=== PATIENT | male | born 1935 | race Caucasian/White ===

== ENCOUNTER → 2016-05-11 | Outpatient (CLI) | payer MEDICARE, BC | END | disposition home or self-care (01) | LOC: CPPFTMAIN 10:16 | PROVIDERS: ATTEND Internal Medicine | DX: J44.9 Chronic obstructive pulmonary disease, unspecified (principal) | CPT/HCPCS: 94060; 94726; 94729 ==

== ENCOUNTER 2017-03-31 07:30 | Day surgery (SDC) | payer MEDICARE, BC ==
[2017-03-30 10:50] VITALS: BMI 24.3
[~2017-03-31 07:30] MED LIST: LACTATED RINGERS 1,000 ML IV SCH
[2017-03-31 08:18] VITALS: TEMP 96.6
[2017-03-31] MEDS ORDERED: PROPOFOL 10 MG/ML 20 ML VIAL IV ONE (09:24)
--- NOTE | 2017-03-31 09:58 | P.PCN ---
Date of Procedure: 03/31/17 Procedure(s) Performed: Procedure: Total colonoscopy. Preoperative diagnosis: Screening for neoplasia, patient has history of polyps. Postoperative diagnosis: Exam within normal limits. Preparation: HalfLytely prep. Sedation: Was provided by anesthesia. Brief clinical history: The patient is an 81-year-old male who is scheduled for this evaluation for screening for neoplasia because of history of polyps. The patient has no abdominal complaints, bleeding or anemia. His last colonoscopy was around 5 years ago. Procedure: With the patient on his left lateral decubitus position and after informed consent and adequate sedation, the perianal area was inspected and it did not show any fissures or fistulas. There were no masses felt on digital rectal examination. The Olympus CFQ 160L video colonoscope was then inserted in the rectum in the usual fashion and advanced to the cecum. The mucosa appeared healthy. No polyps or tumors were seen or any obvious diverticular disease or other pathology. I retroflexed the endoscope in the rectum before the endoscope was withdrawn. The patient tolerated the procedure well. Plan: The patient was reassured. At his age, I did not recommend additional surveillance examinations and future colonoscopies can be based on his overall health and symptoms in the future. He will follow up with you as planned.
[2017-03-31 10:05] VITALS: RESP 18
[2017-03-31 10:50] VITALS: BP 145/80; PULSE 59
== END 2017-03-31 10:52 | disposition home or self-care (01) ==
LOC: ORWHC2ENDO 07:30
DX: Z12.11 Encounter for screening for malignant neoplasm of colon (principal); Z86.010 Personal history of colon polyps; I48.91 Unspecified atrial fibrillation; J45.909 Unspecified asthma, uncomplicated; I10 Essential (primary) hypertension; Z88.5 Allergy status to narcotic agent; Z88.0 Allergy status to penicillin; Z79.51 Long term (current) use of inhaled steroids; Z79.899 Other long term (current) drug therapy
CPT/HCPCS: J2704; G0105

== ENCOUNTER → 2017-09-19 | Outpatient (CLI) | payer MEDICARE, BC | END | disposition home or self-care (01) | LOC: LABWHC1 12:04 | PROVIDERS: ATTEND Orthopaedic Surgery | DX: E55.9 Vitamin D deficiency, unspecified (principal) | CPT/HCPCS: 36415; 82306 ==

== ENCOUNTER 2019-02-20 10:14 | Observation (INO) | payer MEDICARE, BC ==
--- NOTE | 2019-02-20 10:42 | ED ---
General Adult HPI - General Chief complaint: Chest Pain Stated complaint: Palpitations Source: patient, family Mode of arrival: ambulatory Limitations: no limitations - History of Present Illness Initial comments: 83-year-old male patient presents to the emergency department today for evaluation of left-sided chest pain and palpitations. He is having associated shortness of breath with this. Describes the pain as a pressure type feeling. Denied any pain radiating to his back. Patient states this started around 4:30 this morning and lasted about 4-5 hours. States that he is currently feeling better. Patient states he has been sick with upper respiratory infection incl uding cough and nasal congestion. States he is coughing up [place] sputum. Denies any wheezing. Does have a history of atrial fibrillation and is currently rate controlled and taking pradaxa. Patient denies any recent rash, fever, chills, abdominal pain, nausea, vomiting, diarrhea, constipation, back pain, numbness, tingling, dizziness, weakness, hematuria, dysuria, urinary urgency, urinary frequency, headache, visual changes, or any other complaints. - Related Data Home Medications Medication Instructions Recorded Confirmed Albuterol Inhaler [Ventolin Hfa 1 - 2 puff INHALATION Q6HR PRN 03/30/17 03/30/17 Inhaler] Atenolol [Tenormin] 25 mg PO DAILY 03/30/17 03/30/17 Budesonide/Formoterol Fumarate 2 puff INHALATION BID 03/30/17 03/30/17 [Symbicort 160-4.5 Mcg Inhaler] Cholecalciferol [Vitamin D3] 1,000 unit PO DAILY 03/30/17 03/30/17 Dabigatran [Pradaxa] 75 mg PO BID 03/30/17 03/30/17 Hydrochlorothiazide 25 mg PO DAILY 03/30/17 03/30/17 Latanoprost Ophth [Xalatan 0.005%] 1 drops BOTH EYES HS 03/30/17 03/30/17 Losartan [Cozaar] 25 mg PO DAILY 03/30/17 03/30/17 Allergies Allergy/AdvReac Type Severity Reaction Status Date / Time codeine Allergy Rash/Hives Verified 02/20/19 10:20 Penicillins Allergy facial Verified 02/20/19 10:20 swelling Review of Systems ROS Statement: Those systems with pertinent positive or pertinent negative responses have been documented in the HPI. ROS Other: All systems not noted in ROS Statement are negative. Past Medical History Past Medical History: Atrial Fibrillation, Asthma, Hypertension Additional Past Medical History / Comment(s): hx. colon polyps History of Any Multi-Drug Resistant Organisms: None Reported Past Surgical History: Heart Catheterization Additional Past Surgical History / Comment(s): colonoscopies Past Anesthesia/Blood Transfusion Reactions: No Reported Reaction Past Psychological History: No Psychological Hx Reported Smoking Status: Former smoker Past Alcohol Use History: None Reported Past Drug Use History: None Reported - Past Family History Sister(s) Family Medical History: Cancer Additional Family Medical History / Comment(s): colon Brother(s) Family Medical History: Cancer Additional Family Medical History / Comment(s): colon General Exam Limitations: no limitations General appearance: alert, in no apparent distress, other (This is a well- developed, well-nourished elderly male patient in no acute distress. Vital signs upon presentation are temperature 97.9F, pulse of 55, respirations 20, blood pressure 151/76, pulse ox 99% on room air.) Eye exam: Present: normal appearance, PERRL, EOMI. Absent: scleral icterus, conjunctival injection, periorbital swelling ENT exam: Present: normal exam, normal oropharynx, mucous membranes moist Respiratory exam: Present: normal lung sounds bilaterally. Absent: respiratory distress, wheezes, rales, rhonchi, stridor Cardiovascular Exam: Present: regular rate, irregular rhythm, normal heart sounds. Absent: systolic murmur, diastolic murmur, rubs, gallop, clicks GI/Abdominal exam: Present: soft, normal bowel sounds. Absent: distended, tenderness, guarding, rebound, rigid Neurological exam: Present: alert, oriented X3, CN II-XII intact Psychiatric exam: Present: normal affect, normal mood Skin exam: Present: warm, dry, intact, normal color. Absent: rash Course Vital Signs 02/20/19 02/20/19 02/20/19 10:17 10:30 11:00 Temperature 97.9 F Pulse Rate 55 L 71 49 L Respiratory 20 17 16 Rate Blood Pressure 151/76 160/80 O2 Sat by Pulse 99 98 98 Oximetry 02/20/19 02/20/19 11:30 12:20 Temperature 97.7 F Pulse Rate 50 L 47 L Respiratory 16 15 Rate Blood Pressure 149/95 158/97 O2 Sat by Pulse 98 100 Oximetry EKG Findings - EKG Comments: EKG Findings:: EKG obtained at 1027 shows atrial fibrillation with premature ventricular complexes. Ventricular rate is 61, QRS duration 100, QT 410, QTC 412. No evidence of ST elevation or depression. Medical Decision Making - Medical Decision Making 83-year-old male patient presents to the emergency department today after having 4 hour episode of left-sided chest pain and shortness of breath. Physical examination very clear equal lung sounds. He is in A. fib with a controlled ventricular response. Labs reviewed and were unremarkable. Initial troponin was negative. Giving history and symptoms we will admit to the hospital for further evaluation by cardiology and cardiac monitoring. He verbalizes understanding and agrees with this plan. - Lab Data Result diagrams: 02/20/19 10:39 02/20/19 10:39 Lab Results 02/20/19 02/20/19 02/20/19 Range/Units 10:39 10:39 10:39 WBC 5.2 (3.8-10.6) k/uL RBC 3.98 L (4.30-5.90) m/uL Hgb 12.2 L (13.0-17.5) gm/dL Hct 36.4 L (39.0-53.0) % MCV 91.4 (80.0-100.0) fL MCH 30.6 (25.0-35.0) pg MCHC 33.4 (31.0-37.0) g/dL RDW 12.0 (11.5-15.5) % Plt Count 144 L (150-450) k/uL Neutrophils % 68 % Lymphocytes % 18 % Monocytes % 6 % Eosinophils % 5 % Basophils % 0 % Neutrophils # 3.5 (1.3-7.7) k/uL Lymphocytes # 0.9 L (1.0-4.8) k/uL Monocytes # 0.3 (0-1.0) k/uL Eosinophils # 0.3 (0-0.7) k/uL Basophils # 0.0 (0-0.2) k/uL PT 12.4 H (9.0-12.0) sec INR 1.2 H (<1.2) APTT 37.5 H (22.0-30.0) sec Sodium 132 L (137-145) mmol/L Potassium 4.1 (3.5-5.1) mmol/L Chloride 97 L (98-107) mmol/L Carbon Dioxide 27 (22-30) mmol/L Anion Gap 8 mmol/L BUN 13 (9-20) mg/dL Creatinine 0.70 (0.66-1.25) mg/dL Est GFR (CKD-EPI)AfAm >90 (>60 ml/min/1.73 sqM) Est GFR (CKD-EPI)NonAf 88 (>60 ml/min/1.73 sqM) Glucose 101 H (74-99) mg/dL Calcium 9.8 (8.4-10.2) mg/dL Magnesium 1.6 (1.6-2.3) mg/dL Total Bilirubin 0.8 (0.2-1.3) mg/dL AST 33 (17-59) U/L ALT 28 (4-49) U/L Alkaline Phosphatase 56 (38-126) U/L Troponin I (0.000-0.034) ng/mL Total Protein 6.8 (6.3-8.2) g/dL Albumin 4.2 (3.5-5.0) g/dL 02/20/19 Range/Units 10:39 WBC (3.8-10.6) k/uL RBC (4.30-5.90) m/uL Hgb (13.0-17.5) gm/dL Hct (39.0-53.0) % MCV (80.0-100.0) fL MCH (25.0-35.0) pg MCHC (31.0-37.0) g/dL RDW (11.5-15.5) % Plt Count (150-450) k/uL Neutrophils % % Lymphocytes % % Monocytes % % Eosinophils % % Basophils % % Neutrophils # (1.3-7.7) k/uL Lymphocytes # (1.0-4.8) k/uL Monocytes # (0-1.0) k/uL Eosinophils # (0-0.7) k/uL Basophils # (0-0.2) k/uL PT (9.0-12.0) sec INR (<1.2) APTT (22.0-30.0) sec Sodium (137-145) mmol/L Potassium (3.5-5.1) mmol/L Chloride (98-107) mmol/L Carbon Dioxide (22-30) mmol/L Anion Gap mmol/L BUN (9-20) mg/dL Creatinine (0.66-1.25) mg/dL Est GFR (CKD-EPI)AfAm (>60 ml/min/1.73 sqM) Est GFR (CKD-EPI)NonAf (>60 ml/min/1.73 sqM) Glucose (74-99) mg/dL Calcium (8.4-10.2) mg/dL Magnesium (1.6-2.3) mg/dL Total Bilirubin (0.2-1.3) mg/dL AST (17-59) U/L ALT (4-49) U/L Alkaline Phosphatase (38-126) U/L Troponin I <0.012 (0.000-0.034) ng/mL Total Protein (6.3-8.2) g/dL Albumin (3.5-5.0) g/dL - Radiology Data Radiology results: report reviewed, image reviewed Two-view x-ray of the chest is obtained. Report reviewed in its entirety. Imp ression by Dr. Sanchez shows mild cardiomegaly and chronic parenchymal changes without definitive suspicious acute infiltrate. Disposition Clinical Impression: Chest pain, Palpitations Disposition: ADMITTED IP TO THIS [facility] Condition: Serious Referrals: Kolby Juarez MD [Primary Care Provider] - 1-2 days Decision to Admit Reason: Admit from EC Decision Date: 02/20/19 Decision Time: 12:43
[2019-02-20 11:11] LABS: Basophils % (A) 0 %; Eosinophils # (A) 0.3 k/uL (0-0.7); Eosinophils % (A) 5 %; HCT 36.4 % (39.0-53.0); HGB 12.2 gm/dL (13.0-17.5); Lymphocytes # (A) 0.9 k/uL (1.0-4.8); Lymphocytes % (A) 18 %; MCH 30.6 pg (25.0-35.0); MCHC 33.4 g/dL (31.0-37.0); MCV 91.4 fL (80.0-100.0); Mean Platelet Volume 8.8; Monocytes # (A) 0.3 k/uL (0-1.0); Monocytes % (A) 6 %; Neutrophils # (A) 3.5 k/uL (1.3-7.7); Neutrophils % (A) 68 %; Platelet Count 144 k/uL (150-450); RBC 3.98 m/uL (4.30-5.90); WBC 5.2 k/uL (3.8-10.6)
--- NOTE | 2019-02-20 11:11 | XR ---
EXAMINATION TYPE: XR chest 2V DATE OF EXAM: 02/20/2019 COMPARISON: NONE HISTORY: Productive cough for one month. TECHNIQUE: Frontal and lateral views of the chest are obtained. FINDINGS: There is chronic parenchymal change bilaterally most prominent in the bases where left bas ilar opacity favors scarring and/or atelectasis.. No suspicious focal infiltrate, pleural effusion, o r pneumothorax. The cardiac silhouette size is mildly enlarged with atherosclerotic aorta. Multileve l spurring in the spine. IMPRESSION: Mild cardiomegaly and chronic parenchymal changes without definitive suspicious acute in filtrate.
[2019-02-20 11:21] LABS: INR 1.2 (<1.2); Partial Thromboplastin Time 37.5 sec (22.0-30.0); Prothrombin Time 12.4 sec (9.0-12.0)
[2019-02-20 11:35] LABS: ALT 28 U/L (4-49); AST 33 U/L (17-59); African American GFR (CKD) >90 (>60 ml/min/1.73 sqM); Albumin 4.2 g/dL (3.5-5.0); Alkaline Phosphatase 56 U/L (38-126); Anion Gap 8 mmol/L; Blood Urea Nitrogen 13 mg/dL (9-20); Calcium 9.8 mg/dL (8.4-10.2); Carbon Dioxide 27 mmol/L (22-30); Chloride 97 mmol/L (98-107); Glucose 101 mg/dL (74-99); Magnesium 1.6 mg/dL (1.6-2.3); Non-African American GFR(CKD) 88 (>60 ml/min/1.73 sqM); Potassium 4.1 mmol/L (3.5-5.1); Sodium 132 mmol/L (137-145); Total Bilirubin 0.8 mg/dL (0.2-1.3); Total Protein 6.8 g/dL (6.3-8.2)
[2019-02-20] MEDS ORDERED: NALOXONE 0.4 MG/ML 1 ML VIAL IV PRN (12:40)
[2019-02-20] MEDS ORDERED: MORPHINE SULFATE 4 MG/ML SYRINGE IVP PRN (12:43)
[2019-02-20] MEDS ORDERED: ASPIRIN 325 MG TAB PO STA (15:27)
[2019-02-20] MEDS ORDERED: traMADol 50 MG TAB PO PRN (15:30)
[2019-02-20] MEDS ORDERED: MELATONIN 3 MG TABLET PO PRN (15:30)
[2019-02-20] MEDS ORDERED: ACETAMINOPHEN TAB 325 MG TAB PO PRN (15:30)
[2019-02-20] MEDS ORDERED: ALBUTEROL NEBULIZED 2.5 MG/3 ML INHALATION PRN (15:44)
--- NOTE | 2019-02-20 15:53 | P.HPIM ---
History of Present Illness H&P Date: 02/20/19 Chief Complaint: chest pain Issue is a 83-year-old male past medical history of hypertension, A. fib anticoagulated with heart attacks, arthritis, GERD, and asthma who presented to the ER with complaints of chest pain. In the ER he underwent an extensive evaluation. His blood pressure was mildly elevated on arrival with a blood pressure 151/76. EKG showed atrial fibrillation with a slow ventricular response but no significant ST-T wave changes. Initial laboratory analysis showed a mild anemia with hemoglobin 12.2, platelet 144, sodium 132, and troponin was negative. He is admitted for chest pain observation. Patient seen and examined at bedside with present. He reports that he has been struggling with a cough beginning of January. He reports that he has been having some coughing productive of grayish sputum, postnasal drip, runny nose, and stuffy nose. He has been having some shortness of breath and intermittent wheezing. He has seen Dr. Juarez for this and completed 2 courses of antibiotics without significant improvement. He reports that he has been using nebulizer and inhalers appropriately. This morning he awoke suddenly with left sided chest heaviness which she states was worse when trying to lift his left arm. Was associated with increased shortness of breath area he did not take any aspirin but did take some Tylenol which seemed to help. He denied any associated sweating, nausea, vomiting, palpitations, numbness, tingling, or pain down his left arm or up into his jaw. He has never had a heart attack in the past. Pain is currently relieved it is not reproducible. Review of Systems Pertinent positives and negatives as discussed in HPI, a complete review of systems was performed and all other systems are negative. Past Medical History Past Medical History: Atrial Fibrillation, Asthma, Hypertension, Osteoarthritis (OA) Additional Past Medical History / Comment(s): hx. colon polyps, GERD, glaucoma, borderline diabetes mellitus History of Any Multi-Drug Resistant Organisms: None Reported Past Surgical History: Heart Catheterization Additional Past Surgical History / Comment(s): colonoscopies Past Anesthesia/Blood Transfusion Reactions: No Reported Reaction Past Psychological History: No Psychological Hx Reported Smoking Status: Former smoker Past Alcohol Use History: Occasional Additional Past Alcohol Use History / Comment(s): Drinks twice weekly, quit smoking @age of 33, smoked from late teen's to 33 Past Drug Use History: None Reported Additional History: Lives with his , no assistive devices - Past Family History Sister(s) Family Medical History: Cancer Additional Family Medical History / Comment(s): colon Brother(s) Family Medical History: Cancer Additional Family Medical History / Comment(s): colon Medications and Allergies Home Medications Medication Instructions Recorded Confirmed Type Albuterol Inhaler [Ventolin Hfa 1 - 2 puff INHALATION RT-Q6H PRN 03/30/17 02/20/19 History Inhaler] Atenolol [Tenormin] 25 mg PO DAILY 03/30/17 02/20/19 History Budesonide/Formoterol Fumarate 2 puff INHALATION RT-BID 03/30/17 02/20/19 Hi story [Symbicort 160-4.5 Mcg Inhaler] Cholecalciferol [Vitamin D3] 1,000 unit PO DAILY 03/30/17 02/20/19 History Dabigatran [Pradaxa] 75 mg PO BID 03/30/17 02/20/19 History Hydrochlorothiazide 25 mg PO DAILY 03/30/17 02/20/19 History Latanoprost Ophth [Xalatan 0.005%] 1 drops RIGHT EYE HS 03/30/17 02/20/19 History Albuterol Nebulized [Ventolin 2.5 mg INHALATION RT-Q6H PRN 02/20/19 02/20/19 History Nebulized] Fluticasone Nasal [place] [Flonase 1 spr EA NOSTRIL HS 02/20/19 02/20/19 History Nasal [place]] Losartan Potassium [Cozaar] 100 mg PO DAILY 02/20/19 02/20/19 History Allergies Allergy/AdvReac Type Severity Reaction Status Date / Time codeine Allergy Rash/Hives Verified 02/20/19 12:56 Penicillins Allergy facial Verified 02/20/19 12:56 swelling Physical Exam Osteopathic Statement: *. No significant issues noted on an osteopathic structural exam other than those noted in the History and Physical/Consult. Vitals: Vital Signs Temp Pulse Pulse Resp BP BP Pulse Ox 02/20/19 13:38 97.3 F L 18 174/92 96 02/20/19 13:14 98.0 F 65 17 165/74 100 02/20/19 12:55 47 L 15 02/20/19 12:20 97.7 F 47 L 15 158/97 100 02/20/19 11:30 50 L 16 149/95 98 02/20/19 11:00 49 L 16 160/80 98 02/20/19 10:30 71 17 98 02/20/19 10:17 97.9 F 55 L 20 151/76 99 Intake and Output 02/20/19 02/20/19 02/20/19 06:59 14:59 22:59 Other: Weight 74.843 kg General: non toxic, no distress, appears at stated age, normal weight Derm: no unusual rashes/lesions no unusual ecchymoses, warm, dry Head: atraumatic, normocephalic, symmetric Eyes: EOMI, no lid lag, anicteric sclera, pupils equal round reactive to light ENT: Nose and ears atraumatic, no thrush, no pharyngeal erythema Neck: No thyromegaly, no cervical lymphadenopathy, trachea midline, supple Mouth: no lip lesion, mucus membranes moist Cardiovascular: S1S2 reg, no murmur, positive posterior tibial pulse bilateral, 2+ edema, capillary refill less than 2 seconds Lungs: Rhonchi right base , no accessory muscle use Abdominal: soft, nontender to palpation, no guarding, no appreciable orga nomegaly, normal bowel sounds Ext: no gross muscle atrophy, muscle strength 5 out of 5 in all 4 extremities grossly, no contractures, Neuro: CN II-XI grossly intact, light touch intact all 4 extremities, finger to nose within normal limits, Psych: Alert, oriented, appropriate affect Results CBC & Chem 7: 02/20/19 10:39 02/20/19 10:39 Labs: Abnormal Lab Results - Last 24 Hours (Table) 02/20/19 02/20/19 02/20/19 Range/Units 10:39 10:39 10:39 RBC 3.98 L (4.30-5.90) m/uL Hgb 12.2 L (13.0-17.5) gm/dL Hct 36.4 L (39.0-53.0) % Plt Count 144 L (150-450) k/uL Lymphocytes # 0.9 L (1.0-4.8) k/uL PT 12.4 H (9.0-12.0) sec INR 1.2 H (<1.2) APTT 37.5 H (22.0-30.0) sec Sodium 132 L (137-145) mmol/L Chloride 97 L (98-107) mmol/L Glucose 101 H (74-99) mg/dL Chest x-ray: report reviewed Thrombosis Risk Factor Assmnt - DVT/VTE Prophylaxis DVT/VTE Prophylaxis: Pharmacologic Prophylaxis ordered Assessment and Plan Assessment: Chest pain -Suspect pleuritic but does have risk factors for possible coronary artery disease -Aspirin 1 now -Follow troponin -Lipid profile in a.m. -Telemetry -Cardiology consult - BB Lower extremity edema -Check BNP -Check echo. Concern for development of congestive heart failure Acute exacerbation of asthma -Scheduled bronchodilators, steroids, pulmonary hygiene HTN elevated on arrival - folow BP - resume home meds The patient is placed in observation with an anticipated less than 2 midnight stay for evaluation of chest pain. Surrogate decision-maker: CODE STATUS:full DVT prophylaxis: scds Discussed with: patient, , nursing, ed physician Anticipated discharge date: 1-[address]: home A total of 65 minutes was spent on the care of this complex patient more than 50% of the time was spent in counseling and care coordination.
[2019-02-20] MEDS: predniSONE 20 MG TAB PO SCH (16:25)
[2019-02-20] MEDS: ALBUTEROL NEBULIZED 2.5 MG/3 ML INHALATION SCH ×2 (19:32→19:47)
[2019-02-20] MEDS ORDERED: MAG HYDROX/AL HYDROX/SIMETH 30 ML CUP PO PRN (19:45)
[2019-02-20] MEDS: SYMBICORT 160-4.5 MCG INHALER INHALATION SCH (19:47)
[2019-02-20] MEDS: DABIGATRAN 75 MG CAP PO SCH (20:17)
[2019-02-20] MEDS ORDERED: FLUTICASONE 50MCG/SPRAY NASAL 16GM EA NOSTRIL SCH (21:00)
[2019-02-20] MEDS ORDERED: LATANOPROST 0.005% OPHTH DROPS 2.5 ML BTL RIGHT EYE SCH (21:00)
[2019-02-21 05:33] LABS: African American GFR (CKD) >90 (>60 ml/min/1.73 sqM); Anion Gap 6 mmol/L; Blood Urea Nitrogen 16 mg/dL (9-20); Calcium 9.5 mg/dL (8.4-10.2); Carbon Dioxide 27 mmol/L (22-30); Chloride 99 mmol/L (98-107); Cholesterol 146 mg/dL (<200); Glucose 141 mg/dL (74-99); HDL Cholesterol 53 mg/dL (40-60); LDL Cholesterol,Calculated 78 mg/dL (0-99); Non-African American GFR(CKD) 88 (>60 ml/min/1.73 sqM); Potassium 4.3 mmol/L (3.5-5.1); Sodium 132 mmol/L (137-145); Triglycerides 75 mg/dL (<150)
[2019-02-21 07:33] VITALS: BP 162/72; RESP 18; TEMP 97.6
[2019-02-21] MEDS: ALBUTEROL NEBULIZED 2.5 MG/3 ML INHALATION SCH ×2 (07:55→11:31)
[2019-02-21] MEDS: SYMBICORT 160-4.5 MCG INHALER INHALATION SCH (07:55)
[2019-02-21] MEDS: predniSONE 20 MG TAB PO SCH (08:23)
[2019-02-21] MEDS: ATENOLOL 25 MG TAB PO SCH ×2 (08:23→10:05)
[2019-02-21] MEDS: DABIGATRAN 75 MG CAP PO SCH (08:23)
[2019-02-21] MEDS ORDERED: CHOLECALCIFEROL 1,000 UNIT TAB PO SCH (09:00)
[2019-02-21] MEDS ORDERED: LOSARTAN 50 MG TAB PO SCH (09:00)
[2019-02-21] MEDS ORDERED: ASPIRIN 81 MG PO SCH (09:00)
[2019-02-21] MEDS ORDERED: HYDROCHLOROTHIAZIDE 25 MG TAB PO SCH (09:00)
[2019-02-21] MEDS ORDERED: FUROSEMIDE 10 MG/ML 2 ML VIAL IV ONE (11:20)
[2019-02-21] MEDS ORDERED: POTASSIUM CHLORIDE ER 20 MEQ TAB.ER PO STA (11:23)
[2019-02-21] MEDS ORDERED: guaiFENesin SYRUP 100MG/5ML 200 MG/10 ML CUP PO PRN (11:28)
--- NOTE | 2019-02-21 11:29 | P.CRDCN ---
History of Present Illness Consult date: 02/21/19 Reason for Consult (text): Chest pain/palpitations Consult reason: chest pain Chief complaint: Chest pain/palpitations History of present illness: HISTORY OF PRESENT ILLNESS AND PLAN: This is a 83 -year-old male with history of GERD, OA, hypertension, hyperlipidemia, chronic atrial fibrillation anticoagulated with pradaxa, mild pulmonary hypertension and recent complaints of chest pain/palpitations. Patient here after recent treatment for productive intractable cough since January 21 with 2 rounds of antibiotics. Patient states he has been battling upper respiratory infection with intractable cough which has been productive since January 21. Patient did receive his pneumonia shot and flu shot this season. Patient describes chest pain as left arm/left chest wall pain and midsternal pressure at times. Chest x-ray shows no acute cardiology process with mild cardiomegaly. Patient has had no steroids with prior treatment of URI. States cough is productive and sputum is [place]on with yellow streaks. Patient EKG shows atrial fibrillation with PVCs at controlled rate. No acute cardiology process. Troponins negative 3. Vital signs stable. Good saturation on room air. Afebrile. Pt has no current complaints of chest pain, chest pressure, shortness of breath or palpitations, even with ambulation. Patient follows with Dr. Davila regularly in the office. Most recent echo June 2017 shows preserved EF at 60%. No smoking. No DM. SIGNIFICANT PAST MEDICAL HISTORY: GERD, OA, hypertension, hyperlipidemia, chronic atrial fibrillation anticoagulated with pradaxa, mild pulmonary hypertension. PAST SURGICAL HISTORY: See list. EKG = Afib with PVC, no acute process. HR 61 Troponins negative x 3 SIGNIFICANT LABORATORY VALUES: CBC WNL. Troponins negative x3. D-Dimer WNL. Chest x-ray = No acute process. Mild cardiomegaly. Most recent echo 06/2017 = EF 60%, mild concentric LVH. Severe left atrial dilatation. Mild AR. Mild MR. Mild to moderate TR. PASP 45mmhg. Most recent stress testing 06/2017 = Poor exercise tolerance. Nondiagnostic EKG. Probably abnormal MPI. Partially reversible apical lateral wall defect could represent stress-induced ischemia and circumflex territory. REVIEW OF SYSTEMS: CONSTITUTIONAL: Denies fever. Denies chills. EYES: Denies blurred vision. Denies blurred vision or vision changes. Denies eye pain. EARS, NOSE, MOUTH & THROAT: Denies headache. Denies sore throat. Denies ear pain Denies hemoptysis. CARDIOVASCULAR: C/O prior chest pain, none currently. Denies shortness of breath. Denies orthopnea. Denies PND. C/O prior palpitations, none currently. RESPIRATORY: C/O intractable cough. Denies shortness of breath. GASTROINTESTINAL: Denies abdominal pain or distention. Denies diarrhea. Denies constipation. Denies nausea. Denies vomiting. MUSCULOSKELETAL: C/O myalgias. C/O left chest wall pain with movement on LEFT arm. INTEGUMENTARY: Denies pruitis. Denies rash. ENDOCRINE: C/O fatigue. Denies weight change. Denies polydipsia. Denies polyurina Denies heat/cold intolerance. GENITOURINARY: Denies burning, hematuria or urgency with micturation. HEMATOLOGIC: Denies history of anemia. Denies bleeding. NEUROLOGIC: Denies numbness. Denies tingling. Denies weakness. PSYCHIATRIC: Denies anxiety. Denies depression. PHYSICAL EXAM: VITAL SIGNS: 162/72, heart rate 61. 99% on room air. Afebrile. GENERAL: Well developed, in no acute distress. HEENT: Head is atraumatic, normocephalic. Pupils are equal, round. Extra ocular movements intact. Mucous membranes moist. Neck supple. No JVD. No carotid bruit. No thyromegaly. LUNGS: Mild crackles to bases bilaterally wtih auscultation. No wheezes, rales or rhonchi. Chest wall tenderness on palpation and with deep breathing. HEART: Irregular rhythm, controlled rate. No rubs or gallops. S1 and S2 heard. No murmur. ABDOMEN: Abdominal exam, WNL. Bowel sounds x4 quads. Soft, non-tender, without masses, organomegaly, or abdominal aorta enlargement. EXTREMITIES/VASCULAR: Extremities have easily palpable radial, femoral, dorsalis pedis and posterior tibial pulses. No cyanosis, calf tenderness. No BLE edema. NEUROLOGIC: Patient is awake, alert and oriented x3. No focal neurologic abnormalities. FINAL IMPRESSION: 1. Intractable cough 2. Upper respiratory tract infection times one month 3. Chronic atrial fibrillation, controlled rate and anticoagulated 4. Hypertension 5. Hyperlipidemia PLAN: Intractable cough due to ongoing URI. Continue with antibiotics, PRN inhalers and oral steroids. Consider Robitussin AC as well. IV lasix 20 mg once. Atypical chest pain. Continue all other medical/medication regime. Clear for discharge from cardiology perspective. Patient to follow-up with Dr. Davila in one to 2 weeks after discharge. Will consider outpatient echocard iogram and stress testing after URI is resolved. Heart healthy diet. Nurse Practitioner note has been reviewed by the Physician. Signing provider agrees with the documented findings, assessment and plan of care. Past Medical History Past Medical History: Atrial Fibrillation, Asthma, Hypertension, Osteoarthritis (OA) Additional Past Medical History / Comment(s): hx. colon polyps, GERD, glaucoma, borderline diabetes mellitus History of Any Multi-Drug Resistant Organisms: None Reported Past Surgical History: Heart Catheterization Additional Past Surgical History / Comment(s): colonoscopies Past Anesthesia/Blood Transfusion Reactions: No Reported Reaction Past Psychological History: No Psychological Hx Reported Smoking Status: Former smoker Past Alcohol Use History: Occasional Additional Past Alcohol Use History / Comment(s): Drinks twice weekly, quit smoking @age of 33, smoked from late teen's to 33 Past Drug Use History: None Reported - Past Family History Sister(s) Family Medical History: Cancer Additional Family Medical History / Comment(s): colon Brother(s) Family Medical History: Cancer Additional Family Medical History / Comment(s): colon Medications and Allergies Home Medications Medication Instructions Recorded Confirmed Type Albuterol Inhaler [Ventolin Hfa 1 - 2 puff INHALATION RT-Q6H PRN 03/30/17 02/20/19 History Inhaler] Atenolol [Tenormin] 25 mg PO DAILY 03/30/17 02/20/19 History Budesonide/Formoterol Fumarate 2 puff INHALATION RT-BID 03/30/17 02/20/19 History [Symbicort 160-4.5 Mcg Inhaler] Cholecalciferol [Vitamin D3] 1,000 unit PO DAILY 03/30/17 02/20/19 History Dabigatran [Pradaxa] 75 mg PO BID 03/30/17 02/20/19 History Hydrochlorothiazide 25 mg PO DAILY 03/30/17 02/20/19 History Latanoprost Ophth [Xalatan 0.005%] 1 drops RIGHT EYE HS 03/30/17 02/20/19 History Albuterol Nebulized [Ventolin 2.5 mg INHALATION RT-Q6H PRN 02/20/19 02/20/19 History Nebulized] Fluticasone Nasal [place] [Flonase 1 spr EA NOSTRIL HS 02/20/19 02/20/19 History Nasal [place]] Losartan Potassium [Cozaar] 100 mg PO DAILY 02/20/19 02/20/19 History Allergies Allergy/AdvReac Type Severity Reaction Status Date / Time codeine Allergy Rash/Hives Verified 02/20/19 12:56 Penicillins Allergy facial Verified 02/20/19 12:56 swelling Physical Exam Vitals: Vital Signs Temp Pulse Pulse Resp BP BP BP 02/21/19 08:06 64 02/21/19 08:00 61 18 02/21/19 07:57 60 02/21/19 07:32 97.6 F 61 18 162/72 02/21/19 04:00 97.9 F 71 16 132/80 02/21/19 03:34 18 02/21/19 00:00 17 02/20/19 22:58 97.7 F 85 17 171/64 02/20/19 20:00 18 02/20/19 19:59 66 02/20/19 19:50 65 02/20/19 19:16 97.8 F 88 18 180/78 02/20/19 15:45 67 18 152/73 02/20/19 13:38 97.3 F L 18 174/92 02/20/19 13:14 98.0 F 65 17 165/74 02/20/19 12:55 47 L 15 02/20/19 12:20 97.7 F 47 L 15 158/97 02/20/19 11:30 50 L 16 149/95 Pulse Ox 02/21/19 08:06 02/21/19 08:00 02/21/19 07:57 02/21/19 07:32 99 02/21/19 04:00 97 02/21/19 03:34 02/21/19 00:00 02/20/19 22:58 97 02/20/19 20:00 02/20/19 19:59 02/20/19 19:50 02/20/19 19:16 98 02/20/19 15:45 97 02/20/19 13:38 96 02/20/19 13:14 100 02/20/19 12:55 02/20/19 12:20 100 02/20/19 11:30 98 Intake and Output 02/20/19 02/21/19 02/21/19 22:59 06:59 14:59 Intake Total 420 Balance 420 Intake: Oral 420 Other: # Voids 1 1 Results 02/20/19 10:39 02/21/19 04:50 Cardiac Enzymes 02/20/19 02/20/19 02/20/19 Range/Units 10:39 10:39 16:22 AST 33 (17-59) U/L Troponin I <0.012 <0.012 (0.000-0.034) ng/mL 02/20/19 Range/Units 22:28 AST (17-59) U/L Troponin I <0.012 (0.000-0.034) ng/mL Coagulation 02/20/19 Range/Units 10:39 PT 12.4 H (9.0-12.0) sec APTT 37.5 H (22.0-30.0) sec Lipids 02/21/19 Range/Units 04:50 Triglycerides 75 (<150) mg/dL Cholesterol 146 (<200) mg/dL HDL Cholesterol 53 (40-60) mg/dL CBC 02/20/19 Range/Units 10:39 WBC 5.2 (3.8-10.6) k/uL RBC 3.98 L (4.30-5.90) m/uL Hgb 12.2 L (13.0-17.5) gm/dL Hct 36.4 L (39.0-53.0) % Plt Count 144 L (150-450) k/uL Comprehensive Metabolic Panel 02/20/19 02/21/19 Range/Units 10:39 04:50 Sodium 132 L 132 L (137-145) mmol/L Potassium 4.1 4.3 (3.5-5.1) mmol/L Chloride 97 L 99 (98-107) mmol/L Carbon Dioxide 27 27 (22-30) mmol/L BUN 13 16 (9-20) mg/dL Creatinine 0.70 0.69 (0.66-1.25) mg/dL Glucose 101 H 141 H (74-99) mg/dL Calcium 9.8 9.5 (8.4-10.2) mg/dL AST 33 (17-59) U/L ALT 28 (4-49) U/L Alkaline Phosphatase 56 (38-126) U/L Total Protein 6.8 (6.3-8.2) g/dL Albumin 4.2 (3.5-5.0) g/dL Current Medications Generic Name Dose Route Start Last Admin Trade Name Freq PRN Reason Stop Dose Admin Acetaminophen 650 mg 02/20/19 15:30 02/21/19 00:27 Tylenol Tab PO 650 mg Q6HR PRN Administration Mild Pain or Fever > 100.5 Al Hydroxide/Mg Hydroxide 30 ml 02/20/19 19:45 02/20/19 20:18 Maalox PO 30 ml Q4HR PRN Administration GI Upset Albuterol Sulfate 2.5 mg 02/20/19 15:44 Ventolin Nebulized INHALATION RT-Q6H PRN Shortness Of Breath Albuterol Sulfate 2.5 mg 02/20/19 16:00 02/21/19 07:55 Ventolin Nebulized INHALATION 2.5 mg RT-QID NAYLA Administration Aspirin 81 mg 02/21/19 09:00 02/21/19 08:24 Aspirin PO 81 mg DAILY NAYLA Administration Atenolol 25 mg 02/21/19 09:00 02/21/19 10:05 Tenormin PO 25 mg DAILY NAYLA Administration Budesonide/Formoterol Fumarate 2 puff 02/20/19 20:00 02/21/19 07:55 Symbicort 160-4.5 Mcg Inhaler INHALATION 2 puff RT-BID NAYLA Administration Cholecalciferol 1,000 unit 02/21/19 09:00 02/21/19 08:24 Vitamin D3 (25 Mcg = 1000 Iu) PO 1,000 unit DAILY NAYLA Administration Dabigatran 75 mg 02/20/19 21:00 02/21/19 08:23 Pradaxa PO 75 mg BID NAYLA Administration Fluticasone Propionate 1 spray 02/20/19 21:00 02/20/19 20:17 Flonase Nasal [place] EA NOSTRIL 1 spray HS NAYLA Administration Hydrochlorothiazide 25 mg 02/21/19 09:00 02/21/19 08:24 Hydrodiuril PO 25 mg DAILY NAYLA Administration Latanoprost 1 drops 02/20/19 21:00 02/20/19 20:17 Xalatan 0.005% RIGHT EYE 1 drops HS NAYLA Administration Losartan Potassium 100 mg 02/21/19 09:00 02/21/19 08:24 Cozaar PO 100 mg DAILY NAYLA Administration Melatonin 3 mg 02/20/19 15:30 02/21/19 00:27 Melatonin PO 3 mg HS PRN Administration Insomnia Naloxone HCl 0.2 mg 02/20/19 12:40 Narcan IV Q2M PRN Opioid Reversal Prednisone 40 mg 02/20/19 15:45 02/21/19 08:23 PO 40 mg DAILY NAYLA Administration Tramadol HCl 50 mg 02/20/19 15:30 Ultram PO Q6H PRN Moderate Pain Intake and Output 02/20/19 02/21/19 02/21/19 22:59 06:59 14:59 Intake Total 420 Balance 420 Intake: Oral 420 Other: # Voids 1 1 02/20/19 10:39 02/21/19 04:50 - EKG Interpretation EKG shows: atrial fibrillation (controlled rate)
[2019-02-21 11:33] VITALS: PULSE 60
--- NOTE | 2019-02-21 13:32 | P.DS ---
Providers Date of admission: 02/20/19 12:38 Attending physician: Edith Hussein DO Consults: 02/20/19 12:41 Consult Physician Routine Consulting Provider: [facility] Consult Reason/Comments: Chest pain; palpitations Do you want consulting provider notified?: Yes Primary care physician: Kolby Juarez [facility] Course: Date of admission: 02/20/2019 Date of discharge: 02/21/2019 Consultants: Cardiology Reason for admission: Chest pain Discharge diagnosis: 1. Atypical chest pain, clinically most probably pleuritic versus musculoskeletal in nature in view of recent URI 2. COPD 3. subacute cough after recent URI 4. Hypertension 5. Atrial fibrillation on chronic anticoagulation 6. Mild hyponatremia 7. Mild thrombocytopenia History of present illness: This is a very pleasant 82-year-old male with history of A. fib, asthma, hypertension who came in with complaint of left-sided chest pain which characteristics were atypical. Pain was provoked with deep breaths and cough. No changes in the pain with changes in the body position. His blood pressure was also elevated. He was admitted under observation and for cardiology evaluation. Couple weeks prior to this admission he had developed URI and subsequent cough has been treated with 2 courses of antibiotics. He did not complain here of any shortness of breath or any bothers of cough or expectoration admission. Hospital course: Initial workup included serial troponins were negative, EKG without acute changes and chest x-ray that was stable. He was evaluated by cardiology that felt patient was stable for discharge without further adjustment of his medications in no further testing. Recommend follow-up in the office 1 week. Next the patient was given 2 doses of systemic steroids orally here in the hospital. However the day of discharge he was in the room air ambulating in the room without any shortness of breath. His lungs were clear to auscultation without any wheezing or crackles. His cough was very mild nonproductive. Has what he said discharge patient is usual home medications and no further prednisone. Advised to follow-up with primary care physician and cardiology as outlined in the discharge instructions. Further evaluation of his cough to involve postnasal drip and possible further imaging if needed, although I explained to the patient that some cough after URI is possible even for up to 6 weeks. We will also recommend him rechecking his electrolytes due to mild hyponatremia, we did not opt to discontinue his hydrochlorothiazide at this time. Also recommend follow-up CBC due to very mild thrombocytopenia.This can be achieved an outpatient basis On the day of discharge patient was doing very well did not have any complaints of any discomfort. Physical examination day of discharge: Vital Signs: I have reviewed the vital signs. GENERAL: Well-nourished, Well-developed , no apparent distress, cooperative Eyes: PERRL, extraoculry movements intact, clear conjunctiva Head: : Atraumatic external nose and ears, oropharyngeal mucosa is moist without lesions or exudates Neck: Symmetric, trachea midline, No thyromegaly, no masses or neck vain pulsation, no neck rigidity CVS: +S1/S2, No murmurs or gallops. Peripheral pulses 2+ and equal in all extremities. RESP: Unlabored respiratory effort. Clear to auscultation bilaterally. Abdomen: Bowel sounds present in all 4 quadrants, Soft to palpation, Nontender/Nondistended, No hepatosplenomegaly, no hernias or masses, no CVA tnderness Musculoskeletal: Extremities w/o deformity, No cyanosis or clubbing, no joint swelling Psych: Awake, Alert, & Oriented (AAO) x3 Appropriate mood and affect Patient Condition at Discharge: Serious Plan - Discharge Summary New Discharge Prescriptions: Continue Latanoprost Ophth [Xalatan 0.005%] 1 drops RIGHT EYE HS Dabigatran [Pradaxa] 75 mg PO BID Cholecalciferol [Vitamin D3 (25 Mcg = 1000 Iu)] 1,000 unit PO DAILY Budesonide/Formoterol Fumarate [Symbicort 160-4.5 Mcg Inhaler] 2 puff INHALATION RT-BID Atenolol [Tenormin] 25 mg PO DAILY Albuterol Inhaler [Ventolin Hfa Inhaler] 1 - 2 puff INHALATION RT-Q6H PRN PRN Reason: Dyspnea Hydrochlorothiazide 25 mg PO DAILY Fluticasone Nasal [place] [Flonase Nasal [place]] 1 spr EA NOSTRIL HS Losartan Potassium [Cozaar] 100 mg PO DAILY Albuterol Nebulized [Ventolin Nebulized] 2.5 mg INHALATION RT-Q6H PRN PRN Reason: Shortness Of Breath Discharge Medication List Albuterol Inhaler [Ventolin Hfa Inhaler] 1 - 2 puff INHALATION RT-Q6H PRN 03/30/17 [History] Atenolol [Tenormin] 25 mg PO DAILY 03/30/17 [History] Budesonide/Formoterol Fumarate [Symbicort 160-4.5 Mcg Inhaler] 2 puff INHALATION RT-BID 03/30/17 [History] Cholecalciferol [Vitamin D3 (25 Mcg = 1000 Iu)] 1,000 unit PO DAILY 03/30/17 [History] Dabigatran [Pradaxa] 75 mg PO BID 03/30/17 [History] Hydrochlorothiazide 25 mg PO DAILY 03/30/17 [History] Latanoprost Ophth [Xalatan 0.005%] 1 drops RIGHT EYE HS 03/30/17 [History] Albuterol Nebulized [Ventolin Nebulized] 2.5 mg INHALATION RT-Q6H PRN 02/20/19 [History] Fluticasone Nasal [place] [Flonase Nasal [place]] 1 spr EA NOSTRIL HS 02/20/19 [History] Losartan Potassium [Cozaar] 100 mg PO DAILY 02/20/19 [History] Follow up Appointment(s)/Referral(s): Acacia Davila MD [STAFF PHYSICIAN] - 1 Week Kolby Juarez MD [Primary Care Provider] - 1-2 days Patient Instructions/Handouts: Chest Pain (DC) Discharge Disposition: HOME SELF-CARE
== END 2019-02-21 12:52 | disposition home or self-care (01) ==
LOC: EC 10:14 → 1SOBS 12:38
PROVIDERS: ADMIT Internal Medicine; ATTEND Internal Medicine
DX: R07.89 Other chest pain (principal); D69.6 Thrombocytopenia, unspecified; E78.5 Hyperlipidemia, unspecified; E87.1 Hypo-osmolality and hyponatremia; I10 Essential (primary) hypertension; I27.20 Pulmonary hypertension, unspecified; I48.20 Chronic atrial fibrillation, unspecified; I49.3 Ventricular premature depolarization; J44.9 Chronic obstructive pulmonary disease, unspecified; J45.901 Unspecified asthma with (acute) exacerbation; Z79.01 Long term (current) use of anticoagulants; Z79.51 Long term (current) use of inhaled steroids; Z79.899 Other long term (current) drug therapy; Z87.19 Personal history of other diseases of the digestive system; Z87.891 Personal history of nicotine dependence; Z88.5 Allergy status to narcotic agent; Z88.0 Allergy status to penicillin; R60.0 Localized edema
CPT/HCPCS: 96374; 99285; 36415; 94640 ×4; 93005; 85379; 83880; 80061; 80053; 80048; 83735; 84484; 85025; 85610; 85730; 71046; G0378 ×2; J1940; J7512 ×2

== ENCOUNTER → 2019-12-20 | Outpatient (CLI) | payer MEDICARE, BC ==
--- NOTE | 2019-12-23 14:20 | MR ---
EXAMINATION TYPE: MR foot RT wo/w con DATE OF EXAM: 12/20/2019 COMPARISON: NONE HISTORY: 84-year-old male M79.671, pain along the bottom of the heel. Technique: Multiplanar, multisequence images of the the hindfoot and ankle were obtained before and a fter administration of 7 mL intravenous Gadavist gadolinium contrast. FINDINGS: There is a small to moderate-sized plantar calcaneal spur and only minimal thickening of the 5 mm at the origin of the plantar fascia. No abnormal fascial or perifascial edema or adjacent bone marrow ed drew. There is overlying marker indicating the area of concern directly overlying this region. The calcanea l fat pad here appears thin with low signal. Generalized soft tissue edema throughout the distal leg, ankle, and midfoot/hindfoot region. There is some replacement of the normal fatty signal within the sinus Tarsi. There is some cystic change at the lateral talar process and angle of [place]. Achilles tendon is intact. 2.1 x 0.6 cm elongated ganglion cyst arising from the sinus Tarsi extending dorsally to the level of the talonavicular joint. An additional 1.1 x 9 mm ganglion cyst is present posteriorly at the level of the tibiotalar joint th at may arise from the adjacent flexor digitorum longus tendon sheath. Scattered mild tenosynovial flu id along the medial flexor tendons and scattered moderate tenosynovial fluid along the lateral perone al tendon sheaths. The ATFL is very thin and difficult to visualize, probably chronically injured. CFL is thickened and slightly heterogeneous. The PTFL appears grossly intact. The deep posterior deltoid ligament fibers are intact. No acute fracture or suspicious bone marrow replacement. IMPRESSION: 1. Generalized soft tissue swelling throughout. Correlate as to etiology. 2. Marker indicating the area of concern along the plantar aspect of the heel. There is thinning of t he underlying calcaneal fat pad with diminished fat signal. Consider calcaneal fat pad atrophy/heel p ad syndrome. While there is a small to moderate-sized heel spur, no specific findings of plantar fasc iitis by MRI. 3. Moderate tenosynovitis along the peroneal tendons. 4. Some reactive bony changes at the lateral talar process and calcaneal angle of [place]. Correlate for any potential symptoms of extra-articular lateral hindfoot impingement. 5. A 2.1 x 0.6 cm ganglion cyst arising from the sinus tarsi extending dorsally. Additional small 1.1 cm ganglion cyst posteriorly at the ankle may be arising from the adjacent FDL tendon sheath. 6. Signal replacement within the sinus tarsi can be seen with a subtalar joint sprain or sinus tarsi syndrome. 7. Possible chronic tear of the ATFL and either low-grade or chronic sprain of the CFL.
== END | disposition home or self-care (01) ==
LOC: RADMRIMAIN 12:38
PROVIDERS: ATTEND Family Medicine
DX: M79.89 Other specified soft tissue disorders (principal); E65 Localized adiposity; M77.31 Calcaneal spur, right foot; M65.9 Synovitis and tenosynovitis, unspecified; M67.471 Ganglion, right ankle and foot; R93.6 Abnormal findings on diagnostic imaging of limbs
CPT/HCPCS: 73720; A9585

== ENCOUNTER 2020-02-08 10:26 | Inpatient (IN) | payer MEDICARE, BC ==
--- NOTE | 2020-02-08 10:54 | ED ---
General Adult HPI - General Source: patient, family, RN notes reviewed Mode of arrival: wheelchair Limitations: no limitations <Robin Quintana - Last Filed: 02/08/20 11:36> <Angel Jarrett - Last Filed: 02/08/20 12:34> - General Chief complaint: Wound/Laceration Stated complaint: wound r foot heel Time Seen by Provider: 02/08/20 10:35 - History of Present Illness Initial comments: 84-year-old male presents emergency Department from wound center with chief complaint of nonhealing wound of his right heel. Patient states has been going on for several months. Patient was evaluated today and sent over for further evaluation, treatment. Patient's had prior debridements and treatments with no success. Patient states he is not diabetic. He states is having increasing pain from this. No reported fevers or chills. (Robin Quintana) - Related Data Home Medications Medication Instructions Recorded Confirmed Budesonide/Formoterol Fumarate 2 puff INHALATION RT-BID 03/30/17 02/08/20 [Symbicort 160-4.5 Mcg Inhaler] Cholecalciferol [Vitamin D3 (25 1,000 unit PO DAILY 03/30/17 02/08/20 Mcg = 1000 Iu)] Dabigatran [Pradaxa] 75 mg PO BID 03/30/17 02/08/20 Latanoprost Ophth [Xalatan 0.005%] 1 drops RIGHT EYE HS 03/30/17 02/08/20 atenoloL [Tenormin] 25 mg PO DAILY 03/30/17 02/08/20 hydroCHLOROthiazide 25 mg PO DAILY 03/30/17 02/08/20 Albuterol Inhaler [Ventolin Hfa 1 puff INHALATION RT-QID PRN 02/08/20 02/08/20 Inhaler] HYDROcodone/APAP 7.5-325MG [[place] 1 tab PO QID PRN 02/08/20 02/08/20 7.5-325] Valsartan 160 mg PO DAILY 02/08/20 02/08/20 Vitamin E 400 unit PO DAILY 02/08/20 02/08/20 Allergies Allergy/AdvReac Type Severity Reaction Status Date / Time codeine Allergy Rash/Hives Verified 02/08/20 11:50 Penicillins Allergy facial Verified 02/08/20 11:50 swelling Review of Systems ROS Other: All systems not noted in ROS Statement are negative. <Robin Quintana - Last Filed: 02/08/20 11:36> ROS Other: All systems not noted in ROS Statement are negative. <Angel Jarrett - Last Filed: 02/08/20 12:34> ROS Statement: Those systems with pertinent positive or pertinent negative responses have been documented in the HPI. Past Medical History Past Medical History: Atrial Fibrillation, Asthma, Hypertension, Osteoarthritis (OA) Additional Past Medical History / Comment(s): hx. colon polyps, GERD, glaucoma, borderline diabetes mellitus History of Any Multi-Drug Resistant Organisms: None Reported Past Surgical History: Heart Catheterization Additional Past Surgical History / Comment(s): colonoscopies Past Anesthesia/Blood Transfusion Reactions: No Reported Reaction Past Psychological History: No Psychological Hx Reported Smoking Status: Never smoker Past Alcohol Use History: Occasional Past Drug Use History: None Reported - Past Family History Sister(s) Family Medical History: Cancer Additional Family Medical History / Comment(s): colon Brother(s) Family Medical History: Cancer Additional Family Medical History / Comment(s): colon <Robin Quintana - Last Filed: 02/08/20 11:36> General Exam Limitations: no limitations General appearance: alert, in no apparent distress Head exam: Present: atraumatic, normocephalic, normal inspection Eye exam: Present: normal appearance, PERRL, EOMI. Absent: scleral icterus, conjunctival injection, periorbital swelling Neck exam: Present: normal inspection, full ROM. Absent: tenderness, meningismus, lymphadenopathy Respiratory exam: Present: normal lung sounds bilaterally. Absent: respiratory distress, wheezes, rales, rhonchi, stridor Cardiovascular Exam: Present: regular rate, normal rhythm, normal heart sounds. Absent: systolic murmur, diastolic murmur, rubs, gallop, clicks Extremities exam: Present: other (Right heel there is an open wound proximal 1 cm in diameter with purulent drainage, there is mild surrounding erythema and tenderness with palpation pedal pulses equal bilaterally) Neurological exam: Present: alert Skin exam: Present: warm, dry, intact, normal color. Absent: rash <Robin Quintana - Last Filed: 02/08/20 11:36> Course <Angel Jarrett - Last Filed: 02/08/20 12:34> Vital Signs 02/08/20 10:27 Temperature 97.8 F Pulse Rate 61 Respiratory 16 Rate Blood Pressure 157/70 O2 Sat by Pulse 99 Oximetry - Reevaluation(s) Reevaluation #1: 02/08/20 12:33 PA supervision: I proceeded a [id number] evaluation the patient he was sent for wound care by Dr. Neville. He does have a right heel wound is not healed up and is getting worse.. Is some demonstrable tunneling of the wound. He will be admitted I did discuss the case with Dr. Freitas. Patient will be seen also by vascular surgery and wound care. (Angel Jarrett) Medical Decision Making - Lab Data Result diagrams: 02/08/20 11:17 <Robin Quintana - Last Filed: 02/08/20 11:36> - Lab Data Result diagrams: 02/08/20 11:17 02/08/20 11:17 <Angel Jarrett - Last Filed: 02/08/20 12:34> - Medical Decision Making 84-year-old male sent over from wound center for foot ulceration. Patient has a deep tunneling wound. Patient will be admitted for IV antibiotics, consult to wound care and vascular. (Robin Quintana) - Lab Data Lab Results 02/08/20 02/08/20 02/08/20 Range/Units 11:17 11:17 11:17 WBC 10.5 (3.8-10.6) k/uL RBC 4.11 L (4.30-5.90) m/uL Hgb 12.9 L (13.0-17.5) gm/dL Hct 37.0 L (39.0-53.0) % MCV 90.2 (80.0-100.0) fL MCH 31.3 (25.0-35.0) pg MCHC 34.7 (31.0-37.0) g/dL RDW 11.5 (11.5-15.5) % Plt Count 295 (150-450) k/uL MPV 7.3 Neutrophils % 85 % Lymphocytes % 7 % Monocytes % 5 % Eosinophils % 2 % Basophils % 1 % Neutrophils # 9.0 H (1.3-7.7) k/uL Lymphocytes # 0.8 L (1.0-4.8) k/uL Monocytes # 0.5 (0-1.0) k/uL Eosinophils # 0.2 (0-0.7) k/uL Basophils # 0.1 (0-0.2) k/uL Sodium 124 L (137-145) mmol/L Potassium 3.9 (3.5-5.1) mmol/L Chloride 88 L (98-107) mmol/L Carbon Dioxide 29 (22-30) mmol/L Anion Gap 7 mmol/L BUN 8 L (9-20) mg/dL Creatinine 0.52 L (0.66-1.25) mg/dL Est GFR (CKD-EPI)AfAm >90 (>60 ml/min/1.73 sqM) Est GFR (CKD-EPI)NonAf >90 (>60 ml/min/1.73 sqM) Glucose 109 H (74-99) mg/dL Plasma Lactic Acid Riky 1.2 (0.7-2.0) mmol/L Calcium 9.8 (8.4-10.2) mg/dL Total Bilirubin 0.6 (0.2-1.3) mg/dL AST 26 (17-59) U/L ALT 29 (4-49) U/L Alkaline Phosphatase 70 (38-126) U/L C-Reactive Protein 59.3 H (<10.0) mg/L Total Protein 7.1 (6.3-8.2) g/dL Albumin 4.1 (3.5-5.0) g/dL Disposition <Robin Quintana - Last Filed: 02/08/20 11:36> <Angel Jarrett - Last Filed: 02/08/20 12:34> Clinical Impression: Right foot ulcer, Cellulitis of right foot Disposition: ADMITTED IP TO THIS HOSP Condition: Fair
[2020-02-08 11:24] LABS: Basophils % (A) 1 %; Eosinophils % (A) 2 %; HGB 12.9 gm/dL (13.0-17.5); Lymphocytes # (A) 0.8 k/uL (1.0-4.8); Lymphocytes % (A) 7 %; MCH 31.3 pg (25.0-35.0); MCHC 34.7 g/dL (31.0-37.0); MCV 90.2 fL (80.0-100.0); Mean Platelet Volume 7.3; Monocytes % (A) 5 %; Neutrophils % (A) 85 %; Platelet Count 295 k/uL (150-450); RBC 4.11 m/uL (4.30-5.90); RDW 11.5 % (11.5-15.5); WBC 10.5 k/uL (3.8-10.6)
[2020-02-08 11:25] LABS: Basophils # (A) 0.1 k/uL (0-0.2); Eosinophils # (A) 0.2 k/uL (0-0.7); Monocytes # (A) 0.5 k/uL (0-1.0)
[2020-02-08] MEDS ORDERED: VANCOMYCIN IV PER PHARMACY 1 EACH MISC MISCELLANE PRN (11:35)
[2020-02-08] MEDS ORDERED: HYDROcodone/APAP 7.5-325MG 1 EACH TAB PO ONE (11:37)
--- NOTE | 2020-02-08 11:37 | XR ---
EXAMINATION TYPE: XR calcaneus 2V RT DATE OF EXAM: 02/08/2020 COMPARISON: MRI 12/20/2019 HISTORY: Pain, infection TECHNIQUE: Calcaneus is examined in 2 views. FINDINGS: Vascular calcification is noted. Small plantar calcaneal heel spurs and Achilles tendon shola caneal heel spurs are present. No cortical erosion is identified. Some cortical thinning may be along the anterior inferior calcaneus on the lateral projection. IMPRESSION: 1. No suspicious abnormality to suggest acute osteomyelitis by radiographs.
[2020-02-08] MEDS ORDERED: NALOXONE 0.4 MG/ML 1 ML VIAL IV PRN (11:38)
[2020-02-08] MEDS ORDERED: ONDANSETRON 4 MG/2 ML VIAL IVP PRN (11:38)
[2020-02-08] MEDS ORDERED: HYDROmorphone 0.5 MG/0.5 ML SYRINGE IVP PRN (11:38)
[2020-02-08] MEDS ORDERED: HYDROcodone/APAP 5-325MG 1 EACH TAB PO PRN (11:38)
[2020-02-08] MEDS ORDERED: VANCOMYCIN 1,500 MG in SODIUM CHLORIDE 0.9% 250 ML IVPB STA (11:40)
[2020-02-08 11:46] LABS: ALT 29 U/L (4-49); AST 26 U/L (17-59); African American GFR (CKD) >90 (>60 ml/min/1.73 sqM); Albumin 4.1 g/dL (3.5-5.0); Alkaline Phosphatase 70 U/L (38-126); Anion Gap 7 mmol/L; Blood Urea Nitrogen 8 mg/dL (9-20); C Reactive Protein 59.3 mg/L (<10.0); Calcium 9.8 mg/dL (8.4-10.2); Carbon Dioxide 29 mmol/L (22-30); Chloride 88 mmol/L (98-107); Glucose 109 mg/dL (74-99); Non-African American GFR(CKD) >90 (>60 ml/min/1.73 sqM); Potassium 3.9 mmol/L (3.5-5.1); Sodium 124 mmol/L (137-145); Total Bilirubin 0.6 mg/dL (0.2-1.3); Total Protein 7.1 g/dL (6.3-8.2)
[2020-02-08 12:16] LABS: INR 1.2 (<1.2); Partial Thromboplastin Time 45.5 sec (22.0-30.0); Prothrombin Time 12.1 sec (9.0-12.0)
--- NOTE | 2020-02-08 12:49 | P.CONS ---
History of Present Illness - Reason for Consult Consult date: 02/08/20 - History of Present Illness this is an 84-year-old patient who follows Dr. Neville in the wound care clinic. Who was seen today in the wound care clinic with a noticeable decline to his ulceration. Patient was complaining of increased pain to the site. Tissue appeared to be necrotizing in appearance. A deep tissue wound culture was obtained. We then utilizing absorptive silver to the site. Patient was sent to the emergency room for evaluation. He will also have a consult for vascular surgery for possible I&D or surgical debridement of the right calcaneus. Patient did have an x-ray performed that did not show any ostium mellitus at this time. Patient denies diabetes Review of Systems Review Of Systems: Constitutional: No fever, no chills, no night sweats. No weight change. No weakness, fatigue or lethargy. No daytime sleepiness. Integumentary:reports wounds, no lesions. No rash or pruritus. No unusual bruising. No change in hair or nails. Past Medical History Past Medical History: Atrial Fibrillation, Asthma, Hypertension, Osteoarthritis (OA) Additional Past Medical History / Comment(s): hx. colon polyps, GERD, glaucoma, borderline diabetes mellitus History of Any Multi-Drug Resistant Organisms: None Reported Past Surgical History: Heart Catheterization Additional Past Surgical History / Comment(s): colonoscopies Past Anesthesia/Blood Transfusion Reactions: No Reported Reaction Past Psychological History: No Psychological Hx Reported Smoking Status: Never smoker Past Alcohol Use History: Occasional Past Drug Use History: None Reported - Past Family History Sister(s) Family Medical History: Cancer Additional Family Medical History / Comment(s): colon Brother(s) Family Medical History: Cancer Additional Family Medical History / Comment(s): colon Medications and Allergies Home Medications Medication Instructions Recorded Confirmed Type Budesonide/Formoterol Fumarate 2 puff INHALATION RT-BID 03/30/17 02/08/20 History [Symbicort 160-4.5 Mcg Inhaler] Cholecalciferol [Vitamin D3 (25 1,000 unit PO DAILY 03/30/17 02/08/20 History Mcg = 1000 Iu)] Dabigatran [Pradaxa] 75 mg PO BID 03/30/17 02/08/20 History Latanoprost Ophth [Xalatan 0.005%] 1 drops RIGHT EYE HS 03/30/17 02/08/20 History atenoloL [Tenormin] 25 mg PO DAILY 03/30/17 02/08/20 History hydroCHLOROthiazide 25 mg PO DAILY 03/30/17 02/08/20 History Albuterol Inhaler [Ventolin Hfa 1 puff INHALATION RT-QID PRN 02/08/20 02/08/20 History Inhaler] HYDROcodone/APAP 7.5-325MG [[place] 1 tab PO QID PRN 02/08/20 02/08/20 History 7.5-325] Valsartan 160 mg PO DAILY 02/08/20 02/08/20 History Vitamin E 400 unit PO DAILY 02/08/20 02/08/20 History Allergies Allergy/AdvReac Type Severity Reaction Status Date / Time codeine Allergy Rash/Hives Verified 02/08/20 11:50 Penicillins Allergy facial Verified 02/08/20 11:50 swelling Physical Exam Vitals: Vital Signs Temp Pulse Resp BP Pulse Ox 02/08/20 10:27 97.8 F 61 16 157/70 99 Intake and Output 02/07/20 02/08/20 02/08/20 22:59 06:59 14:59 Other: Weight 74.843 kg Original cause of wound was Gradually Appeared. The wound is currently classified as a Category/Stage III wound with etiology of Pressure Ulcer and is located on the Right,Plantar Calcaneus. The wound measures 1.9cm length x 1.7cm width x 1.5cm depth; 2.537cm^2 area and 3.805cm^3 volume. There is Fat Layer (Subcutaneous Tissue) Exposed exposed. There is no tunneling or undermining noted. There is a medium amount of serous drainage noted. The wound margin is well defined and not attached to the wound base. There is no granulation within the wound bed. There is a large (67-100%) amount of necrotic tissue within the wound bed including Adherent Slough. The periwound skin appearance exhibited: Callus, Maceration, Erythema. The periwound skin appearance did not exhibit: Crepitus, Excoriation, Induration, Rash, Scarring, Dry/Scaly, Atrophie Vee, Cyanosis, Ecchymosis, Hemosiderin Staining, Mottled, Pallor, Rubor. The surr ounding wound skin color is noted with erythema which is circumferential. Periwound temperature was noted as No Abnormality. 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 Consult for vascular surgery for possible surgical debridement. Consult for infectious disease. Patient did have a T tissue wound culture performed in the wound center today 02/08/2020. Nonweightbearing to the right calcaneus. patient will return to his wound care appointments with Dr. Neville upon discharge from the hospital. Thank you for the consultation any questions please contact the wound care c enter DNP note has been reviewed and discussed with Dr. Urrutia and the impression and plan of care has been directed as dictated.
[2020-02-08 13:13] LABS: Erythrocyte Sedimentation Rate 41 mm/hr (0-15)
--- NOTE | 2020-02-08 14:54 | P.HPIM ---
History of Present Illness H&P Date: 02/08/20 Chief Complaint: right heal wound Patient is an 84-year-old male for history of hypertension, atrial fibrillation anticoagulated with Eliquis, arthritis, GERD, and asthma who presented to the ER at the direction of Dr. Neville for worsening right lower extremity wound. He has been undergoing treatments for this wound at the wound care center for the last several months today. He has had multiple prior debridements and treatments without success. On arrival to the emergency department his vital signs were within normal limits. Laboratory analysis showed hemoglobin of 12.9, sodium 124, carbon dioxide 88, BUN 8, creatinine 0.52 and CRP 59. X-ray of the foot did not show any signs of Osteomyelitis. He was given a dose of vancomycin Rocephin. Arrangements were made for admission. Dr. Neville had asked for infectious disease and vascular surgery, and wound care consults. Patient seen and examined at bedside. Pain in his foot has been getting worse over the last few weeks. Pain is at the ulcer site and in his ankle. He developed worsening edema in his right ankle over the last 1-2 weeks. He has home care coming out who was worried about the developing edema. He has undergone debridement at the wound care center without improvement. He started seeing Dr. Neville on 01/14. He was on an 1st generation oral cephalosporin antibiotic when this first started. + drainage that is red in color, no odor increasing Decreased appetite. Unable to sleep from the pain. He is on norco for pain + constipation Review of Systems Pertinent positives and negatives as discussed in HPI, a complete review of systems was performed and all other systems are negative. Past Medical History Past Medical History: Atrial Fibrillation, Asthma, Hypertension, Osteoarthritis (OA) Additional Past Medical History / Comment(s): hx. colon polyps, GERD, glaucoma, borderline diabetes mellitus History of Any Multi-Drug Resistant Organisms: None Reported Past Surgical History: Heart Catheterization Additional Past Surgical History / Comment(s): colonoscopies, Cataracts Past Anesthesia/Blood Transfusion Reactions: No Reported Reaction Past Psychological History: No Psychological Hx Reported Smoking Status: Former smoker (Quit in 1970) Past Alcohol Use History: Occasional Past Drug Use History: None Reported Additional Drug Use History / Comment(s): Cane and knee scooter - Past Family History Sister(s) Family Medical History: Cancer Additional Family Medical History / Comment(s): colon Brother(s) Family Medical History: Cancer Additional Family Medical History / Comment(s): colon Medications and Allergies Home Medications Medication Instructions Recorded Confirmed Type Budesonide/Formoterol Fumarate 2 puff INHALATION RT-BID 03/30/17 02/08/20 History [Symbicort 160-4.5 Mcg Inhaler] Cholecalciferol [Vitamin D3 (25 1,000 unit PO DAILY 03/30/17 02/08/20 History Mcg = 1000 Iu)] Dabigatran [Pradaxa] 75 mg PO BID 03/30/17 02/08/20 History Latanoprost Ophth [Xalatan 0.005%] 1 drops RIGHT EYE HS 03/30/17 02/08/20 History atenoloL [Tenormin] 25 mg PO DAILY 03/30/17 02/08/20 History hydroCHLOROthiazide 25 mg PO DAILY 03/30/17 02/08/20 History Albuterol Inhaler [Ventolin Hfa 1 puff INHALATION RT-QID PRN 02/08/20 02/08/20 History Inhaler] HYDROcodone/APAP 7.5-325MG [[place] 1 tab PO QID PRN 02/08/20 02/08/20 History 7.5-325] Valsartan 160 mg PO DAILY 02/08/20 02/08/20 History Vitamin E 400 unit PO DAILY 02/08/20 02/08/20 History Allergies Allergy/AdvReac Type Severity Reaction Status Date / Time Penicillins Allergy facial Verified 02/08/20 11:50 swelling Physical Exam Osteopathic Statement: *. No significant issues noted on an osteopathic structural exam other than those noted in the History and Physical/Consult. Vitals: Vital Signs Temp Pulse Resp BP Pulse Ox 02/08/20 13:15 98 F 78 18 160/78 98 02/08/20 10:27 97.8 F 61 16 157/70 99 Intake and Output 02/07/20 02/08/20 02/08/20 22:59 06:59 14:59 Other: Weight 74.843 kg General: Ill appearing , no distress, appears at stated age Derm: right heal with half dollar sized ulcer with serous drainage, no odor + erythema surrounding with warmth that extends into ankle, warm, dry Head: atraumatic, normocephalic, symmetric Eyes: EOMI, no lid lag, anicteric sclera, pupils equal round reactive to light ENT: Nose and ears atraumatic, no thrush, no pharyngeal erythema Neck: No thyromegaly, no cervical lymphadenopathy, trachea midline, supple Mouth: no lip lesion, mucus membranes moist Cardiovascular: S1S2 reg, no murmur, positive posterior tibial pulse bilateral, + edema Right ankle, capillary refill less than 2 seconds Lungs: clear to ascultation bilateral, no ronchi, no rales, no wheeze, no accessory muscle use Abdominal: soft, nontender to palpation, no guarding, no appreciable organomegaly, normal bowel sounds Ext: no gross muscle atrophy, muscle strength muscle strength 5 out of 5 in all 4 extremities, no contractures Neuro: CN II-XI grossly intact, light touch intact all 4 extremities, finger to nose within normal limits, Psych: Alert, oriented, appropriate affect Results CBC & Chem 7: 02/08/20 11:17 02/08/20 11:17 Labs: Abnormal Lab Results - Last 24 Hours (Table) 02/08/20 02/08/20 02/08/20 Range/Units 11:17 11:17 11:45 RBC 4.11 L (4.30-5.90) m/uL Hgb 12.9 L (13.0-17.5) gm/dL Hct 37.0 L (39.0-53.0) % Neutrophils # 9.0 H (1.3-7.7) k/uL Lymphocytes # 0.8 L (1.0-4.8) k/uL ESR 41 H (0-15) mm/hr PT 12.1 H (9.0-12.0) sec INR 1.2 H (<1.2) APTT 45.5 H (22.0-30.0) sec Sodium 124 L (137-145) mmol/L Chloride 88 L (98-107) mmol/L BUN 8 L (9-20) mg/dL Creatinine 0.52 L (0.66-1.25) mg/dL Glucose 109 H (74-99) mg/dL C-Reactive Protein 59.3 H (<10.0) mg/L Chest x-ray: report reviewed Thrombosis Risk Factor Assmnt - DVT/VTE Prophylaxis DVT/VTE Prophylaxis: Pharmacologic Prophylaxis ordered Assessment and Plan Assessment: Right lower extremity infected ulcer with surround cellultitis - suspect PAD - ID consult: vanco - Vascular surgery consult - pain control - Wound care recs appreciated - check A1C Hyponatremia suspect due to dehydration -IV fluids - hold HCTZ - repeat sodium in 6 hours and in AM A fib, rate controlled - hold pradaza today incase surgery in AM - atenolol - follow HR Asthma - symbicort - prn albuterol The patient is admitted with an anticipated greater than 2 midnight stay for evaluation of infected ulcer right lower extremity . Surrogate decision-maker: CODE STATUS:Full DVT prophylaxis: Pradaxa Discussed with: Patient, nursing, ED physician, Dr. Lamberto Pimentel Anticipated discharge date: 4-[address]: home A total of 65 minutes was spent on the care of this complex patient more than 50% of the time was spent in counseling and care coordination.
--- NOTE | 2020-02-08 15:58 | P.GSCN ---
History of Present Illness Consult date: 02/08/20 Reason for Consult: Nonhealing ulcer on right foot Requesting physician: Robin Quintana History of present illness: This is a very pleasant 84-year-old white male who came into the emergency department sent from the outpatient wound care clinic. The patient states he developed right heel pain approximately 6 months ago where he had seen Dr. Fan and was given hydrocortisone injections. He stated he did not have much relief. He states that at some time he developed a wound on the heel of his right foot. He had his first visit with the wound care clinic on January 10, and has been following with Dr. Neville. He had a recent debridement in the outpatient setting. He denies a history of diabetes mellitus, he has atrial fibrillation and is on Pradaxa, hypertension, and asthma. He denies any fevers or chills. He states he does have pain with ambulation and that may even wake him at night on his right heel. He otherwise states prior to the heel wound, he states he was able to walk around a block or more without any pain to bilateral lower extremities. He underwent an MRI of the right foot on 12/23/2019 which showed generalized soft tissue swelling throughout. Marker indicating the area of concern along the plantar aspect of the heel. There is thinning of the underlying calcaneal fat pad with diminished fat signal. Consider calcaneal fat pad atrophy, heel pad syndrome. There is a small to moderate sized heel spur, no specific findings of plantar fasciitis by MRI. Moderate tenosynovitis along the peroneal tendons. Some reactive bony changes at the lateral talar process and calcaneal angle of Gissane. A 2.1 x 0.6 cm ganglion cyst arising from the sinus tarsi extending dorsally with an additional small 1.1 cm ganglion cyst posteriorly at the ankle may be arising from adjacent FDL tendon sheath. Signal replacement within the sinus tarsi can be seen with subtalar joint sprain or si nus tarsi syndrome. Possible chronic tear of the ATFL and either low-grade or chronic sprain of the CFL. X-ray of the right calcaneus shows no suspicious abnormality to suggest acute osteomyelitis by radiographs. Review of Systems 14 point review of systems was completed, all pertinent positives and negatives as stated in the HPI. Past Medical History Past Medical History: Atrial Fibrillation, Asthma, Hypertension, Osteoarthritis (OA) Additional Past Medical History / Comment(s): hx. colon polyps, GERD, glaucoma, borderline diabetes mellitus History of Any Multi-Drug Resistant Organisms: None Reported Past Surgical History: Heart Catheterization Additional Past Surgical History / Comment(s): colonoscopies, Cataracts Past Anesthesia/Blood Transfusion Reactions: No Reported Reaction Past Psychological History: No Psychological Hx Reported Smoking Status: Former smoker (Quit in 1970) Past Alcohol Use History: Occasional Past Drug Use History: None Reported Additional Drug Use History / Comment(s): Cane and knee scooter - Past Family History Sister(s) Family Medical History: Cancer Additional Family Medical History / Comment(s): colon Brother(s) Family Medical History: Cancer Additional Family Medical History / Comment(s): colon Medications and Allergies Home Medications Medication Instructions Recorded Confirmed Type Budesonide/Formoterol Fumarate 2 puff INHALATION RT-BID 03/30/17 02/08/20 History [Symbicort 160-4.5 Mcg Inhaler] Cholecalciferol [Vitamin D3 (25 1,000 unit PO DAILY 03/30/17 02/08/20 History Mcg = 1000 Iu)] Dabigatran [Pradaxa] 75 mg PO BID 03/30/17 02/08/20 History Latanoprost Ophth [Xalatan 0.005%] 1 drops RIGHT EYE HS 03/30/17 02/08/20 History atenoloL [Tenormin] 25 mg PO DAILY 03/30/17 02/08/20 History hydroCHLOROthiazide 25 mg PO DAILY 03/30/17 02/08/20 History Albuterol Inhaler [Ventolin Hfa 1 puff INHALATION RT-QID PRN 02/08/20 02/08/20 History Inhaler] HYDROcodone/APAP 7.5-325MG [[place] 1 tab PO QID PRN 02/08/20 02/08/20 History 7.5-325] Valsartan 160 mg PO DAILY 02/08/20 02/08/20 History Vitamin E 400 unit PO DAILY 02/08/20 02/08/20 History Allergies Allergy/AdvReac Type Severity Reaction Status Date / Time Penicillins Allergy facial Verified 02/08/20 11:50 swelling Surgical - Exam Vital Signs Temp Pulse Resp BP Pulse Ox 97.8 F 61 16 157/70 99 02/08/20 10:27 02/08/20 10:27 02/08/20 10:27 02/08/20 10:27 02/08/20 10:27 General appearance: The patient is alert, oriented, in no acute distress. HET: Head is normocephalic and atraumatic. Neck: Supple without lymphadenopathy. Trachea midline. Heart: Regular rate and rhythm Lungs: Clear to auscultation. Extremities: Normal skin color and turgor. No cyanosis, rash, ulceration, clubbing, or edema. Lateral palpable radial pulses. Positive bilateral posterior tibialis and dorsalis pedis Doppler signals. Good capillary refill. Right plantar calcaneus ulcer which measures 1.9 cm length x 1.7 m width x 1.5 cm depth. The there is adherent slough, a yellow, brown drainage. With surrounding erythema. Neurological: No focal deficits. Strength and sensation are grossly intact. Results MRI of the right foot on 12/23/2019 which showed generalized soft tissue swelling throughout. Marker indicating the area of concern along the plantar aspect of the heel. There is thinning of the underlying calcaneal fat pad with diminished fat signal. Consider calcaneal fat pad atrophy, heel pad syndrome. There is a small to moderate sized heel spur, no specific findings of plantar fasciitis by MRI. Moderate tenosynovitis along the peroneal tendons. Some reactive bony changes at the lateral talar process and calcaneal angle of Gissane. A 2.1 x 0.6 cm ganglion cyst arising from the sinus tarsi extending dorsally with an additional small 1.1 cm ganglion cyst posteriorly at the ankle may be arising from adjacent FDL tendon sheath. Signal replacement within the sinus tarsi can be seen with subtalar joint sprain or sinus tarsi syndrome. Possible chronic tear of the ATFL and either low-grade or chronic sprain of the CFL. X-ray of the right calcaneus shows no suspicious abnormality to suggest acute osteomyelitis by radiographs. - Labs 02/08/20 11:17 02/08/20 11:17 Abnormal Lab Results - Last 24 Hours (Table) 02/08/20 02/08/20 02/08/20 Range/Units 11:17 11:17 11:45 RBC 4.11 L (4.30-5.90) m/uL Hgb 12.9 L (13.0-17.5) gm/dL Hct 37.0 L (39.0-53.0) % Neutrophils # 9.0 H (1.3-7.7) k/uL Lymphocytes # 0.8 L (1.0-4.8) k/uL ESR 41 H (0-15) mm/hr PT 12.1 H (9.0-12.0) sec INR 1.2 H (<1.2) APTT 45.5 H (22.0-30.0) sec Sodium 124 L (137-145) mmol/L Chloride 88 L (98-107) mmol/L BUN 8 L (9-20) mg/dL Creatinine 0.52 L (0.66-1.25) mg/dL Glucose 109 H (74-99) mg/dL C-Reactive Protein 59.3 H (<10.0) mg/L Diabetes panel 02/08/20 Range/Units 11:17 Sodium 124 L (137-145) mmol/L Potassium 3.9 (3.5-5.1) mmol/L Chloride 88 L (98-107) mmol/L Carbon Dioxide 29 (22-30) mmol/L BUN 8 L (9-20) mg/dL Creatinine 0.52 L (0.66-1.25) mg/dL Glucose 109 H (74-99) mg/dL Calcium 9.8 (8.4-10.2) mg/dL AST 26 (17-59) U/L ALT 29 (4-49) U/L Alkaline Phosphatase 70 (38-126) U/L Total Protein 7.1 (6.3-8.2) g/dL Albumin 4.1 (3.5-5.0) g/dL Calcium panel 02/08/20 Range/Units 11:17 Calcium 9.8 (8.4-10.2) mg/dL Albumin 4.1 (3.5-5.0) g/dL Pituitary panel 02/08/20 Range/Units 11:17 Sodium 124 L (137-145) mmol/L Potassium 3.9 (3.5-5.1) mmol/L Chloride 88 L (98-107) mmol/L Carbon Dioxide 29 (22-30) mmol/L BUN 8 L (9-20) mg/dL Creatinine 0.52 L (0.66-1.25) mg/dL Glucose 109 H (74-99) mg/dL Calcium 9.8 (8.4-10.2) mg/dL Adrenal panel 02/08/20 Range/Units 11:17 Sodium 124 L (137-145) mmol/L Potassium 3.9 (3.5-5.1) mmol/L Chloride 88 L (98-107) mmol/L Carbon Dioxide 29 (22-30) mmol/L BUN 8 L (9-20) mg/dL Creatinine 0.52 L (0.66-1.25) mg/dL Glucose 109 H (74-99) mg/dL Calcium 9.8 (8.4-10.2) mg/dL Total Bilirubin 0.6 (0.2-1.3) mg/dL AST 26 (17-59) U/L ALT 29 (4-49) U/L Alkaline Phosphatase 70 (38-126) U/L Total Protein 7.1 (6.3-8.2) g/dL Albumin 4.1 (3.5-5.0) g/dL Assessment and Plan Assessment: 1. Nonhealing right calcaneus ulcer 2. Right foot pain 3. History of chronic atrial fibrillation on Pradaxa Plan: 1. Continue with vancomycin 2. Infectious diseases on consult, appreciate recommendations for IV antibiotics 3. Continue to hold Pradaxa 4. Will order arterial ultrasound of bilateral lower extremities 5. Nothing by mouth after midnight, for possible surgical debridement 6. Follow recommendations from wound care for dressing changes 7. Further recommendations to follow regarding debridement of the right calcaneus ulcer 8. Repeat CBC, BMP tomorrow Thank you for this consultation and allowing us to take part in the plan of care of your patient during his hospital stay. The impression and plan of care has been dictated as directed. Dr. Stapleton I performed a history and examination of this patient, discussed the same with the dictator. I agree with the dictator's note ,documented as a scribe. Any additional findings or plans will be noted.
[2020-02-08] MEDS ORDERED: bisacodyL 5 MG TABLET.DR PO PRN (16:09)
[2020-02-08] MEDS ORDERED: MELATONIN 3 MG TABLET PO PRN (16:09)
[2020-02-08] MEDS ORDERED: HYDROcodone/APAP 7.5-325MG 1 EACH TAB PO PRN (16:11)
[2020-02-08] MEDS ORDERED: ALBUTEROL NEBULIZED 2.5 MG/3 ML INHALATION PRN (16:11)
[2020-02-08] MEDS ORDERED: CALCIUM CARBONATE 500 MG CHEWABLE PO PRN (16:13)
[2020-02-08] MEDS: SYMBICORT 160-4.5 MCG INHALER INHALATION SCH (18:57)
[2020-02-08] MEDS ORDERED: MELATONIN 5 MG TABLET PO PRN (21:00)
[2020-02-08] MEDS: SODIUM CHLORIDE 0.9% 1,000 ML IV SCH (22:05)
[2020-02-08] MEDS: LATANOPROST 0.005% OPHTH DROPS 2.5 ML BTL RIGHT EYE SCH (22:22)
[2020-02-08 23:56] LABS: Glucose,Whole Blood 118 mg/dL (75-99)
[2020-02-09] MEDS ORDERED: VANCOMYCIN 1,250 MG in SODIUM CHLORIDE 0.9% 250 ML IVPB SCH ×2
[2020-02-09] MEDS: SODIUM CHLORIDE 0.9% 1,000 ML IV SCH ×2 (04:37→13:56)
[2020-02-09] MEDS: VANCOMYCIN 1,250 MG in SODIUM CHLORIDE 0.9% 250 ML IVPB SCH ×2 (05:59→18:14)
--- NOTE | 2020-02-09 06:22 | CONS ---
CONSULTATION DATE OF SERVICE: 02/08/2020 REASON FOR CONSULTATION: Right heel infected wound and cellulitis. HISTORY OF PRESENT ILLNESS: The patient is an 84-year-old male who apparently has been dealing with a nonhealing wound on the plantar aspect of the right heel for the last few weeks. The patient has been followed by Dr. Mcdonnell and [facility]. Apparently the patient has been treated with local wound care and debridement and packing of the wound and has received a course of oral Keflex on 01/15/2020. The patient was evaluated in the wound care center today and noticed to have worsening of his right heel wound. The patient was sent to the ER for admission, IV antibiotic and possible further debridement of the wound. The patient denies having any fever or any chills. Denies any chest pain or shortness of breath or cough. No abdominal pain. Has been complaining of pain to the right heel wound especially when getting debrided or packed. At that point, his pain is more of a pressure-like and could be 5-6/10 with no radiation. The patient did have minimal drainage from it, but denies any foul smelling. On presentation to the hospital, the patient has been afebrile. The patient did have a normal white count. Sed rate was 41. The patient did have x-rays of the right calcaneus that did not show any bony abnormality suggestive of osteomyelitis. Vancomycin was added and Infectious Disease was consulted for further management of antibiotic therapy. REVIEW OF SYMPTOMS: Positive points have been mentioned in HPI. Rest of systems are negative. PAST MEDICAL HISTORY: Atrial fibrillation, hypertension, osteoarthritis, and asthma, borderline diabetes mellitus, , colonoscopy. SOCIAL HISTORY: No history of smoking. Rarely drinks. No drug use. FAMILY HISTORY: Brother and sister with a history of colon cancer. ALLERGIES: PENICILLIN . MEDICATIONS: The patient is currently on Tylenol, [place], Dulcolax, Symbicort, Tums, Dilaudid, Xalatan eyedrops, melatonin, Narcan, Diovan, vancomycin with Pharmacy to dose. PHYSICAL EXAMINATION: Blood pressure 164/65 with a pulse of 70, temperature 97.7. He is 98% on room air. General description is an elderly male in the chair in no distress. No tachypnea or accessory muscle of respiration use. HEENT: Shows pallor, no scleral icterus. Oral mucous membrane is dry, no pharyngeal erythema or thrush. Neck trachea central no thyromegaly. Lungs unlabored breathing, clear to auscultation. No wheeze or crackle. Heart S1, S2. Regular rate and rhythm. Abdomen is soft, no tenderness. No guarding or rigidity. Extremities with no edema of the feet. Examination of the right heel did have a wound on the plantar aspect with minimal drainage. Some surrounding swelling and redness. No foul smelling. NEUROLOGIC: The patient is awake, alert, oriented time three. Mood and affect normal. LABS: Hemoglobin is 12.1, white count 10.5, BUN of 8, creatinine 0.52. CRP is 59.3. Local wound culture pending. X-rays have been negative for any bony changes. DIAGNOSTIC IMPRESSION: 1. Patient with right heel infected pressure ulcer with surrounding cellulitis, failing outpatient oral Keflex therapy and will need to cover for the gram-positive underlying pathogen. 2. Patient with penicillin allergy that will limit the number of antibiotics safe to use. PLAN: 1. Vancomycin with pharmacy to dose target of 15 while watching his kidney function and vancomycin trough closely. 2. Await surgical debridement and possible deep culture. 3. Local wound care with Aquacel silver packing of the wound. 4. We will follow on clinical condition and culture to further adjust medication if needed. Thank you for this consultation. Will follow this patient along with you. MMODL / IJN: [id number] /
[2020-02-09 06:40] LABS: Basophils % (A) 0 %; Eosinophils # (A) 0.1 k/uL (0-0.7); Eosinophils % (A) 2 %; HCT 34.3 % (39.0-53.0); HGB 11.8 gm/dL (13.0-17.5); Lymphocytes # (A) 0.7 k/uL (1.0-4.8); Lymphocytes % (A) 8 %; MCH 31.1 pg (25.0-35.0); MCHC 34.3 g/dL (31.0-37.0); MCV 90.8 fL (80.0-100.0); Mean Platelet Volume 7.5; Monocytes # (A) 0.4 k/uL (0-1.0); Monocytes % (A) 5 %; Neutrophils # (A) 7.2 k/uL (1.3-7.7); Neutrophils % (A) 84 %; Platelet Count 259 k/uL (150-450); RBC 3.78 m/uL (4.30-5.90); RDW 11.5 % (11.5-15.5); WBC 8.6 k/uL (3.8-10.6)
[2020-02-09] MEDS: SYMBICORT 160-4.5 MCG INHALER INHALATION SCH ×2 (07:27→20:31)
[2020-02-09] MEDS: atenoloL 25 MG TAB PO SCH (09:09)
[2020-02-09] MEDS: VALSARTAN 160 MG TAB PO SCH (09:10)
[2020-02-09] MEDS: VITAMIN E (DL,TOCOPHERYL ACET) 400 UNIT CAP PO SCH (09:55)
[2020-02-09] MEDS: CHOLECALCIFEROL 1,000 UNIT TAB PO SCH (09:55)
[2020-02-09 10:03] LABS: Anion Gap 6.7 mmol/L (4.00-12.00); C Reactive Protein 5.6 mg/dL (0.0-0.8); Calcium 9.4 mg/dL (8.7-10.3); Carbon Dioxide 29.3 mmol/L (21.6-31.8); Non-African American GFR(CKD) 92.3 (60.0-200.0)
[2020-02-09] MEDS ORDERED: IV FLUID CONTINUATION 1,000 ML IV ONE ×2 (10:59)
[2020-02-09] MEDS ORDERED: KETAMINE 10 MG/ML 20 ML VIAL ONE (11:01)
[2020-02-09] MEDS ORDERED: PROPOFOL 10 MG/ML 20 ML VIAL IV ONE (11:01)
[2020-02-09] MEDS ORDERED: fentaNYL (PF) 50 MCG/ML 2 ML AMP ONE (11:01)
[2020-02-09] MEDS ORDERED: MIDAZOLAM 2 MG/2 ML VIAL ONE (11:01)
[2020-02-09] MEDS ORDERED: ONDANSETRON 4 MG/2 ML VIAL IVP ONE (11:41)
[2020-02-09] MEDS ORDERED: DEXAMETHASONE SOD PHOSPHATE 4 MG/ML 1 ML VIAL IVP ONE (11:43)
--- NOTE | 2020-02-09 11:54 | P.OP ---
Date of Procedure: 02/09/20 Preoperative Diagnosis: Nonhealing ulceration right heel/plantar surface. 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 Wound measurements were that of 3 cm of undermining at the 12 o'clock position. Wound depth was 2 cm and length of the wound was 8 cm. Procedure(s) Performed: Sharp debridement of skin, subcutaneous tissue, fat and tendon. Bone biopsy of the calcaneus. Implants: None. Anesthesia: GETA (Via LMA.) [employer]ating Range Tender #1: Mynor Brown Pathology: other (Bone biopsy.) Condition: stable Disposition: no change Indications for Procedure: Patient is an 84-year-old male who had presented multiple months ago to the wound care center with a nonhealing ulceration of the right heel. This a been treated in the wound care center however failed to progress. Patient was subsequently admitted. Physical examination revealed an unstageable wound of the right heel which measured approximately 2 cm in greatest diameter. Gauze of the persistence of the wound and unstageable nature of the wound patient is now offered to do Lisbet. Description of Procedure: Issues brought the upper and placed in supine position Mr. general inhalational anesthesia delivered by the department anesthesiology. Patient's current IV antibiotic therapy regimen was continued. The patient's right foot was sterilely prepped and draped in usual manner. The wound measured 2 cm across. Utilizing sharp dissection necrotic tissue was divided down to the level of the calcaneus bone. Undermining measured 3 cm at the 12 o'clock position was identified. This undermined tract was then opened completely with a skin incision. Cultures of the area were obtained. As much necrotic tissue as possible was removed. A bone biopsy was then performed with the rongeur of the calcaneus bone. The wound was then packed with iodoform gauze and dressed. Patient tolerated the procedure well and was taken to the recovery area satisfactory and stable condition. It is suspected that the patient has osteomyelitis of the calcaneus bone. I taken the liberty of ordering a 3 phase bone scan to rule out the possibility of osteomyelitis. We will continue with IV antibiotic therapy.
[2020-02-09] MEDS ORDERED: HYDROmorphone 0.5 MG/0.5 ML SYRINGE IVP ONE ×2 (11:57→12:30)
[2020-02-09] MEDS ORDERED: SODIUM CHLORIDE 0.9% 1,000 ML IV ONE (12:15)
[2020-02-09] MEDS ORDERED: LABETALOL SYRINGE 5 MG/ML IVP ONE ×2 (12:20→12:25)
--- NOTE | 2020-02-09 13:04 | P.PN ---
Subjective Progress Note Date: 02/09/20 Patient is doing well today. He was scheduled for OR later today when I saw her this morning. He does not have any complaints. Objective - Vital Signs Vital signs: Vital Signs Temp 98 F 02/09/20 11:40 Pulse 66 02/09/20 12:40 Resp 17 02/09/20 12:40 BP 160/77 02/09/20 12:40 Pulse Ox 98 02/09/20 12:40 Intake & Output 02/08/20 02/09/20 02/09/20 18:59 06:59 18:59 Intake Total 1670 650 Output Total 800 5 Balance 870 645 Weight 74.843 kg Intake: IV 650 Intake, IV Titration 1550 Amount Sodium Chloride 0.9% 1, 1300 000 ml @ 130 mls/hr IV . Q7H42M NAYLA Rx#:[id number] Vancomycin 1,250 mg In 250 Sodium Chloride 0.9% 250 ml @ 125 mls/hr IVPB Q12H NAYLA Rx#:[id number] Oral 120 Output: Urine 800 Estimated Blood Loss 5 Other: Voiding Method Toilet Urinal # Bowel Movements 1 - Exam General: The patient is awake and alert, in no distress Eye: there is normal conjunctiva bilaterally. Neck: The neck is supple, there is no JVD. Cardiovascular: Normal S1-S2, no S3-S4, no murmurs. Respiratory: Lungs clear to auscultation bilaterally Gastrointestinal: Abdomen is soft, nontender Musculoskeletal: There is no pedal edema. Right foot wrapped with Henry/dry dressing Neurological:. Speech is normal. Skin: Skin is warm and dry - Labs CBC & Chem 7: 02/09/20 06:14 02/09/20 06:14 Labs: Abnormal Lab Results - Last 24 Hours (Table) 02/08/20 02/08/20 02/09/20 Range/Units 11:17 23:55 06:14 RBC (4.30-5.90) m/uL Hgb (13.0-17.5) gm/dL Hct (39.0-53.0) % Lymphocytes # (1.0-4.8) k/uL ESR 41 H (0-15) mm/hr Sodium 131 L (135-145) mmol/L Chloride 95 L (96-109) mmol/L Glucose 119 H (70-110) mg/dL POC Glucose (mg/dL) 118 H (75-99) mg/dL C-Reactive Protein 5.6 H (0.0-0.8) mg/dL 02/09/20 Range/Units 06:14 RBC 3.78 L (4.30-5.90) m/uL Hgb 11.8 L (13.0-17.5) gm/dL Hct 34.3 L (39.0-53.0) % Lymphocytes # 0.7 L (1.0-4.8) k/uL ESR (0-15) mm/hr Sodium (135-145) mmol/L Chloride (96-109) mmol/L Glucose (70-110) mg/dL POC Glucose (mg/dL) (75-99) mg/dL C-Reactive Protein (0.0-0.8) mg/dL Assessment and Plan Assessment: Patient is an 84-year-old male for history of hypertension, atrial fibrillation anticoagulated with Eliquis, arthritis, GERD, and asthma who presented to the ER at the direction of Dr. Neville for worsening right lower extremity wound. He has been undergoing treatments for this wound at the wound care center for the last several months today. He has had multiple prior debridements and treatments without success. Assessment: Right lower extremity infected ulcer with surround cellultitis - suspect PAD, awaiting arterial duplex - ID consult: vanco - Vascular surgery consult, status post debridement with bone biopsy on 02/08 - pain control - Wound care recs appreciated - check A1C Hyponatremia suspect due to dehydration -Improved with IV fluid - Discontinue HCTZ Essential hypertension -Blood pressure not well controlled today probably secondary to pain we will continue to monitor closely A fib, rate controlled - pradaxa on hold right now - atenolol Asthma - symbicort - prn albuterol Surrogate decision-maker: CODE STATUS:Full DVT prophylaxis: With subcu heparin right now may resume anticoagulation tomorrow Discussed with: Patient, nursing, Anticipated discharge date: 4-[address]: home
[2020-02-09 13:20] VITALS: BMI 25.0
[2020-02-09 21:02] LABS: Glucose,Whole Blood 201 mg/dL (75-99)
[2020-02-09 21:08] LABS: Hemoglobin A1C 6.1 % (4.0-6.0)
[2020-02-09] MEDS: HEPARIN SODIUM,PORCINE 5,000 UNIT/ML 1 ML VIAL SQ SCH (22:05)
[2020-02-09] MEDS: LATANOPROST 0.005% OPHTH DROPS 2.5 ML BTL RIGHT EYE SCH (22:10)
[2020-02-09] MEDS: ACETAMINOPHEN TAB 325 MG TAB PO PRN (22:13)
--- NOTE | 2020-02-09 23:05 | PN ---
PROGRESS NOTE DATE OF SERVICE: 02/09/2020 REASON FOR FOLLOW UP: Right hand pressure ulcer with concern for underlying osteomyelitis. INTERVAL HISTORY: The patient is currently afebrile. The patient did have debridement of his right hand wound with concern for possible . He did have deep cultures and done. Patient tolerated the procedure. Pain is currently controlled. Denies any chest pain, shortness of breath or cough. No abdominal pain. No diarrhea. PHYSICAL EXAMINATION: Blood pressure 152/72 with a pulse of 53, temperature 97.8. He is 99% on room air. General description is an elderly male lying in bed in no distress. Respiratory system: Unlabored breathing, clear to auscultation anteriorly. HEART: S1, S2. Regular rate and rhythm. Abdomen soft, no tenderness. Right heel is currently dressed up. No obvious drainage on the dressing. LABS: Hemoglobin 11.8, white count 8.6, BUN of 9, creatinine 0.7. DIAGNOSTIC IMPRESSION AND PLAN: Patient with right heel pressure ulcer, nonhealing wound, concern for underlying osteomyelitis status post debridement. Cultures are currently pending. Patient is on vancomycin adjusting antibiotic further based on the culture report. Continue supportive care. MMODL / IJN: [id number] /
[2020-02-10] MEDS ORDERED: VANCOMYCIN TROUGH DUE 1 EACH MISC MISCELLANE ONE (05:00)
[2020-02-10] MEDS: VANCOMYCIN 1,250 MG in SODIUM CHLORIDE 0.9% 250 ML IVPB SCH (06:28)
[2020-02-10 06:31] LABS: Basophils % (A) 0 %; Eosinophils % (A) 0 %; HCT 34.1 % (39.0-53.0); HGB 11.7 gm/dL (13.0-17.5); Lymphocytes # (A) 1.1 k/uL (1.0-4.8); Lymphocytes % (A) 12 %; MCH 31.6 pg (25.0-35.0); MCHC 34.5 g/dL (31.0-37.0); MCV 91.7 fL (80.0-100.0); Mean Platelet Volume 7.7; Monocytes # (A) 0.4 k/uL (0-1.0); Monocytes % (A) 4 %; Neutrophils # (A) 7.5 k/uL (1.3-7.7); Neutrophils % (A) 83 %; Platelet Count 269 k/uL (150-450); RBC 3.72 m/uL (4.30-5.90); RDW 11.6 % (11.5-15.5); WBC 9.1 k/uL (3.8-10.6)
[2020-02-10] MEDS: SYMBICORT 160-4.5 MCG INHALER INHALATION SCH ×2 (08:32→20:16)
[2020-02-10] MEDS: HEPARIN SODIUM,PORCINE 5,000 UNIT/ML 1 ML VIAL SQ SCH (09:45)
[2020-02-10] MEDS: atenoloL 25 MG TAB PO SCH (09:45)
[2020-02-10] MEDS: CHOLECALCIFEROL 1,000 UNIT TAB PO SCH (09:45)
[2020-02-10] MEDS: VALSARTAN 160 MG TAB PO SCH (09:46)
[2020-02-10] MEDS: VITAMIN E (DL,TOCOPHERYL ACET) 400 UNIT CAP PO SCH (09:46)
[2020-02-10 10:15] LABS: Anion Gap 6.7 mmol/L (4.00-12.00); BUN/Creat Ratio 21.67 Ratio (12.00-20.00); Calcium 9.3 mg/dL (8.7-10.3); Carbon Dioxide 27.3 mmol/L (21.6-31.8); Non-African American GFR(CKD) 92.3 (60.0-200.0); Potassium 4.1 mmol/L (3.5-5.5)
--- NOTE | 2020-02-10 12:03 | P.PN ---
Subjective Progress Note Date: 02/10/20 Patient is doing well today. He does not have any complaints. He has been using Tylenol for pain control with good relief. No acute events overnight reported by nursing staff. Objective - Vital Signs Vital signs: Vital Signs Temp 97.8 F 02/10/20 08:55 Pulse 64 02/10/20 08:55 Resp 18 02/10/20 08:55 BP 169/65 02/10/20 08:55 Pulse Ox 93 L 02/10/20 08:55 Intake & Output 02/09/20 02/10/20 02/10/20 18:59 06:59 18:59 Intake Total 650 490 Output Total 5 Balance 645 490 Weight 74.843 kg Intake: IV 650 Intake, IV Titration 490 Amount Sodium Chloride 0.9% 1, 240 000 ml @ 130 mls/hr IV . Q7H42M NAYLA Rx#:[id number] Vancomycin 1,250 mg In 250 Sodium Chloride 0.9% 250 ml @ 125 mls/hr IVPB Q12H NAYLA Rx#:[id number] Output: Estimated Blood Loss 5 Other: Voiding Method Toilet Urinal # Voids 1 # Bowel Movements 1 1 - Exam General: The patient is awake and alert, in no distress Eye: there is normal conjunctiva bilaterally. Neck: The neck is supple, there is no JVD. Cardiovascular: Normal S1-S2, no S3-S4, no murmurs. Respiratory: Lungs clear to auscultation bilaterally Gastrointestinal: Abdomen is soft, nontender Musculoskeletal: There is no pedal edema. Right foot wrapped with Henry/dry dressing Neurological:. Speech is normal. Skin: Skin is warm and dry - Labs CBC & Chem 7: 02/10/20 05:53 02/10/20 05:53 Labs: Abnormal Lab Results - Last 24 Hours (Table) 02/09/20 02/09/20 02/10/20 Range/Units 06:14 21:01 05:53 RBC 3.72 L (4.30-5.90) m/uL Hgb 11.7 L (13.0-17.5) gm/dL Hct 34.1 L (39.0-53.0) % Sodium (135-145) mmol/L BUN/Creatinine Ratio (12.00-20.00) Ratio Glucose (70-110) mg/dL POC Glucose (mg/dL) 201 H (75-99) mg/dL Hemoglobin A1c 6.1 H (4.0-6.0) % 02/10/20 Range/Units 05:53 RBC (4.30-5.90) m/uL Hgb (13.0-17.5) gm/dL Hct (39.0-53.0) % Sodium 131 L (135-145) mmol/L BUN/Creatinine Ratio 21.67 H (12.00-20.00) Ratio Glucose 125 H (70-110) mg/dL POC Glucose (mg/dL) (75-99) mg/dL Hemoglobin A1c (4.0-6.0) % Microbiology - Last 24 Hours (Table) 02/09/20 11:19 Gram Stain - Preliminary Foot - Right Wound Culture - Preliminary Presumptive Staph aureus 02/09/20 11:19 Anaerobic Culture - Preliminary Heel - Right 02/08/20 11:17 Blood Culture - Preliminary Blood No Growth after 24 hours Assessment and Plan Assessment: Patient is an 84-year-old male for history of hypertension, atrial fibrillation anticoagulated with Eliquis, arthritis, GERD, and asthma who presented to the ER at the direction of Dr. Neville for worsening right lower extremity wound. He has been undergoing treatments for this wound at the wound care center for the last several months today. He has had multiple prior debridements and treatments without success. Assessment: Right lower extremity infected ulcer with surround cellultitis - ID consult: rios, wound culture growing presumptive MRSA - Vascular surgery consult, status post debridement with bone biopsy on 02/08 - Awaiting bone scan result - suspect PAD, awaiting arterial duplex report - pain control - Wound care recs appreciated Hyponatremia suspect due to dehydration -Improved with IV fluid - Discontinue HCTZ Essential hypertension -Blood pressure not well controlled today probably secondary to pain we will continue to monitor closely A fib, rate controlled - pradaxa on hold right now - atenolol Prediabetes -A1c 6.1. Counseled regarding lifestyle modification Asthma - symbicort - prn albuterol Surrogate decision-maker: CODE STATUS:Full DVT prophylaxis: pradaxa Discussed with: Patient, nursing, Anticipated discharge date: Pending clinical course Anticipated discharge place: home
--- NOTE | 2020-02-10 14:16 | P.PN ---
Subjective Progress Note Date: 02/10/20 Álvaro is evaluated today in first postoperative day. He voices no complaints. I reviewed with the patient the findings at the surgery. I await the final interpretation of the 3-phase bone scan. Further recommendations are to be forthcoming based on results of bone scan etc. Objective - Vital Signs Vital signs: Vital Signs Temp 97.8 F 02/10/20 08:55 Pulse 64 02/10/20 08:55 Resp 18 02/10/20 08:55 BP 169/65 02/10/20 08:55 Pulse Ox 93 L 02/10/20 08:55 Intake & Output 02/09/20 02/10/20 02/10/20 18:59 06:59 18:59 Intake Total 650 490 Output Total 5 Balance 645 490 Weight 74.843 kg Intake: IV 650 Intake, IV Titration 490 Amount Sodium Chloride 0.9% 1, 240 000 ml @ 130 mls/hr IV . Q7H42M NAYLA Rx#:[id number] Vancomycin 1,250 mg In 250 Sodium Chloride 0.9% 250 ml @ 125 mls/hr IVPB Q12H NAYLA Rx#:[id number] Output: Estimated Blood Loss 5 Other: Voiding Method Toilet Urinal # Voids 1 # Bowel Movements 1 1 - Labs CBC & Chem 7: 02/10/20 05:53 02/10/20 05:53 Labs: Abnormal Lab Results - Last 24 Hours (Table) 02/09/20 02/09/20 02/10/20 Range/Units 06:14 21:01 05:53 RBC 3.72 L (4.30-5.90) m/uL Hgb 11.7 L (13.0-17.5) gm/dL Hct 34.1 L (39.0-53.0) % Sodium (135-145) mmol/L BUN/Creatinine Ratio (12.00-20.00) Ratio Glucose (70-110) mg/dL POC Glucose (mg/dL) 201 H (75-99) mg/dL Hemoglobin A1c 6.1 H (4.0-6.0) % 02/10/20 Range/Units 05:53 RBC (4.30-5.90) m/uL Hgb (13.0-17.5) gm/dL Hct (39.0-53.0) % Sodium 131 L (135-145) mmol/L BUN/Creatinine Ratio 21.67 H (12.00-20.00) Ratio Glucose 125 H (70-110) mg/dL POC Glucose (mg/dL) (75-99) mg/dL Hemoglobin A1c (4.0-6.0) % Microbiology - Last 24 Hours (Table) 02/08/20 11:17 Blood Culture - Preliminary Blood No Growth after 48 hours 02/09/20 11:19 Gram Stain - Preliminary Foot - Right Wound Culture - Preliminary Presumptive Staph aureus 02/09/20 11:19 Anaerobic Culture - Preliminary Heel - Right
--- NOTE | 2020-02-10 15:25 | NM ---
EXAMINATION TYPE: NM bone 3 phase DATE OF EXAM: 02/10/2020 COMPARISON: NONE HISTORY: Possible osteomyelitis of the right calcaneus Triple phase bone scintigraphy was performed following the injection of 26.5 mCi Tc 99m MDP. Immedia te images and 5 hours post injection images acquired. FINDINGS: The blood flow exam shows hyperemia of the right foot compared to the left. Immediate images also shiraz w persistent hyperemia of the right foot compared to the left. Delayed images show increased uptake in the posterior plantar aspect of the right calcaneus. There is also increased uptake in the talus and posterior distal tibia of the right ankle on the delayed imag es. IMPRESSION: Increased uptake on the delayed images in multiple areas of the right hindfoot. I do not have overall a significant suspicion for osteomyelitis. Increased uptake in the hindfoot consistent with the hype remia. This could relate to cellulitis. IMPRESSION: No scintigraphic evidence of osseous metastatic disease.
[2020-02-10] MEDS: VANCOMYCIN 1,500 MG in SODIUM CHLORIDE 0.9% 250 ML IVPB SCH (17:12)
[2020-02-10] MEDS: LATANOPROST 0.005% OPHTH DROPS 2.5 ML BTL RIGHT EYE SCH (21:19)
[2020-02-10] MEDS: ACETAMINOPHEN TAB 325 MG TAB PO PRN (21:19)
[2020-02-10] MEDS: DABIGATRAN 75 MG CAP PO SCH (21:20)
--- NOTE | 2020-02-11 02:38 | PN ---
PROGRESS NOTE DATE OF SERVICE: 02/10/2020 REASON FOR FOLLOWUP: Right heel wound with secondary cellulitis. INTERVAL HISTORY: The patient is currently afebrile. The patient is breathing comfortably. Denies having any chest pain or cough. No abdominal pain or pain to the right heel area. PHYSICAL EXAMINATION: Blood pressure 152/74 with a pulse of 55, temperature 98. He is 99% on room air. General description is an elderly male up in the chair in no distress. RESPIRATORY SYSTEM: Unlabored breathing, clear to auscultation anteriorly. HEART: S1, S2. Regular rate and rhythm. ABDOMEN: Soft, no tenderness. Right heel is currently dressed up. No obvious drainage on the dressing. LABS: Hemoglobin 11.7, white count 9.1. BUN of 13, creatinine 0.6. Vancomycin trough 10.3. Wound culture presumptive Staphylococcus aureus. DIAGNOSTIC IMPRESSION AND PLAN: Patient with right heel nonhealing wound with secondary cellulitis with concern for osteo on time of surgical drainage. Bone scan came back negative. Currently covered with vancomycin. Will await for the final ID and sensitivity to determine discharge antibiotics. Continue with supportive care. MMODL / IJN: [id number] /
[2020-02-11] MEDS: VANCOMYCIN 1,500 MG in SODIUM CHLORIDE 0.9% 250 ML IVPB SCH ×2 (04:22→16:53)
[2020-02-11] MEDS: ACETAMINOPHEN TAB 325 MG TAB PO PRN ×3 (05:54→21:27)
[2020-02-11 07:20] LABS: Basophils # (A) 0.1 k/uL (0-0.2); Basophils % (A) 1 %; Eosinophils # (A) 0.2 k/uL (0-0.7); Eosinophils % (A) 2 %; HCT 32.9 % (39.0-53.0); HGB 11.1 gm/dL (13.0-17.5); Lymphocytes # (A) 0.8 k/uL (1.0-4.8); Lymphocytes % (A) 10 %; MCH 31.3 pg (25.0-35.0); MCHC 33.8 g/dL (31.0-37.0); MCV 92.7 fL (80.0-100.0); Mean Platelet Volume 7.5; Monocytes # (A) 0.4 k/uL (0-1.0); Monocytes % (A) 5 %; Neutrophils # (A) 6.3 k/uL (1.3-7.7); Neutrophils % (A) 82 %; Platelet Count 228 k/uL (150-450); RBC 3.55 m/uL (4.30-5.90); RDW 11.7 % (11.5-15.5); WBC 7.8 k/uL (3.8-10.6)
[2020-02-11] MEDS: VITAMIN E (DL,TOCOPHERYL ACET) 400 UNIT CAP PO SCH (07:45)
[2020-02-11] MEDS: VALSARTAN 160 MG TAB PO SCH (07:46)
[2020-02-11] MEDS: DABIGATRAN 75 MG CAP PO SCH ×2 (07:46→21:28)
[2020-02-11] MEDS: atenoloL 25 MG TAB PO SCH (07:46)
[2020-02-11] MEDS: CHOLECALCIFEROL 1,000 UNIT TAB PO SCH (07:46)
[2020-02-11] MEDS: SYMBICORT 160-4.5 MCG INHALER INHALATION SCH ×2 (09:26→19:07)
--- NOTE | 2020-02-11 09:26 | P.PN ---
Subjective Progress Note Date: 02/11/20 Principal diagnosis: Wound, status post incision, drainage and debridement. Patient is evaluated today postop day #2. He voices no complaints. The wound packing was removed. The wound is clean without evidence of debridable tissue. The bone biopsy results are not yet finalized. Cultures of the wound demonstrates staph although sensitivities have not yet been finalized. The patient has a palpable dorsalis pedis pulse and arterial Doppler study demonstrates no evidence of significant arterial occlusive disease. From a surgical standpoint no further surgical intervention is necessary. Continue with antibiotics and local wound care. Objective - Vital Signs Vital signs: Vital Signs Temp 97.7 F 02/11/20 07:53 Pulse 64 02/11/20 07:53 Resp 16 02/11/20 07:53 BP 153/77 02/11/20 07:53 Pulse Ox 99 02/11/20 07:53 Intake & Output 02/10/20 02/11/20 02/11/20 18:59 06:59 18:59 Output Total 625 Balance -625 Output: Urine 625 Other: Voiding Method Toilet Urinal # Voids 1 1 # Bowel Movements 1 - Labs CBC & Chem 7: 02/11/20 06:44 02/10/20 05:53 Labs: Abnormal Lab Results - Last 24 Hours (Table) 02/10/20 02/11/20 Range/Units 05:53 06:44 RBC 3.55 L (4.30-5.90) m/uL Hgb 11.1 L (13.0-17.5) gm/dL Hct 32.9 L (39.0-53.0) % Lymphocytes # 0.8 L (1.0-4.8) k/uL Sodium 131 L (135-145) mmol/L BUN/Creatinine Ratio 21.67 H (12.00-20.00) Ratio Glucose 125 H (70-110) mg/dL Microbiology - Last 24 Hours (Table) 02/08/20 11:17 Blood Culture - Preliminary Blood No Growth after 48 hours 02/09/20 11:19 Gram Stain - Preliminary Foot - Right Wound Culture - Preliminary Presumptive Staph aureus
[2020-02-11 11:43] LABS: Anion Gap 6.1 mmol/L (4.00-12.00); BUN/Creat Ratio 23.33 Ratio (12.00-20.00); Calcium 9.2 mg/dL (8.7-10.3); Carbon Dioxide 27.9 mmol/L (21.6-31.8); Non-African American GFR(CKD) 92.3 (60.0-200.0); Potassium 4.3 mmol/L (3.5-5.5)
--- NOTE | 2020-02-11 14:34 | P.PN ---
Subjective Progress Note Date: 02/11/20 Patient is doing well today. He was in the bathroom brushing his teeth. No acute events overnight reported by nursing staff. Objective - Vital Signs Vital signs: Vital Signs Temp 97.7 F 02/11/20 07:53 Pulse 64 02/11/20 07:53 Resp 16 02/11/20 07:53 BP 153/77 02/11/20 07:53 Pulse Ox 99 02/11/20 07:53 Intake & Output 02/10/20 02/11/20 02/11/20 18:59 06:59 18:59 Intake Total 240 Output Total 625 Balance -625 240 Intake: Oral 240 Output: Urine 625 Other: Voiding Method Toilet Urinal # Voids 1 1 # Bowel Movements 1 - Exam General: The patient is awake and alert, in no distress Eye: there is normal conjunctiva bilaterally. Neck: The neck is supple, there is no JVD. Cardiovascular: Normal S1-S2, no S3-S4, no murmurs. Respiratory: Lungs clear to auscultation bilaterally Gastrointestinal: Abdomen is soft, nontender Musculoskeletal: There is no pedal edema. Right foot wrapped with Henry/dry dressing Neurological:. Speech is normal. Skin: Skin is warm and dry - Labs CBC & Chem 7: 02/11/20 06:44 02/11/20 06:44 Labs: Abnormal Lab Results - Last 24 Hours (Table) 02/11/20 02/11/20 Range/Units 06:44 06:44 RBC 3.55 L (4.30-5.90) m/uL Hgb 11.1 L (13.0-17.5) gm/dL Hct 32.9 L (39.0-53.0) % Lymphocytes # 0.8 L (1.0-4.8) k/uL Sodium 132 L (135-145) mmol/L BUN/Creatinine Ratio 23.33 H (12.00-20.00) Ratio Glucose 113 H (70-110) mg/dL Microbiology - Last 24 Hours (Table) 02/09/20 11:19 Anaerobic Culture - Preliminary Heel - Right 02/08/20 11:17 Blood Culture - Preliminary Blood No Growth after 72 hours 02/09/20 11:19 Gram Stain - Final Foot - Right Wound Culture - Final Staphylococcus aureus Assessment and Plan Assessment: Patient is an 84-year-old male for history of hypertension, atrial fibrillation anticoagulated with Eliquis, arthritis, GERD, and asthma who presented to the ER at the direction of Dr. Neville for worsening right lower extremity wound. He has been undergoing treatments for this wound at the wound care center for the last several months today. He has had multiple prior debridements and treatments without success. Assessment: Right lower extremity infected ulcer with surround cellultitis - ID consult: rios, wound culture growing presumptive MRSA awaiting final culture - Vascular surgery consult, status post debridement with bone biopsy on 02/08 - Bone scan showed no evidence of osteomyelitis - No evidence of peripheral vascular occlusive disease - pain control - Wound care Hyponatremia suspect due to dehydration -Improved with IV fluid - Discontinue HCTZ Essential hypertension -Blood pressure not well controlled today probably secondary to pain we will continue to monitor closely A fib, rate controlled - pradaxa on hold right now - atenolol Prediabetes -A1c 6.1. Counseled regarding lifestyle modification Asthma - symbicort - prn albuterol Awaiting cultures to finalize and the recommendation from infectious disease for antibiotic treatment. Anticipate discharge home tomorrow. Surrogate decision-maker: CODE STATUS:Full DVT prophylaxis: pradaxa Discussed with: Patient, nursing, Anticipated discharge date: Pending clinical course Anticipated discharge place: home
[2020-02-11] MEDS: LATANOPROST 0.005% OPHTH DROPS 2.5 ML BTL RIGHT EYE SCH (21:28)
--- NOTE | 2020-02-11 23:08 | PN ---
PROGRESS NOTE DATE OF SERVICE: 02/11/2020 REASON FOR FOLLOWUP: Right heel infected ulcer. INTERVAL HISTORY: The patient is currently afebrile, has been breathing comfortably. Patient denies having any chest pain or shortness of breath or cough or any abdominal pain or any worsening pain to the right heel area. PHYSICAL EXAMINATION: Blood pressure 168/81 with a pulse of 72. Temperature 97.7. He is 98% on room air. General description: The patient is an elderly male up in the chair in no distress. Respiratory system: Unlabored breathing, clear to auscultation anteriorly. Heart S1, S2. Regular rate and rhythm. Abdomen: Soft, no tenderness. Right heel is currently dressed up. LABS: Hemoglobin 11.1, white count 7.8. BUN of 14, creatinine 0.7. DIAGNOSTIC IMPRESSION AND PLAN: Patient with right heel infected pressure ulcer status post debridement. Culture with MSSA. The patient did have PENICILLIN ALLERGY however has taken Keflex without any problem. Antibiotic will be switched over to cefazolin 2 grams q.8 with no evidence of any osteomyelitis on the bone scan. We either wait for the bone biopsy to see the need for IV antibiotic versus switching to oral Keflex 500 mg q.6 hours for 2 weeks and close outpatient followup. MMODL / IJN: [id number] /
[2020-02-12] MEDS: ACETAMINOPHEN TAB 325 MG TAB PO PRN ×2 (03:12→12:00)
[2020-02-12] MEDS ORDERED: VANCOMYCIN TROUGH DUE 1 EACH MISC MISCELLANE ONE (04:00)
[2020-02-12 04:13] LABS: Basophils # (A) 0.1 k/uL (0-0.2); Basophils % (A) 1 %; Eosinophils # (A) 0.3 k/uL (0-0.7); Eosinophils % (A) 3 %; Lymphocytes # (A) 0.8 k/uL (1.0-4.8); Lymphocytes % (A) 9 %; MCH 31.7 pg (25.0-35.0); MCHC 34.5 g/dL (31.0-37.0); MCV 91.9 fL (80.0-100.0); Mean Platelet Volume 7.7; Monocytes # (A) 0.4 k/uL (0-1.0); Monocytes % (A) 5 %; Neutrophils # (A) 7.3 k/uL (1.3-7.7); Neutrophils % (A) 82 %; Platelet Count 231 k/uL (150-450); RBC 3.48 m/uL (4.30-5.90); RDW 11.7 % (11.5-15.5); WBC 8.9 k/uL (3.8-10.6)
[2020-02-12] MEDS: SYMBICORT 160-4.5 MCG INHALER INHALATION SCH (07:22)
[2020-02-12 07:58] VITALS: BP 174/62; PULSE 81; RESP 18; TEMP 97.4
[2020-02-12] MEDS: CHOLECALCIFEROL 1,000 UNIT TAB PO SCH (08:34)
[2020-02-12] MEDS: atenoloL 25 MG TAB PO SCH (08:34)
[2020-02-12] MEDS: VALSARTAN 160 MG TAB PO SCH (08:34)
[2020-02-12] MEDS: DABIGATRAN 75 MG CAP PO SCH (08:34)
[2020-02-12] MEDS: VITAMIN E (DL,TOCOPHERYL ACET) 400 UNIT CAP PO SCH (08:35)
[2020-02-12] MEDS ORDERED: amLODIPine 5 MG TAB PO STA (09:44)
--- NOTE | 2020-02-12 09:44 | P.DS ---
Providers Date of admission: 02/08/20 11:37 Expected date of discharge: 02/12/20 Attending physician: Edith Hussein DO Consults: 02/08/20 11:38 Consult Physician Urgent Consulting Provider: Mynor Brown Consult Reason/Comments: Right foot ulceration Do you want consulting provider notified?: Yes 02/08/20 12:40 Consult Physician Routine Consulting Provider: Rigo Orantes Consult Reason/Comments: infected nonpressure right calcaneus wound Do you want consulting provider notified?: Yes Primary care physician: [facility] Course: Patient is an 84-year-old male for history of hypertension, atrial fibrillation anticoagulated with Eliquis, arthritis, GERD, and asthma who presented to the ER at the direction of Dr. Neville for worsening right lower extremity wound. He has been undergoing treatments for this wound at the wound care center for the last several months today. He has had multiple prior debridements and treatments without success. Assessment: Right lower extremity infected ulcer with surround cellultitis - ID consult: rios, wound culture growing MSSA. Bone biopsy culture still pending. Patient will be treated with oral Keflex for 14 days. He will follow up with ID in the office next week regarding bone biopsy culture and if antibiotic adjustment is needed. - Vascular surgery consult, status post debridement with bone biopsy on 02/08 - Bone scan showed no evidence of osteomyelitis - No evidence of peripheral vascular occlusive disease - Wound care Hyponatremia suspect due to dehydration -Improved with IV fluid - Discontinue HCTZ Essential hypertension -Blood pressure not well controlled. Hydrochlorothiazide discontinued secondary to hyponatremia. Norvasc 5 mg daily added to his regimen. A fib, rate controlled - pradaxa - atenolol Prediabetes -A1c 6.1. Counseled regarding lifestyle modification Asthma - symbicort - prn albuterol Patient Condition at Discharge: Fair Plan - Discharge Summary Discharge Rx Participant: No New Discharge Prescriptions: New Cephalexin [Keflex] 500 mg PO Q6HR 14 Days #52 cap amLODIPine [Norvasc] 5 mg PO DAILY #30 tab Continue Latanoprost Ophth [Xalatan 0.005%] 1 drops RIGHT EYE HS Dabigatran [Pradaxa] 75 mg PO BID Cholecalciferol [Vitamin D3 (25 Mcg = 1000 Iu)] 1,000 unit PO DAILY Budesonide/Formoterol Fumarate [Symbicort 160-4.5 Mcg Inhaler] 2 puff INHALATION RT-BID atenoloL [Tenormin] 25 mg PO DAILY Valsartan 160 mg PO DAILY Albuterol Inhaler [Ventolin Hfa Inhaler] 1 puff INHALATION RT-QID PRN PRN Reason: Shortness Of Breath HYDROcodone/APAP 7.5-325MG [[place] 7.5-325] 1 tab PO QID PRN PRN Reason: Pain Vitamin E 400 unit PO DAILY Discontinued hydroCHLOROthiazide 25 mg PO DAILY Discharge Medication List Budesonide/Formoterol Fumarate [Symbicort 160-4.5 Mcg Inhaler] 2 puff INHALATION RT-BID 03/30/17 [History] Cholecalciferol [Vitamin D3 (25 Mcg = 1000 Iu)] 1,000 unit PO DAILY 03/30/17 [History] Dabigatran [Pradaxa] 75 mg PO BID 03/30/17 [History] Latanoprost Ophth [Xalatan 0.005%] 1 drops RIGHT EYE HS 03/30/17 [History] atenoloL [Tenormin] 25 mg PO DAILY 03/30/17 [History] Albuterol Inhaler [Ventolin Hfa Inhaler] 1 puff INHALATION RT-QID PRN 02/08/20 [History] HYDROcodone/APAP 7.5-325MG [[place] 7.5-325] 1 tab PO QID PRN 02/08/20 [History] Valsartan 160 mg PO DAILY 02/08/20 [History] Vitamin E 400 unit PO DAILY 02/08/20 [History] Cephalexin [Keflex] 500 mg PO Q6HR 14 Days #52 cap 02/12/20 [Rx] amLODIPine [Norvasc] 5 mg PO DAILY #30 tab 02/12/20 [Rx] Follow up Appointment(s)/Referral(s): [facility], [NON-STAFF] - Kolby Juarez MD [Primary Care Provider] - 1-2 days Rigo Orantes MD [STAFF PHYSICIAN] - 1 Week Discharge Disposition: HOME SELF-CARE
[2020-02-12 10:08] LABS: Anion Gap 9.1 mmol/L (4.00-12.00); BUN/Creat Ratio 26.67 Ratio (12.00-20.00); Calcium 9.1 mg/dL (8.7-10.3); Carbon Dioxide 26.9 mmol/L (21.6-31.8); Non-African American GFR(CKD) 92.3 (60.0-200.0); Potassium 4.1 mmol/L (3.5-5.5)
--- NOTE | 2020-02-12 13:16 | PN ---
PROGRESS NOTE DATE OF SERVICE: 02/12/2020 REASON FOR FOLLOWUP: Right heel pressure ulcer with underlying cellulitis. INTERVAL HISTORY: The patient is currently afebrile, has been breathing comfortably. Overall pain and discomfort are controlled. Denies having any chest pain, shortness of breath or cough. No abdominal pain or diarrhea. PHYSICAL EXAMINATION: Blood pressure is 174/62 with a pulse of 81, temperature of 97.4. He is 100% on room air. General description is an elderly male up in the chair in no distress. RESPIRATORY SYSTEM: Unlabored breathing, clear to auscultation anteriorly. HEART: S1, S2. Regular rate and rhythm. ABDOMEN: Soft, no tenderness. Right heel wound is deep with some soft slough tissue, minimal surrounding cellulitis. No foul smelling drainage. LABS: Hemoglobin 11, white count 8.9 with a BUN of 16, creatinine 0.6. Blood culture was DIAGNOSTIC IMPRESSION AND PLAN: Patient with a right heel infected wound, culture positive for MSSA. The patient has been given the option of IV antibiotic cefazolin for therapeutic of oral Keflex. However, the patient is refusing his continued local wound care with wound care team. Antibiotic in the form of oral Keflex and close outpatient followup discussed with the admitting physician. CASSIA / KIRAN: [id number] /
--- NOTE | 2020-02-15 23:02 | CDI ---
Documentation Clarification Form Date: 02/16/20 From: Justin Gerardo Phone: If you have a question about this query, please contact [facility] at [phone] between 8am and 5pm. Admit Date: 02/08/2020 11:37:00 AM Patient Name: Jose Larkin Visit Number: [id number] Discharge Date: 02/12/2020 02:15:00 PM ATTENTION: The Clinical Documentation Specialists (CDI) and [facility] Coding Staff appreciate your assistance in clarifying documentation. Please respond to the clarification below the line at the bottom and electronically sign. The CDI & [facility] Coding staff will review the response and follow-up if needed. Please note: Queries are made part of the Legal Health Record. If you have any questions, please contact the author of this message via ITS. Dr. Jv Loving MD., The patient presented with the Right lower extremity infected ulcer with surround cellultitis. History/Risk Factors: Atrial Fibrillation, Asthma, Hypertension, Osteoarthritis Radiology findings: Increased uptake on the delayed images in multiple areas of the right hindfoot. I do not have overall a significant suspicion for osteomyelitis.Increased uptake in the hindfoot consistent with the hyperemia.This could relate to cellulitis. Vital Signs: 02/08/20 13:15 98 F 78 18 160/78 98 Other Clinical Indicators:Right lower extremity infected ulcer with surround cellultitis - ID consult: rios, wound culture growing MSSA.Bone biopsy culture stillpending Treatment: Debridement. apply absorptive silver, saline moist gauze, dry gauze rolled gauze and secure with paper tape.Consult for vascular surgery for possible surgical debridement.Consult for infectious disease. 02/[address]Vernon Urrutia DO mentioned "Necrotizing fasciitis" In your professional opinion, can you please clarify Necrotizing fasciitis Presence along with Right lower extremity infected ulcer? YES NO Other, please specify Unable to determine NO [facility]
--- NOTE | 2020-02-21 10:04 | P.ARTDOP ---
Arterial Doppler LOWER EXTREMITY ARTERIAL DOPPLER: DATE OF SERVICE: 02/08/2020 Reason for study: Right heel ulcer. Doppler waveforms: Somewhat blunted but multiphasic throughout. Toe waveforms are significantly blunted Pulse volume recording: []. Pressure gradients: Only at the foot level. Ankle-brachial indices: Greater than 1 bilaterally. Toe brachial indices: 0.28 on the right, 0.43 on the left Impression: Ankle pressures are normal, however, this may be related to calcific wall disease and mostly distal disease. The blunting throughout and multiple basis that he may be a sign of poor cardiac function. Perfusion distally is compromised to at least a moderate degree. Recommend vascular specialty consult..
== END 2020-02-12 14:15 | disposition home or self-care (01) | DRG 580 ==
LOC: EC 10:26 → 5NMEDONC 11:37
PROVIDERS: ADMIT Internal Medicine; ATTEND Internal Medicine
PROC: 0QBL0ZX Excision of Right Tarsal, Open Approach, Diagnostic (ICD-10-PCS; principal; 2020-02-09 10:30)
PROC: 0QBL0ZZ Excision of Right Tarsal, Open Approach (ICD-10-PCS; principal; 2020-02-09 10:30)
DX: L97.519 Non-pressure chronic ulcer of other part of right foot with unspecified severity (principal); L03.115 Cellulitis of right lower limb; E87.1 Hypo-osmolality and hyponatremia; I48.20 Chronic atrial fibrillation, unspecified; I10 Essential (primary) hypertension; I48.91 Unspecified atrial fibrillation; R73.03 Prediabetes; J45.909 Unspecified asthma, uncomplicated; K21.9 Gastro-esophageal reflux disease without esophagitis; B95.61 Methicillin susceptible Staphylococcus aureus infection as the cause of diseases classified elsewhere; E86.0 Dehydration; K59.00 Constipation, unspecified; H40.9 Unspecified glaucoma; M19.90 Unspecified osteoarthritis, unspecified site; Z88.5 Allergy status to narcotic agent; Z88.0 Allergy status to penicillin; Z79.51 Long term (current) use of inhaled steroids; Z79.01 Long term (current) use of anticoagulants; Z79.899 Other long term (current) drug therapy; Z87.19 Personal history of other diseases of the digestive system; Z80.0 Family history of malignant neoplasm of digestive organs; Z98.890 Other specified postprocedural states; Z98.49 Cataract extraction status, unspecified eye; Z87.891 Personal history of nicotine dependence
CPT/HCPCS: 36415; 78315; 80048; 80053; 80202; 83036; 83605; 85025; 85610; 85652; 85730; 86140; 87040; 87070; 87075; 87077; 87186; 87205; 88304; 88311; 93922; 94640; 96365; 96367; 99285

== ENCOUNTER 2020-02-15 06:32 | Emergency (ER) | payer MEDICARE, BC ==
--- NOTE | 2020-02-15 06:45 | ED ---
SOB HPI - General Stated Complaint: SOB - History of Present Illness Initial Comments: 84-year-old male history of atrial fibrillation, hypertension, dyslipidemia, right foot wound presents emergency department today for chief complaint of shortness of breath. Patient states throughout the evening he felt as though he was not breathing correctly. Patient states he felt slightly short of breath. He denies palpitations chest pain pain with deep inspiration. He denies calf elizabeth n. Patient states he has a slight cough, no fevers. He states he is on antibiotics for his foot and has had some diarrhea on and off for the past day. patient denies chest pressure, jaw, arm or back pain. Patient denies hemoptysis. Denies history of DVT/PE. Pt states he is on a blood thinner. Patient denies nausea, vomiting, abdominal pain. Patietn states that the dyspnea is intermittent and wake him up from his sleep. No known history of sleep apnea Denies history of heart failure. patient states since EMS arrived he has felt better.Patient currently denies dyspnea. - Related Data Home Medications Medication Instructions Recorded Confirmed Budesonide/Formoterol Fumarate 2 puff INHALATION RT-BID 03/30/17 02/08/20 [Symbicort 160-4.5 Mcg Inhaler] Cholecalciferol [Vitamin D3 (25 1,000 unit PO DAILY 03/30/17 02/08/20 Mcg = 1000 Iu)] Dabigatran [Pradaxa] 75 mg PO BID 03/30/17 02/08/20 Latanoprost Ophth [Xalatan 0.005%] 1 drops RIGHT EYE HS 03/30/17 02/08/20 atenoloL [Tenormin] 25 mg PO DAILY 03/30/17 02/08/20 Albuterol Inhaler [Ventolin Hfa 1 puff INHALATION RT-QID PRN 02/08/20 02/08/20 Inhaler] HYDROcodone/APAP 7.5-325MG [[place] 1 tab PO QID PRN 02/08/20 02/08/20 7.5-325] Valsartan 160 mg PO DAILY 02/08/20 02/08/20 Vitamin E 400 unit PO DAILY 02/08/20 02/08/20 Previous Rx's Medication Instructions Recorded Cephalexin [Keflex] 500 mg PO Q6HR 14 Days #52 cap 02/12/20 amLODIPine [Norvasc] 5 mg PO DAILY #30 tab 02/12/20 Allergies Allergy/AdvReac Type Severity Reaction Status Date / Time Penicillins Allergy facial Verified 02/08/20 11:50 swelling Review of Systems ROS Statement: Those systems with pertinent positive or pertinent negative responses have been documented in the HPI. ROS Other: All systems not noted in ROS Statement are negative. Past Medical History Past Medical History: Atrial Fibrillation, Asthma, Hypertension, Osteoarthritis (OA) Additional Past Medical History / Comment(s): hx. colon polyps, GERD, glaucoma, borderline diabetes mellitus History of Any Multi-Drug Resistant Organisms: None Reported Past Surgical History: Heart Catheterization Additional Past Surgical History / Comment(s): colonoscopies, Cataracts Past Anesthesia/Blood Transfusion Reactions: No Reported Reaction Past Psychological History: No Psychological Hx Reported Smoking Status: Former smoker (Quit in 1970) Past Alcohol Use History: Occasional Past Drug Use History: None Reported Additional Drug Use History / Comment(s): Cane and knee scooter - Past Family History Sister(s) Family Medical History: Cancer Additional Family Medical History / Comment(s): colon Brother(s) Family Medical History: Cancer Additional Family Medical History / Comment(s): colon General Exam - General Exam Comments Initial Comments: General: The patient is awake and alert, in no distress Eye: +3 mm pupils are equal, round and reactive to light, extra-ocular mo vements are intact. No nystagmus. There is normal conjunctiva bilaterally. No signs of icterus. Ears, nose, mouth and throat: There are moist mucous membranes and no oral lesions. Neck: The neck is supple, there is no tenderness or JVD. Cardiovascular: There is a regular rate and rhythm. No murmur, rub or gallop is appreciated. Respiratory: Lungs are clear to auscultation, respirations are non-labored, breath sounds are equal. No wheezes, stridor, rales, or rhonchi. Musculoskeletal: Normal ROM, no tenderness. Strength 5/5. Sensation intact. Radial and DP pulses equal bilaterally 2+. Neurological: A&O x 3. CN II-XII intact grossly, There are no obvious motor or sensory deficits. Coordination appears grossly intact. Speech is normal. Skin: Skin is warm and dry and no rashes or lesions are noted. No LE edema, no calf pain. Psychiatric: Cooperative, appropriate mood & affect, normal judgment. Course Vital Signs 02/15/20 02/15/20 06:35 07:23 Temperature 97.9 F Pulse Rate 83 75 Respiratory 20 16 Rate Blood Pressure 173/83 O2 Sat by Pulse 99 98 Oximetry Medical Decision Making - Medical Decision Making Dimer (-). Troponin (-). CXR no critical findings. Vital stable. saturating 98- 100% on room air. no complaints of dyspnea. from the hx provided it sounds most consistent wtih possible sleep apnea, ot states he has episodes of waking up with dyspneic episodes/atching his breath. he states now that he is awake he doesnt feel that way.. patient denies cp. patient at this time appears well nontoxic. case discussed wtih Dr Ervin who is agreeable to discharge. - Lab Data Result diagrams: 02/15/20 07:01 02/15/20 07:01 Lab Results 02/15/20 02/15/20 02/15/20 Range/Units 07:01 07:01 07:01 WBC 6.3 (3.8-10.6) k/uL RBC 3.66 L (4.30-5.90) m/uL Hgb 11.4 L (13.0-17.5) gm/dL Hct 33.1 L (39.0-53.0) % MCV 90.5 (80.0-100.0) fL MCH 31.3 (25.0-35.0) pg MCHC 34.6 (31.0-37.0) g/dL RDW 11.9 (11.5-15.5) % Plt Count 237 (150-450) k/uL MPV 7.9 Neutrophils % 74 % Lymphocytes % 14 % Monocytes % 5 % Eosinophils % 4 % Basophils % 1 % Neutrophils # 4.7 (1.3-7.7) k/uL Lymphocytes # 0.9 L (1.0-4.8) k/uL Monocytes # 0.3 (0-1.0) k/uL Eosinophils # 0.3 (0-0.7) k/uL Basophils # 0.1 (0-0.2) k/uL PT 11.8 (9.0-12.0) sec INR 1.2 H (<1.2) APTT 30.3 H (22.0-30.0) sec D-Dimer (<0.60) mg/L FEU Sodium 131 L (137-145) mmol/L Potassium 4.0 (3.5-5.1) mmol/L Chloride 99 (98-107) mmol/L Carbon Dioxide 25 (22-30) mmol/L Anion Gap 7 mmol/L BUN 8 L (9-20) mg/dL Creatinine 0.55 L (0.66-1.25) mg/dL Est GFR (CKD-EPI)AfAm >90 (>60 ml/min/1.73 sqM) Est GFR (CKD-EPI)NonAf >90 (>60 ml/min/1.73 sqM) Glucose 121 H (74-99) mg/dL Plasma Lactic Acid Riky (0.7-2.0) mmol/L Calcium 9.4 (8.4-10.2) mg/dL Magnesium 1.7 (1.6-2.3) mg/dL Total Bilirubin 0.7 (0.2-1.3) mg/dL AST 28 (17-59) U/L ALT 38 (4-49) U/L Alkaline Phosphatase 62 (38-126) U/L Troponin I (0.000-0.034) ng/mL NT-Pro-B Natriuret Pep pg/mL Total Protein 6.3 (6.3-8.2) g/dL Albumin 3.6 (3.5-5.0) g/dL Coronavirus (PCR) (Not Detectd) 02/15/20 02/15/20 02/15/20 Range/Units 07:01 07:01 07:01 WBC (3.8-10.6) k/uL RBC (4.30-5.90) m/uL Hgb (13.0-17.5) gm/dL Hct (39.0-53.0) % MCV (80.0-100.0) fL MCH (25.0-35.0) pg MCHC (31.0-37.0) g/dL RDW (11.5-15.5) % Plt Count (150-450) k/uL MPV Neutrophils % % Lymphocytes % % Monocytes % % Eosinophils % % Basophils % % Neutrophils # (1.3-7.7) k/uL Lymphocytes # (1.0-4.8) k/uL Monocytes # (0-1.0) k/uL Eosinophils # (0-0.7) k/uL Basophils # (0-0.2) k/uL PT (9.0-12.0) sec INR (<1.2) APTT (22.0-30.0) sec D-Dimer (<0.60) mg/L FEU Sodium (137-145) mmol/L Potassium (3.5-5.1) mmol/L Chloride (98-107) mmol/L Carbon Dioxide (22-30) mmol/L Anion Gap mmol/L BUN (9-20) mg/dL Creatinine (0.66-1.25) mg/dL Est GFR (CKD-EPI)AfAm (>60 ml/min/1.73 sqM) Est GFR (CKD-EPI)NonAf (>60 ml/min/1.73 sqM) Glucose (74-99) mg/dL Plasma Lactic Acid Riky 1.1 (0.7-2.0) mmol/L Calcium (8.4-10.2) mg/dL Magnesium (1.6-2.3) mg/dL Total Bilirubin (0.2-1.3) mg/dL AST (17-59) U/L ALT (4-49) U/L Alkaline Phosphatase (38-126) U/L Troponin I <0.012 (0.000-0.034) ng/mL NT-Pro-B Natriuret Pep 955 pg/mL Total Protein (6.3-8.2) g/dL Albumin (3.5-5.0) g/dL Coronavirus (PCR) (Not Detectd) 02/15/20 02/15/20 Range/Units 07:01 07:01 WBC (3.8-10.6) k/uL RBC (4.30-5.90) m/uL Hgb (13.0-17.5) gm/dL Hct (39.0-53.0) % MCV (80.0-100.0) fL MCH (25.0-35.0) pg MCHC (31.0-37.0) g/dL RDW (11.5-15.5) % Plt Count (150-450) k/uL MPV Neutrophils % % Lymphocytes % % Monocytes % % Eosinophils % % Basophils % % Neutrophils # (1.3-7.7) k/uL Lymphocytes # (1.0-4.8) k/uL Monocytes # (0-1.0) k/uL Eosinophils # (0-0.7) k/uL Basophils # (0-0.2) k/uL PT (9.0-12.0) sec INR (<1.2) APTT (22.0-30.0) sec D-Dimer 0.41 (<0.60) mg/L FEU Sodium (137-145) mmol/L Potassium (3.5-5.1) mmol/L Chloride (98-107) mmol/L Carbon Dioxide (22-30) mmol/L Anion Gap mmol/L BUN (9-20) mg/dL Creatinine (0.66-1.25) mg/dL Est GFR (CKD-EPI)AfAm (>60 ml/min/1.73 sqM) Est GFR (CKD-EPI)NonAf (>60 ml/min/1.73 sqM) Glucose (74-99) mg/dL Plasma Lactic Acid Riky (0.7-2.0) mmol/L Calcium (8.4-10.2) mg/dL Magnesium (1.6-2.3) mg/dL Total Bilirubin (0.2-1.3) mg/dL AST (17-59) U/L ALT (4-49) U/L Alkaline Phosphatase (38-126) U/L Troponin I (0.000-0.034) ng/mL NT-Pro-B Natriuret Pep pg/mL Total Protein (6.3-8.2) g/dL Albumin (3.5-5.0) g/dL Coronavirus (PCR) Not Detected (Not Detectd) Disposition Clinical Impression: Dyspnea, Sleep disturbance Disposition: HOME SELF-CARE Condition: Good Instructions (If sedation given, give patient instructions): Sleep Apnea (DC), Dyspnea (ED) Additional Instructions: Please use medication as discussed. Please follow-up with family doctor in the next 2 days, recommend outpatient sleep study. Please return to emergency room if the symptoms increase or worsen or for any other concerns. Is patient prescribed a controlled substance at d/c from ED?: No Referrals: Kolby Juarez MD [Primary Care Provider] - 1-2 days Time of Disposition: 08:34
[2020-02-15 07:18] LABS: Basophils # (A) 0.1 k/uL (0-0.2); Basophils % (A) 1 %; Eosinophils # (A) 0.3 k/uL (0-0.7); Eosinophils % (A) 4 %; HCT 33.1 % (39.0-53.0); HGB 11.4 gm/dL (13.0-17.5); Lymphocytes # (A) 0.9 k/uL (1.0-4.8); Lymphocytes % (A) 14 %; MCH 31.3 pg (25.0-35.0); MCHC 34.6 g/dL (31.0-37.0); MCV 90.5 fL (80.0-100.0); Mean Platelet Volume 7.9; Monocytes # (A) 0.3 k/uL (0-1.0); Monocytes % (A) 5 %; Neutrophils # (A) 4.7 k/uL (1.3-7.7); Neutrophils % (A) 74 %; Platelet Count 237 k/uL (150-450); RBC 3.66 m/uL (4.30-5.90); RDW 11.9 % (11.5-15.5); WBC 6.3 k/uL (3.8-10.6)
[2020-02-15 07:26] LABS: INR 1.2 (<1.2); Partial Thromboplastin Time 30.3 sec (22.0-30.0); Prothrombin Time 11.8 sec (9.0-12.0)
[2020-02-15 07:27] LABS: ALT 38 U/L (4-49); AST 28 U/L (17-59); African American GFR (CKD) >90 (>60 ml/min/1.73 sqM); Albumin 3.6 g/dL (3.5-5.0); Alkaline Phosphatase 62 U/L (38-126); Anion Gap 7 mmol/L; Blood Urea Nitrogen 8 mg/dL (9-20); Calcium 9.4 mg/dL (8.4-10.2); Carbon Dioxide 25 mmol/L (22-30); Chloride 99 mmol/L (98-107); Glucose 121 mg/dL (74-99); Magnesium 1.7 mg/dL (1.6-2.3); Non-African American GFR(CKD) >90 (>60 ml/min/1.73 sqM); Sodium 131 mmol/L (137-145); Total Bilirubin 0.7 mg/dL (0.2-1.3); Total Protein 6.3 g/dL (6.3-8.2)
--- NOTE | 2020-02-15 08:27 | XR ---
EXAM: XR Chest, 2 Views CLINICAL HISTORY: ITS.REASON XR Reason: difficulty breathing TECHNIQUE: Frontal and lateral views of the chest. COMPARISON: 02/20/19. FINDINGS: Lungs: Streaky densities in the lung bases. Pleural space: Unremarkable. No pneumothorax. Heart: Cardiovascular silhouette, upper limits of normal and stable. Mediastinum: Unremarkable. Bones/joints: Degenerative changes in the spine. Vasculature: Calcified thoracic aorta is again seen. Tubes, lines and devices: Overlying chest leads obscure portion of the chest. IMPRESSION: Mild bibasilar atelectasis
[2020-02-15 09:06] VITALS: BP 135/77; PULSE 72; RESP 18; TEMP 98.8
== END 2020-02-15 09:06 | disposition home or self-care (01) ==
LOC: EC 06:32
DX: R06.00 Dyspnea, unspecified (principal); G47.9 Sleep disorder, unspecified; J45.909 Unspecified asthma, uncomplicated; I10 Essential (primary) hypertension; I48.91 Unspecified atrial fibrillation; Z20.828 Contact with and (suspected) exposure to other viral communicable diseases; Z79.01 Long term (current) use of anticoagulants; Z88.0 Allergy status to penicillin; Z87.891 Personal history of nicotine dependence; Z95.5 Presence of coronary angioplasty implant and graft; Z98.42 Cataract extraction status, left eye; Z98.41 Cataract extraction status, right eye
CPT/HCPCS: 36415; 71046; 80053; 83605; 83735; 83880; 84484; 85025; 85379; 85610; 85730; 87635; 93005; 99285

== ENCOUNTER → 2020-02-29 | Day surgery (SDC) | payer MEDICARE, BC ==
[2020-02-26 10:30] VITALS: BMI 25.0
[~2020-02-29] MED LIST changes: -LACTATED RINGERS 1,000 ML IV SCH; +LIDOCAINE 1% INJ 10MG/ML (20 ML MDV) SQ ONE
[2020-02-29 10:22] VITALS: BP 177/72; PULSE 58; RESP 16; TEMP 97.7
--- NOTE | 2020-02-29 11:23 | IR ---
PICC LINE PLACEMENT: HISTORY: Infection requiring long-term antibiotic therapy PROCEDURE: Ultrasound and fluoroscopic guidance of PICC line placement. COMPLICATIONS: None ANESTHESIA: 1. 1% Lidocaine locally. FINDINGS/TECHNIQUE: The procedure was explained to the patient. The risks, complications, benefits and alternatives were discussed and any questions were answered. Informed consent was obtained. The patient was placed supine on the fluoroscopic table and prepped and draped in the usual sterile fash ion. Utilizing a 21 gauge needle and sonographic and fluoroscopic guidance, access in the left ceph alic vein was achieved and there is placement of a 0.018 guidewire. The vein is patent. A 4-F sheat h was placed over the guidewire. The guidewire and dilator were removed and a 4-F. PICC line was del nikolai through the sheath with the tip at the level of the SVC. The sheath was removed, the catheter wa s flushed and sutured into position. The patient was stable throughout the procedure and remained st able upon discharge from the Department of Radiology. The vein puncture was patent under ultrasound. A dubon scale image was obtained to document patency of the vein punctured. All elements of the maximal barrier technique were utilized. FLUOROSCOPY TIME: 0.6 minutes in one image submitted IMPRESSION: Successful PICC line placement under ultrasound and fluoroscopic guidance.
== END ==
LOC: CATHCVL 09:44
PROVIDERS: ATTEND Radiology Diagnostic Radiology
DX: L03.115 Cellulitis of right lower limb (principal); M86.8X7 Other osteomyelitis, ankle and foot; B95.61 Methicillin susceptible Staphylococcus aureus infection as the cause of diseases classified elsewhere; S91.302A Unspecified open wound, left foot, initial encounter; Z88.0 Allergy status to penicillin; Z79.2 Long term (current) use of antibiotics; Z79.891 Long term (current) use of opiate analgesic; Z79.899 Other long term (current) drug therapy; Z79.51 Long term (current) use of inhaled steroids; X58.XXXA Exposure to other specified factors, initial encounter
CPT/HCPCS: 36573; C1751; C1769; J2001

== ENCOUNTER 2020-05-15 12:34 | Emergency (ER) | payer MEDICARE, BC ==
[2020-05-15 12:45] VITALS: RESP 18
[2020-05-15 15:01] LABS: Basophils % (A) 1 %; Eosinophils % (A) 1 %; HCT 37.6 % (39.0-53.0); HGB 12.6 gm/dL (13.0-17.5); Lymphocytes % (A) 28 %; MCH 30.1 pg (25.0-35.0); MCHC 33.6 g/dL (31.0-37.0); MCV 89.8 fL (80.0-100.0); Mean Platelet Volume 8.9; Monocytes # (A) 0.2 k/uL (0-1.0); Monocytes % (A) 5 %; Neutrophils # (A) 2.3 k/uL (1.3-7.7); Neutrophils % (A) 64 %; Platelet Count 118 k/uL (150-450); RBC 4.18 m/uL (4.30-5.90); RDW 12.8 % (11.5-15.5); WBC 3.7 k/uL (3.8-10.6)
[2020-05-15 15:04] LABS: ALT 22 U/L (4-49); AST 46 U/L (17-59); African American GFR (CKD) >90 (>60 ml/min/1.73 sqM); Albumin 3.7 g/dL (3.5-5.0); Alkaline Phosphatase 58 U/L (38-126); Anion Gap 10 mmol/L; Blood Urea Nitrogen 11 mg/dL (9-20); Calcium 9.2 mg/dL (8.4-10.2); Carbon Dioxide 25 mmol/L (22-30); Chloride 97 mmol/L (98-107); Glucose 86 mg/dL (74-99); Non-African American GFR(CKD) 89 (>60 ml/min/1.73 sqM); Potassium 3.4 mmol/L (3.5-5.1); Sodium 132 mmol/L (137-145); Total Bilirubin 0.6 mg/dL (0.2-1.3); Total Protein 6.4 g/dL (6.3-8.2)
--- NOTE | 2020-05-15 15:30 | XR ---
EXAMINATION TYPE: XR chest 2V DATE OF EXAM: 05/15/2020 COMPARISON: 02/15/2020 HISTORY: Shortness of breath TECHNIQUE: Frontal and lateral views of the chest are obtained. FINDINGS: Scattered senescent parenchymal changes noted. Hyperinflation compatible with COPD. Right infrahilar infiltrate suspicious for pneumonia. Correlate clinically progress studies are recom mended. Heart size is stable. Mediastinal structures are stable and grossly unremarkable. No evidence for hilar prominence. Degenerative changes dorsal spine. IMPRESSION: 1. Right infrahilar infiltrate suspicious for pneumonia. Correlate clinically progress studies are re commended.
[2020-05-15] MEDS ORDERED: SODIUM CHLORIDE 0.9% 500 ML 500 ML IV ONE (15:46)
[2020-05-15] MEDS ORDERED: POTASSIUM CHLORIDE ER 20 MEQ TAB.ER PO STA (15:46)
[2020-05-15] MEDS ORDERED: BAMLANIVIMAB 700 MG in SODIUM CHLORIDE 0.9% 50 ML IVPB ONE (16:30)
--- NOTE | 2020-05-15 18:13 | ED ---
Pediatric SOB HPI - General Chief Complaint: Shortness of Breath Stated Complaint: SOB, Sore throat Time Seen by Provider: 05/15/20 14:26 Source: patient Mode of arrival: wheelchair Limitations: no limitations - History of Present Illness Initial Comments: 84yo male with hx of atrial fibrillation, presenting for cc of sore throat, congestion, slight cough and dyspnea for the past day. Patient states that he has had a sore throat, nasal congestion and feeling slightly sob for the past day. he states he has occasional cough but nothing consistent. Denies fevers, chest pain, leg swelling, nausea, vomiting, diarrhea or rashes. Denies difficulty swallowing. He denies additional complaints. Upon arrival he appears well nontoxic in no acute distress. - Related Data Home Medications Medication Instructions Recorded Confirmed Budesonide/Formoterol Fumarate 2 puff INHALATION RT-BID 03/30/17 02/29/20 [Symbicort 160-4.5 Mcg Inhaler] Cholecalciferol [Vitamin D3 (25 1,000 unit PO DAILY 03/30/17 02/29/20 Mcg = 1000 Iu)] Dabigatran [Pradaxa] 75 mg PO BID 03/30/17 02/29/20 Latanoprost Ophth [Xalatan 0.005%] 1 drops RIGHT EYE HS 03/30/17 02/26/20 atenoloL [Tenormin] 25 mg PO DAILY 03/30/17 02/29/20 Albuterol Inhaler [Ventolin Hfa 1 puff INHALATION RT-QID PRN 02/08/20 02/29/20 Inhaler] Valsartan 160 mg PO DAILY 02/08/20 02/29/20 Vitamin E 400 unit PO DAILY 02/08/20 02/29/20 Previous Rx's Medication Instructions Recorded amLODIPine [Norvasc] 5 mg PO DAILY #30 tab 02/12/20 Allergies Allergy/AdvReac Type Severity Reaction Status Date / Time Penicillins Allergy facial Verified 05/15/20 12:45 swelling Review of Systems ROS Statement: Those systems with pertinent positive or pertinent negative responses have been documented in the HPI. ROS Other: All systems not noted in ROS Statement are negative. Past Medical History Past Medical History: Atrial Fibrillation, Asthma, Hypertension, Osteoarthritis (OA) Additional Past Medical History / Comment(s): cellulitis and wound rt heel, hx. colon polyps, GERD, glaucoma, borderline diabetes mellitus History of Any Multi-Drug Resistant Organisms: None Reported Past Surgical History: Heart Catheterization Additional Past Surgical History / Comment(s): colonoscopies, Cataracts Past Anesthesia/Blood Transfusion Reactions: No Reported Reaction Past Psychological History: No Psychological Hx Reported Smoking Status: Former smoker Past Alcohol Use History: None Reported Past Drug Use History: None Reported - Past Family History Sister(s) Family Medical History: Cancer Additional Family Medical History / Comment(s): colon Brother(s) Family Medical History: Cancer Additional Family Medical History / Comment(s): colon General Exam - General Exam Comments Initial Comments: General: The patient is awake and alert, in no distress Eye: +3 mm pupils are equal, round and reactive to light, extra-ocular movements are intact. No nystagmus. There is normal conjunctiva bilaterally. No signs of icterus. Ears, nose, mouth and throat: There are moist mucous membranes and no oral lesions. oropharynx mildly erythematous, uvula midline. Neck: The neck is supple, there is no tenderness or JVD. Cardiovascular: There is a regular rate and rhythm. No murmur, rub or gallop is appreciated. Respiratory: Lungs are clear to auscultation, respirations are non-labored, breath sounds are equal. No wheezes, stridor, rales, or rhonchi. Gastrointestinal: Soft, non-distended, non-tender abdomen without masses or organomegaly noted. There is no rebound or guarding present. Musculoskeletal: Normal ROM, no tenderness. Strength 5/5. Sensation intact. Radial and DP pulses equal bilaterally 2+. Neurological: A&O x 3. CN II-XII intact grossly, There are no obvious motor or sensory deficits. Coordination appears grossly intact. Speech is normal. Skin: Skin is warm and dry and no rashes or lesions are noted. Psychiatric: Cooperative, appropriate mood & affect, normal judgment. Limitations: no limitations Course Vital Signs 05/15/20 05/15/20 05/15/20 12:42 14:53 17:11 Temperature 97.6 F 98.1 F Pulse Rate 65 64 Respiratory 18 18 18 Rate Blood Pressure 122/99 O2 Sat by Pulse 96 98 Oximetry 05/15/20 05/15/20 17:39 18:28 Temperature 98.1 F 98.0 F Pulse Rate 57 L 60 Respiratory 18 18 Rate Blood Pressure 182/74 148/78 O2 Sat by Pulse 97 98 Oximetry Medical Decision Making - Medical Decision Making Covid +. Labs stable. No distress on exam. oxygenating well on RA.. No chest pain. EKG compared to previous, no significant change. Patient CXR concerning for pneumonia, felt to likely be viral given no fevers, covid +, with mild leukopenia. Patient offered monoclonal Ab, given age, he would like to proceed with infusion after education-- he is agreeable to care plan and discharge. - Lab Data Result diagrams: 05/15/20 14:51 05/15/20 14:51 Lab Results 05/15/20 05/15/20 05/15/20 Range/Units 14:16 14:51 14:51 WBC 3.7 L (3.8-10.6) k/uL RBC 4.18 L (4.30-5.90) m/uL Hgb 12.6 L (13.0-17.5) gm/dL Hct 37.6 L (39.0-53.0) % MCV 89.8 (80.0-100.0) fL MCH 30.1 (25.0-35.0) pg MCHC 33.6 (31.0-37.0) g/dL RDW 12.8 (11.5-15.5) % Plt Count 118 L (150-450) k/uL MPV 8.9 Neutrophils % 64 % Lymphocytes % 28 % Monocytes % 5 % Eosinophils % 1 % Basophils % 1 % Neutrophils # 2.3 (1.3-7.7) k/uL Lymphocytes # 1.0 (1.0-4.8) k/uL Monocytes # 0.2 (0-1.0) k/uL Eosinophils # 0.0 (0-0.7) k/uL Basophils # 0.0 (0-0.2) k/uL Sodium 132 L (137-145) mmol/L Potassium 3.4 L (3.5-5.1) mmol/L Chloride 97 L (98-107) mmol/L Carbon Dioxide 25 (22-30) mmol/L Anion Gap 10 mmol/L BUN 11 (9-20) mg/dL Creatinine 0.65 L (0.66-1.25) mg/dL Est GFR (CKD-EPI)AfAm >90 (>60 ml/min/1.73 sqM) Est GFR (CKD-EPI)NonAf 89 (>60 ml/min/1.73 sqM) Glucose 86 (74-99) mg/dL Plasma Lactic Acid Riky (0.7-2.0) mmol/L Calcium 9.2 (8.4-10.2) mg/dL Total Bilirubin 0.6 (0.2-1.3) mg/dL AST 46 (17-59) U/L ALT 22 (4-49) U/L Alkaline Phosphatase 58 (38-126) U/L Troponin I (0.000-0.034) ng/mL Total Protein 6.4 (6.3-8.2) g/dL Albumin 3.7 (3.5-5.0) g/dL Coronavirus (PCR) Detected A (Not Detectd) 05/15/20 05/15/20 Range/Units 14:51 14:51 WBC (3.8-10.6) k/uL RBC (4.30-5.90) m/uL Hgb (13.0-17.5) gm/dL Hct (39.0-53.0) % MCV (80.0-100.0) fL MCH (25.0-35.0) pg MCHC (31.0-37.0) g/dL RDW (11.5-15.5) % Plt Count (150-450) k/uL MPV Neutrophils % % Lymphocytes % % Monocytes % % Eosinophils % % Basophils % % Neutrophils # (1.3-7.7) k/uL Lymphocytes # (1.0-4.8) k/uL Monocytes # (0-1.0) k/uL Eosinophils # (0-0.7) k/uL Basophils # (0-0.2) k/uL Sodium (137-145) mmol/L Potassium (3.5-5.1) mmol/L Chloride (98-107) mmol/L Carbon Dioxide (22-30) mmol/L Anion Gap mmol/L BUN (9-20) mg/dL Creatinine (0.66-1.25) mg/dL Est GFR (CKD-EPI)AfAm (>60 ml/min/1.73 sqM) Est GFR (CKD-EPI)NonAf (>60 ml/min/1.73 sqM) Glucose (74-99) mg/dL Plasma Lactic Acid Riky 0.9 (0.7-2.0) mmol/L Calcium (8.4-10.2) mg/dL Total Bilirubin (0.2-1.3) mg/dL AST (17-59) U/L ALT (4-49) U/L Alkaline Phosphatase (38-126) U/L Troponin I 0.015 (0.000-0.034) ng/mL Total Protein (6.3-8.2) g/dL Albumin (3.5-5.0) g/dL Coronavirus (PCR) (Not Detectd) Disposition Clinical Impression: COVID-19, Dyspnea, Pneumonia due to COVID-19 virus Disposition: HOME SELF-CARE Condition: Good Instructions (If sedation given, give patient instructions): Coronavirus Disease 2019 (COVID-19) Additional Instructions: Please use medication as discussed. Please follow-up with family doctor in the next 2 days. Please return to emergency room if the symptoms increase or worsen or for any other concerns. Is patient prescribed a controlled substance at d/c from ED?: No Referrals: Kolby Juarez MD [Primary Care Provider] - 1-2 days Time of Disposition: 18:28
[2020-05-15 18:31] VITALS: BP 148/78; PULSE 60; TEMP 98
== END 2020-05-15 18:49 | disposition home or self-care (01) ==
LOC: EC 12:34
DX: U07.1 COVID-19 (principal); J12.82 Pneumonia due to coronavirus disease 2019; E11.36 Type 2 diabetes mellitus with diabetic cataract; I10 Essential (primary) hypertension; I48.91 Unspecified atrial fibrillation; J45.909 Unspecified asthma, uncomplicated; K21.9 Gastro-esophageal reflux disease without esophagitis; M19.90 Unspecified osteoarthritis, unspecified site; Z79.01 Long term (current) use of anticoagulants; Z79.51 Long term (current) use of inhaled steroids; Z87.19 Personal history of other diseases of the digestive system; Z87.891 Personal history of nicotine dependence; Z88.0 Allergy status to penicillin
CPT/HCPCS: 36415; 93005; 80053; 83605; 84484; 85025; 87635; 71046; 99285; 96374; Q0239

== ENCOUNTER 2020-05-24 12:43 | Emergency (ER) | payer MEDICARE, BC ==
--- NOTE | 2020-05-24 13:05 | ED ---
General Adult HPI - General Chief complaint: Shortness of Breath Stated complaint: ROBERT,Chest discomfort Time Seen by Provider: 05/24/20 12:59 Source: patient Mode of arrival: ambulatory Limitations: no limitations - History of Present Illness Initial comments: Patient presents the ED stating that he was diagnosed with Covid 8 days ago, and he states that he has become more dyspneic today. Patient states that his symptoms initially began about 10 days ago. Patient states that he has had a cough and intermittent dyspnea. Patient denies feeling dyspneic currently. Patient received monoclonal antibody treatment for his Covid infection last week. Patient denies having any pain, fever or chills, headache, focal neuro deficit, chest pain or pressure, hemoptysis, palpitations, dizziness, nausea/vomiting/diarrhea, abdominal pain, decreased urine output, dysuria or urinary symptoms, leg or calf swelling or pain, or any other symptoms or complaints. - Related Data Home Medications Medication Instructions Recorded Confirmed Latanoprost Ophth [Xalatan 0.005%] 1 drops RIGHT EYE HS 03/30/17 05/24/20 atenoloL [Tenormin] 25 mg PO DAILY 03/30/17 05/24/20 Albuterol Inhaler [Ventolin Hfa 1 puff INHALATION RT-QID PRN 02/08/20 05/24/20 Inhaler] Valsartan 160 mg PO DAILY 02/08/20 05/24/20 Vitamin E 400 unit PO DAILY 02/08/20 05/24/20 Albuterol Nebulized [Ventolin 2.5 mg INHALATION RT-Q6H PRN 05/24/20 05/24/20 Nebulized] Ascorbic Acid [Vitamin C] 1,000 mg PO DAILY 05/24/20 05/24/20 Azithromycin [Zithromax] 500 mg PO DAILY 05/24/20 05/24/20 Dexamethasone 6 mg PO DAILY 05/24/20 05/24/20 Eszopiclone [Lunesta] 2 mg PO HS PRN 05/24/20 05/24/20 hydroCHLOROthiazide [Hydrodiuril] 25 mg PO DAILY 05/24/20 05/24/20 Previous Rx's Medication Instructions Recorded amLODIPine [Norvasc] 5 mg PO DAILY #30 tab 02/12/20 Allergies Allergy/AdvReac Type Severity Reaction Status Date / Time Penicillins Allergy facial Verified 05/24/20 13:30 swelling Review of Systems ROS Statement: Those systems with pertinent positive or pertinent negative responses have been documented in the HPI. ROS Other: All systems not noted in ROS Statement are negative. Past Medical History Past Medical History: Atrial Fibrillation, Asthma, Hypertension, Osteoarthritis (OA) Additional Past Medical History / Comment(s): cellulitis and wound rt heel, hx. colon polyps, GERD, glaucoma, borderline diabetes mellitus History of Any Multi-Drug Resistant Organisms: None Reported Past Surgical History: Heart Catheterization Additional Past Surgical History / Comment(s): colonoscopies, Cataracts Past Anesthesia/Blood Transfusion Reactions: No Reported Reaction Past Psychological History: No Psychological Hx Reported Smoking Status: Never smoker Past Alcohol Use History: None Reported Past Drug Use History: None Reported - Past Family History Sister(s) Family Medical History: Cancer Additional Family Medical History / Comment(s): colon Brother(s) Family Medical History: Cancer Additional Family Medical History / Comment(s): colon General Exam Limitations: no limitations General appearance: alert, in no apparent distress Head exam: Present: atraumatic, normocephalic Eye exam: Present: normal appearance, EOMI ENT exam: Present: mucous membranes moist Neck exam: Present: other (Trachea is in midline) Respiratory exam: Present: normal lung sounds bilaterally. Absent: respiratory distress, wheezes, rales, rhonchi, stridor Cardiovascular Exam: Present: bradycardia, irregular rhythm, normal heart sounds, other (Normal radial pulses bilaterally) GI/Abdominal exam: Present: soft. Absent: distended, tenderness, guarding Extremities exam: Present: other (Negative Homans sign bilaterally; right foot heel ulcer with wound VAC in place). Absent: tenderness, pedal edema, calf tenderness Neurological exam: Present: alert, oriented X3. Absent: motor sensory deficit Psychiatric exam: Present: normal affect, normal mood Skin exam: Present: warm, dry, normal color Course Vital Signs 05/24/20 05/24/20 05/24/20 12:46 13:21 14:09 Temperature 98.7 F Pulse Rate 54 L 59 L Respiratory 24 18 Rate Blood Pressure 191/81 O2 Sat by Pulse 94 L 99 95 Oximetry 05/24/20 15:16 Temperature Pulse Rate 59 L Respiratory 18 Rate Blood Pressure 193/95 O2 Sat by Pulse 100 Oximetry - Reevaluation(s) Reevaluation #1: 05/24/20 16:22 Patient denies development of any new symptoms while in the ED. Patient remains alert and breathing comfortably with clear breath sounds bilaterally and a normal room air oxygen saturation. Patient's blood pressure has now improved (157/87). Patient is aware of his test results, and he feels comfortable going home at this time. Patient was counseled about Covid infection, as well as hypertension. Patient was clearly explained return and follow-up instructions. Patient was instructed to have a low threshold for return to the ED should his symptoms worsen. Patient was also instructed to follow up closely with his primary care provider. EKG Findings - EKG Comments: EKG Findings:: Atrial fibrillation with slow ventricular response, ventricular rate of 56 bpm, normal QRS duration, normal QT interval, normal axis, nonspecific T-wave abnormality, no significant change when compared to 04/22 EKG Medical Decision Making - Medical Decision Making Patient has been alert and breathing comfortably in the ED with clear breath sounds bilaterally and a normal room air oxygen saturation. Patient's chest x- ray has improved slightly compared to his old exam. Patient is afebrile and without leukocytosis. Patient's d-dimer and troponin are within normal limits. Patient has already received monoclonal antibody treatment for his Covid infection. I do not feel that admission or any other treatment is indicated at this time. Will discharge patient home at this time. Patient was instructed to, and agrees to, follow-up closely with his primary care provider. - Lab Data Result diagrams: 05/24/20 13:46 05/24/20 13:46 Lab Results 05/24/20 05/24/20 05/24/20 Range/Units 13:46 13:46 13:46 WBC 6.6 (3.8-10.6) k/uL RBC 4.17 L (4.30-5.90) m/uL Hgb 12.1 L (13.0-17.5) gm/dL Hct 37.3 L (39.0-53.0) % MCV 89.5 (80.0-100.0) fL MCH 28.9 (25.0-35.0) pg MCHC 32.3 (31.0-37.0) g/dL RDW 12.8 (11.5-15.5) % Plt Count 260 D (150-450) k/uL MPV 9.5 Lymphocytes % 15 % Monocytes % 9 % Eosinophils % 1 % Basophils % 0 % Neutrophils # 4.9 (1.3-7.7) k/uL Lymphocytes # 1.0 (1.0-4.8) k/uL Monocytes # 0.6 (0-1.0) k/uL Eosinophils # 0.1 (0-0.7) k/uL Basophils # 0.0 (0-0.2) k/uL PT 12.0 (9.0-12.0) sec INR 1.1 (<1.2) APTT 27.6 (22.0-30.0) sec D-Dimer 0.25 (<0.60) mg/L FEU Sodium 131 L (137-145) mmol/L Potassium 4.7 (3.5-5.1) mmol/L Chloride 97 L (98-107) mmol/L Carbon Dioxide 27 (22-30) mmol/L Anion Gap 7 mmol/L BUN 17 (9-20) mg/dL Creatinine 0.58 L (0.66-1.25) mg/dL Est GFR (CKD-EPI)AfAm >90 (>60 ml/min/1.73 sqM) Est GFR (CKD-EPI)NonAf >90 (>60 ml/min/1.73 sqM) Glucose 102 H (74-99) mg/dL Plasma Lactic Acid Riky (0.7-2.0) mmol/L Calcium 9.8 (8.4-10.2) mg/dL Magnesium 1.9 (1.6-2.3) mg/dL Total Bilirubin 0.8 (0.2-1.3) mg/dL AST 34 (17-59) U/L ALT 30 (4-49) U/L Alkaline Phosphatase 50 (38-126) U/L Lactate Dehydrogenase 754 H (313-618) U/L Troponin I (0.000-0.034) ng/mL C-Reactive Protein 8.4 (<10.0) mg/L NT-Pro-B Natriuret Pep pg/mL Total Protein 6.7 (6.3-8.2) g/dL Albumin 3.8 (3.5-5.0) g/dL 0405/24/20 05/24/20 Range/Units 13:46 13:46 13:46 WBC (3.8-10.6) k/uL RBC (4.30-5.90) m/uL Hgb (13.0-17.5) gm/dL Hct (39.0-53.0) % MCV (80.0-100.0) fL MCH (25.0-35.0) pg MCHC (31.0-37.0) g/dL RDW (11.5-15.5) % Plt Count (150-450) k/uL MPV Lymphocytes % % Monocytes % % Eosinophils % % Basophils % % Neutrophils # (1.3-7.7) k/uL Lymphocytes # (1.0-4.8) k/uL Monocytes # (0-1.0) k/uL Eosinophils # (0-0.7) k/uL Basophils # (0-0.2) k/uL PT (9.0-12.0) sec INR (<1.2) APTT (22.0-30.0) sec D-Dimer (<0.60) mg/L FEU Sodium (137-145) mmol/L Potassium (3.5-5.1) mmol/L Chloride (98-107) mmol/L Carbon Dioxide (22-30) mmol/L Anion Gap mmol/L BUN (9-20) mg/dL Creatinine (0.66-1.25) mg/dL Est GFR (CKD-EPI)AfAm (>60 ml/min/1.73 sqM) Est GFR (CKD-EPI)NonAf (>60 ml/min/1.73 sqM) Glucose (74-99) mg/dL Plasma Lactic Acid Riky 1.2 (0.7-2.0) mmol/L Calcium (8.4-10.2) mg/dL Magnesium (1.6-2.3) mg/dL Total Bilirubin (0.2-1.3) mg/dL AST (17-59) U/L ALT (4-49) U/L Alkaline Phosphatase (38-126) U/L Lactate Dehydrogenase (313-618) U/L Troponin I <0.012 (0.000-0.034) ng/mL C-Reactive Protein (<10.0) mg/L NT-Pro-B Natriuret Pep 2530 pg/mL Total Protein (6.3-8.2) g/dL Albumin (3.5-5.0) g/dL - Radiology Data Radiology results: report reviewed (Chest x-ray: Increased interstitial density similar to old exam, no pulmonary consolidation, no obvious heart failure, pulmonary vascularity is improved compared to last exam) Disposition Clinical Impression: Hypertension, COVID-19 Disposition: HOME SELF-CARE Condition: Stable Instructions (If sedation given, give patient instructions): Coronavirus Disease 2019 (COVID-19) Additional Instructions: Return to the ER immediately should you develop increased shortness of breath, a fever, chest pain, feeling dizzy or faint, or new or worsening symptoms. Follow up closely with your primary care provider. Is patient prescribed a controlled substance at d/c from ED?: No Referrals: Kolby Juarez MD [Primary Care Provider] - 1-2 days Time of Disposition: 16:24
[2020-05-24 14:10] LABS: ALT 30 U/L (4-49); African American GFR (CKD) >90 (>60 ml/min/1.73 sqM); Albumin 3.8 g/dL (3.5-5.0); Anion Gap 7 mmol/L; Blood Urea Nitrogen 17 mg/dL (9-20); C Reactive Protein 8.4 mg/L (<10.0); Calcium 9.8 mg/dL (8.4-10.2); Carbon Dioxide 27 mmol/L (22-30); Chloride 97 mmol/L (98-107); Glucose 102 mg/dL (74-99); Non-African American GFR(CKD) >90 (>60 ml/min/1.73 sqM); Sodium 131 mmol/L (137-145); Total Bilirubin 0.8 mg/dL (0.2-1.3); Total Protein 6.7 g/dL (6.3-8.2)
[2020-05-24 14:13] LABS: AST 34 U/L (17-59); Alkaline Phosphatase 50 U/L (38-126); Magnesium 1.9 mg/dL (1.6-2.3); Potassium 4.7 mmol/L (3.5-5.1)
[2020-05-24 14:14] LABS: LDH 754 U/L (313-618)
--- NOTE | 2020-05-24 14:17 | XR ---
EXAMINATION TYPE: XR chest 1V portable DATE OF EXAM: 05/24/2020 COMPARISON: 05/15/2020 HISTORY: Cough. Short of breath. TECHNIQUE: Single view FINDINGS: Heart is slightly enlarged. There is some interstitial infiltrate in the mid and lower lung edwards. There is no obvious heart failure. There are no hilar masses. There is no pleural effusion. There are chest leads. IMPRESSION: Increased interstitial density similar to old exam. No pulmonary consolidation. No obviou s heart failure. Pulmonary vascularity is improved compared to last exam.
[2020-05-24 14:21] LABS: D-Dimer 0.25 mg/L FEU (<0.60); INR 1.1 (<1.2)
[2020-05-24 14:22] LABS: Partial Thromboplastin Time 27.6 sec (22.0-30.0)
[2020-05-24 14:34] LABS: Basophils % (A) 0 %; Eosinophils # (A) 0.1 k/uL (0-0.7); Eosinophils % (A) 1 %; HCT 37.3 % (39.0-53.0); HGB 12.1 gm/dL (13.0-17.5); Lymphocytes % (A) 15 %; MCH 28.9 pg (25.0-35.0); MCHC 32.3 g/dL (31.0-37.0); MCV 89.5 fL (80.0-100.0); Mean Platelet Volume 9.5; Monocytes # (A) 0.6 k/uL (0-1.0); Monocytes % (A) 9 %; Neutrophils # (A) 4.9 k/uL (1.3-7.7); RBC 4.17 m/uL (4.30-5.90); RDW 12.8 % (11.5-15.5); WBC 6.6 k/uL (3.8-10.6)
[2020-05-24 14:51] LABS: Platelet Count 260 k/uL (150-450)
[2020-05-24] MEDS ORDERED: hydrALAZINE HCL 20 MG/ML 1 ML VIAL IVP STA (15:22)
[2020-05-24 16:23] VITALS: PULSE 72; RESP 20; TEMP 97.9
[2020-05-24 17:24] VITALS: BP 154/82
[2020-05-24 18:20] LABS: Ferritin 290.8 ng/mL (22.0-322.0)
== END 2020-05-24 17:00 | disposition home or self-care (01) ==
LOC: EC 12:43
DX: U07.1 COVID-19 (principal); I10 Essential (primary) hypertension; I48.91 Unspecified atrial fibrillation; J45.909 Unspecified asthma, uncomplicated; K21.9 Gastro-esophageal reflux disease without esophagitis; M19.90 Unspecified osteoarthritis, unspecified site; E11.9 Type 2 diabetes mellitus without complications; Z87.19 Personal history of other diseases of the digestive system; Z79.899 Other long term (current) drug therapy; Z79.52 Long term (current) use of systemic steroids; Z88.0 Allergy status to penicillin
CPT/HCPCS: 36415; 93005; 85379; 83880; 80053; 82728; 83605; 83615; 83735; 84484; 85025; 85610; 85730; 86140; 87040; 84145; 71045; 99285; 96374; J0360

== ENCOUNTER → 2020-06-06 | Outpatient (CLI) | payer MEDICARE, BC ==
--- NOTE | 2020-06-08 16:51 | XR ---
EXAMINATION TYPE: XR calcaneus 2V RT DATE OF EXAM: 06/06/2020 COMPARISON: 02/08/2020 HISTORY: 84-year-old male M86.671 TECHNIQUE: 2 views FINDINGS: Along the seen posteriorly and along the plantar aspect of the heel. Small posterior and plantar heel spurs are present on both sides. Continued posterior soft tissue thickening at the posterior heel. S ome of the patient's posterior wound may affect the Achilles insertion but no suspicious underlying o sseous changes are clearly seen at this time at this site. However, the deeper wound along the planta r aspect of the heel now show some focal cortical lucency in the underlying calcaneus. No laura lytic destruction. IMPRESSION: 1. Posterior and plantar wounds. The plantar wound show some new cortical lucency in the underlying c alcaneus on both the Rebollar and lateral views. Findings concerning for early osteomyelitis. 2. The posterior wound may involve a portion of the Achilles tendon insertion.
== END | disposition home or self-care (01) ==
LOC: RADXRMAIN 09:39
PROVIDERS: ATTEND Podiatrist
DX: M86.671 Other chronic osteomyelitis, right ankle and foot (principal)

== ENCOUNTER 2020-12-16 12:35 | Emergency (ER) | payer MEDICARE, BC ==
--- NOTE | 2020-12-16 13:18 | ED ---
Abdominal Pain HPI - General Chief Complaint: Abdominal Pain Stated Complaint: bowel blockage Time Seen by Provider: 12/16/20 13:02 Source: patient, RN notes reviewed Mode of arrival: ambulatory Limitations: no limitations - History of Present Illness Initial Comments: Patient is a 85-year-old male presents to ED for abdominal pain. Patient states that was at PCPs office today and obtained x-ray showing bowel obstruction. Patient states symptoms started 1 week prior, with worsening over this past weekend of abdominal discomfort. Patient reports having sizable bowel movement in one week, has had small loose stools infrequently. Patient reports d iscomfort in right lower quadrant denies pain at this time just has generalized fullness. Patient reports normal appetite, denies fever or nausea vomiting, cough or congestion. Patient denies any blood in stool. - Related Data Home Medications Medication Instructions Recorded Confirmed Latanoprost Ophth [Xalatan 0.005%] 1 drops RIGHT EYE HS 03/30/17 05/24/20 atenoloL [Tenormin] 25 mg PO DAILY 03/30/17 05/24/20 Albuterol Inhaler [Ventolin Hfa 1 puff INHALATION RT-QID PRN 02/08/20 05/24/20 Inhaler] Valsartan 160 mg PO DAILY 02/08/20 05/24/20 Vitamin E 400 unit PO DAILY 02/08/20 05/24/20 Albuterol Nebulized [Ventolin 2.5 mg INHALATION RT-Q6H PRN 05/24/20 05/24/20 Nebulized] Ascorbic Acid [Vitamin C] 1,000 mg PO DAILY 05/24/20 05/24/20 Azithromycin [Zithromax] 500 mg PO DAILY 05/24/20 05/24/20 Dexamethasone 6 mg PO DAILY 05/24/20 05/24/20 Eszopiclone [Lunesta] 2 mg PO HS PRN 05/24/20 05/24/20 hydroCHLOROthiazide [Hydrodiuril] 25 mg PO DAILY 05/24/20 05/24/20 Previous Rx's Medication Instructions Recorded amLODIPine [Norvasc] 5 mg PO DAILY #30 tab 02/12/20 Allergies Allergy/AdvReac Type Severity Reaction Status Date / Time Penicillins Allergy facial Verified 05/24/20 13:30 swelling Review of Systems ROS Statement: Those systems with pertinent positive or pertinent negative responses have been documented in the HPI. ROS Other: All systems not noted in ROS Statement are negative. Past Medical History Past Medical History: Atrial Fibrillation, Asthma, Hypertension, Osteoarthritis (OA) Additional Past Medical History / Comment(s): cellulitis and wound rt heel, hx. colon polyps, GERD, glaucoma, borderline diabetes mellitus History of Any Multi-Drug Resistant Organisms: None Reported Past Surgical History: Heart Catheterization Additional Past Surgical History / Comment(s): colonoscopies, Cataracts Past Anesthesia/Blood Transfusion Reactions: No Reported Reaction Past Psychological History: No Psychological Hx Reported Smoking Status: Never smoker - Past Family History Sister(s) Family Medical History: Cancer Additional Family Medical History / Comment(s): colon Brother(s) Family Medical History: Cancer Additional Family Medical History / Comment(s): colon General Exam Limitations: no limitations General appearance: alert, in no apparent distress Respiratory exam: Present: normal lung sounds bilaterally. Absent: respiratory distress, wheezes, rales, rhonchi, stridor Cardiovascular Exam: Present: regular rate, normal rhythm, normal heart sounds. Absent: systolic murmur, diastolic murmur, rubs, gallop, clicks GI/Abdominal exam: Present: distended, tenderness (Mild, RLQ), hyperactive bowel sounds Neurological exam: Present: alert, oriented X3, CN II-XII intact Skin exam: Present: warm, dry, intact, normal color. Absent: rash Course Vital Signs 12/16/20 12:49 Temperature 97.9 F Pulse Rate 69 Respiratory 16 Rate Blood Pressure 148/89 O2 Sat by Pulse 98 Oximetry Medical Decision Making - Medical Decision Making 85-year-old male presented after concerns for hernia causing obstruction. Patient CT shows a large right inguinal hernia which was easily reduced in the room with no problems. Patient labs are otherwise unremarkable patient will be discharged with follow-up with on-call surgery. - Lab Data Result diagrams: 12/16/20 13:24 12/16/20 13:24 Lab Results 12/16/20 12/16/20 12/16/20 Range/Units 13:24 13:24 13:24 WBC 6.3 (3.8-10.6) k/uL RBC 3.94 L (4.30-5.90) m/uL Hgb 12.6 L (13.0-17.5) gm/dL Hct 36.7 L (39.0-53.0) % MCV 93.1 (80.0-100.0) fL MCH 32.0 (25.0-35.0) pg MCHC 34.4 (31.0-37.0) g/dL RDW 12.4 (11.5-15.5) % Plt Count 212 (150-450) k/uL MPV 8.0 Neutrophils % 68 % Lymphocytes % 19 % Monocytes % 5 % Eosinophils % 5 % Basophils % 1 % Neutrophils # 4.3 (1.3-7.7) k/uL Lymphocytes # 1.2 (1.0-4.8) k/uL Monocytes # 0.3 (0-1.0) k/uL Eosinophils # 0.3 (0-0.7) k/uL Basophils # 0.0 (0-0.2) k/uL Sodium 130 L (137-145) mmol/L Potassium 4.2 (3.5-5.1) mmol/L Chloride 94 L (98-107) mmol/L Carbon Dioxide 27 (22-30) mmol/L Anion Gap 9 mmol/L BUN 13 (9-20) mg/dL Creatinine 0.59 L (0.66-1.25) mg/dL Est GFR (CKD-EPI)AfAm >90 (>60 ml/min/1.73 sqM) Est GFR (CKD-EPI)NonAf >90 (>60 ml/min/1.73 sqM) Glucose 120 H (74-99) mg/dL Plasma Lactic Acid Riky (0.7-2.0) mmol/L Calcium 10.2 (8.4-10.2) mg/dL Total Bilirubin 0.7 (0.2-1.3) mg/dL AST 28 (17-59) U/L ALT 19 (4-49) U/L Alkaline Phosphatase 73 (38-126) U/L Total Protein 7.1 (6.3-8.2) g/dL Albumin 4.1 (3.5-5.0) g/dL Lipase 46 (23-300) U/L Urine Color Light Yellow Urine Appearance Clear (Clear) Urine pH 6.5 (5.0-8.0) Ur Specific [place] 1.005 (1.001-1.035) Urine Protein Negative (Negative) Urine Glucose (UA) Negative (Negative) Urine Ketones Negative (Negative) Urine Blood Negative (Negative) Urine Nitrite Negative (Negative) Urine Bilirubin Negative (Negative) Urine Urobilinogen <2.0 (<2.0) mg/dL Ur Leukocyte Esterase Negative (Negative) 12/16/20 Range/Units 13:24 WBC (3.8-10.6) k/uL RBC (4.30-5.90) m/uL Hgb (13.0-17.5) gm/dL Hct (39.0-53.0) % MCV (80.0-100.0) fL MCH (25.0-35.0) pg MCHC (31.0-37.0) g/dL RDW (11.5-15.5) % Plt Count (150-450) k/uL MPV Neutrophils % % Lymphocytes % % Monocytes % % Eosinophils % % Basophils % % Neutrophils # (1.3-7.7) k/uL Lymphocytes # (1.0-4.8) k/uL Monocytes # (0-1.0) k/uL Eosinophils # (0-0.7) k/uL Basophils # (0-0.2) k/uL Sodium (137-145) mmol/L Potassium (3.5-5.1) mmol/L Chloride (98-107) mmol/L Carbon Dioxide (22-30) mmol/L Anion Gap mmol/L BUN (9-20) mg/dL Creatinine (0.66-1.25) mg/dL Est GFR (CKD-EPI)AfAm (>60 ml/min/1.73 sqM) Est GFR (CKD-EPI)NonAf (>60 ml/min/1.73 sqM) Glucose (74-99) mg/dL Plasma Lactic Acid Riky 0.9 (0.7-2.0) mmol/L Calcium (8.4-10.2) mg/dL Total Bilirubin (0.2-1.3) mg/dL AST (17-59) U/L ALT (4-49) U/L Alkaline Phosphatase (38-126) U/L Total Protein (6.3-8.2) g/dL Albumin (3.5-5.0) g/dL Lipase (23-300) U/L Urine Color Urine Appearance (Clear) Urine pH (5.0-8.0) Ur Specific [place] (1.001-1.035) Urine Protein (Negative) Urine Glucose (UA) (Negative) Urine Ketones (Negative) Urine Blood (Negative) Urine Nitrite (Negative) Urine Bilirubin (Negative) Urine Urobilinogen (<2.0) mg/dL Ur Leukocyte Esterase (Negative) Disposition Clinical Impression: Right inguinal hernia Disposition: HOME SELF-CARE Condition: Stable Instructions (If sedation given, give patient instructions): Inguinal Hernia (ED) Additional Instructions: Please return to the Emergency Department if symptoms worsen or any other concerns. Is patient prescribed a controlled substance at d/c from ED?: No Referrals: Yandy Mansfield MD [Primary Care Provider] - 1-2 days Prosper Ness MD [STAFF PHYSICIAN] - 1-2 days Time of Disposition: 15:55
[2020-12-16 13:53] LABS: Basophils % (A) 1 %; Eosinophils # (A) 0.3 k/uL (0-0.7); Eosinophils % (A) 5 %; HCT 36.7 % (39.0-53.0); HGB 12.6 gm/dL (13.0-17.5); Lymphocytes # (A) 1.2 k/uL (1.0-4.8); Lymphocytes % (A) 19 %; MCHC 34.4 g/dL (31.0-37.0); MCV 93.1 fL (80.0-100.0); Monocytes # (A) 0.3 k/uL (0-1.0); Monocytes % (A) 5 %; Neutrophils # (A) 4.3 k/uL (1.3-7.7); Neutrophils % (A) 68 %; Platelet Count 212 k/uL (150-450); RBC 3.94 m/uL (4.30-5.90); RDW 12.4 % (11.5-15.5); WBC 6.3 k/uL (3.8-10.6)
[2020-12-16 13:59] LABS: Appearance,Urine Clear (Clear); Bilirubin,Urine Negative (Negative); Blood,Urine Negative (Negative); Color,Urine Light Yellow; Glucose,Urine (UA) Negative (Negative); Ketones,Urine Negative (Negative); Leukocyte Esterase,Urine Negative (Negative); Nitrite,Urine Negative (Negative); PH, Urine 6.5 (5.0-8.0); Protein,Urine Negative (Negative); Specific Gravity,Urine 1.005 (1.001-1.035); Urobilinogen,Urine <2.0 mg/dL (<2.0)
[2020-12-16 14:13] LABS: ALT 19 U/L (4-49); AST 28 U/L (17-59); African American GFR (CKD) >90 (>60 ml/min/1.73 sqM); Albumin 4.1 g/dL (3.5-5.0); Alkaline Phosphatase 73 U/L (38-126); Anion Gap 9 mmol/L; Blood Urea Nitrogen 13 mg/dL (9-20); Calcium 10.2 mg/dL (8.4-10.2); Carbon Dioxide 27 mmol/L (22-30); Chloride 94 mmol/L (98-107); Glucose 120 mg/dL (74-99); Lipase 46 U/L (23-300); Non-African American GFR(CKD) >90 (>60 ml/min/1.73 sqM); Potassium 4.2 mmol/L (3.5-5.1); Sodium 130 mmol/L (137-145); Total Bilirubin 0.7 mg/dL (0.2-1.3); Total Protein 7.1 g/dL (6.3-8.2)
--- NOTE | 2020-12-16 15:28 | CT ---
EXAMINATION TYPE: CT abdomen pelvis w con DATE OF EXAM: 12/16/2020 COMPARISON: None HISTORY: generalized abdominal pain CT DLP: 827.4 mGycm Automated exposure control for dose reduction was used. TECHNIQUE: Helical acquisition of images from the lung bases through the pelvis have been completed. CONTRAST: Performed without Oral Contrast and with IV Contrast, patient injected with 100 mL of Isovue 300. FINDINGS: There is a right inguinal hernia containing bowel loops. There is a hiatal hernia containin g fat. The heart is enlarged. There are coronary artery calcifications, as right atrial and left atri al enlargement suspected. Along the right flank there is a lipoma within the musculature, axial image 43 measuring 4.8 x 1.3 cm LUNG BASES: No significant abnormality is appreciated. AORTA: There are dense atherosclerotic calcifications present. LIVER/GB: Multiple irregular calculi are present within the gallbladder, liver shows a subcentimeter focus of low attenuation on axial image 22 in the lateral aspect of the right lobe liver and also on axial image 16. 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 ADRENALS: No significant abnormality is seen. KIDNEYS: Cortical cysts are associated with the kidneys, the largest at the interpolar right kidney m easures 6 cm, largest on the left also exophytic in the anterior aspect of the upper pole measures 1. 7 cm, 7 cysts on the left, 4-5 on the right REPRODUCTIVE ORGANS: Enlarged, there is some associated calcification BOWEL: No evident bowel obstruction, the appendix is normal. FREE AIR: No Free Air visible. ASCITES: None visible. PELVIC ADENOPATHY: None visualized. RETROPERITONEAL ADENOPATHY: No Retroperitoneal Adenopathy visible. URINARY BLADDER: Distended, correlate for chronic outlet obstruction OSSEOUS STRUCTURES: Degenerative disc disease and facet arthropathy noted at the lower lumbar spine. . IMPRESSION: RIGHT INGUINAL HERNIA CONTAINING BOWEL LOOPS. CORRELATE FOR POSSIBLE URINARY RETENTION. CORRELATE FOR ANY HISTORY OF POSSIBLE GROOVE PANCREATITIS, CONSIDER FOLLOW-UP IMAGING TO ASSESS FOR STABILITY. 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 HIATAL HERNIA..
[2020-12-16 16:19] VITALS: BP 155/89; PULSE 57; RESP 18; TEMP 97.6
== END 2020-12-16 16:19 | disposition home or self-care (01) ==
LOC: EC 12:35
DX: K40.90 Unilateral inguinal hernia, without obstruction or gangrene, not specified as recurrent (principal); I10 Essential (primary) hypertension; I48.91 Unspecified atrial fibrillation; J45.909 Unspecified asthma, uncomplicated; M19.90 Unspecified osteoarthritis, unspecified site; Z88.0 Allergy status to penicillin
CPT/HCPCS: 99284; 36415; 80053; 83605; 83690; 85025; 81003; 74177; Q9967

== ENCOUNTER → 2021-03-18 | Outpatient (CLI) | payer MEDICARE, BC ==
[2021-03-18 09:54] LABS: African American GFR (CKD) >90 (>60 ml/min/1.73 sqM); Blood Urea Nitrogen 11 mg/dL (9-20); Non-African American GFR(CKD) 87 (>60 ml/min/1.73 sqM)
--- NOTE | 2021-03-18 12:46 | CT ---
EXAMINATION TYPE: CT abdomen pelvis w con DATE OF EXAM: 03/18/2021 COMPARISON: CT abdomen and pelvis December 16, 2020 HISTORY: Unilateral inguinal hernia with discomfort. Groin pain . CT DLP: 680.8 mGycm, Automated Exposure Control for Dose Reduction was Utilized. CONTRAST: CT scan of the abdomen and pelvis is performed with oral and with IV Contrast, patient injected with 100 mL of Isovue 300. FINDINGS: Lung bases: Mild cardiomegaly with at least moderate right atrial dilatation is redemonstrated. Coron ruth ann artery calcification in the RCA distribution is again seen. LIVER/GB: Multiple intraluminal gallstones of varying size and density predominantly calcified are re demonstrated. No new surrounding fat stranding. Liver remains heterogeneously hypodense suggesting un derlying hepatocellular disease, probable fatty infiltration. PANCREAS: Stable 2 mm calcific focus near pancreatic head axial image 29 could reflect lobulated luna creatic tissue versus calcific focus in adjacent subcentimeter lymph node. SPLEEN: No significant abnormality is seen. ADRENALS: No significant abnormality is seen. KIDNEYS: Several scattered benign-appearing thin-walled cysts throughout both kidneys are present. Sy mmetric cortical medullary uptake and excretion without hydronephrosis seen bilaterally. BOWEL: Stable small size hiatal hernia. PROSTATE/SEMINAL VESICLES: Mildly enlarged prostate bulging on bladder base. LYMPH NODES: No greater than 1cm abdominal or pelvic lymph nodes are appreciated. OSSEOUS STRUCTURES: Slight underlying scoliotic curvature. Moderate to severe disc space narrowing le ft L5-S1 level. Multilevel vacuum disc phenomenon along with [id number] disc space narrowing an d spurring throughout the lumbar spine. Subtle spondylolisthesis L1-L2 level redemonstrated. OTHER: Persistent moderate to large size right inguinal hernia containing portion of contrast filled small bowel loop. No suspicious dilatation to suggest obstruction. No significant change from prior. IMPRESSION: 1. Stable moderate to large size right inguinal hernia containing portion of ileum without obstructio n. 2. Multiple large gallstones within gallbladder redemonstrated without secondary CT evidence for acut e cholecystitis.
== END | disposition home or self-care (01) ==
LOC: RADCTMAIN 08:53
PROVIDERS: ATTEND Family Medicine
DX: K40.90 Unilateral inguinal hernia, without obstruction or gangrene, not specified as recurrent (principal); K80.20 Calculus of gallbladder without cholecystitis without obstruction
CPT/HCPCS: 82565; 84520; 74177; 36415; Q9967

== ENCOUNTER → 2021-06-11 | Outpatient (CLI) | payer MEDICARE, BC ==
--- NOTE | 2021-06-12 09:04 | US ---
EXAMINATION TYPE: US arterial LE single level DATE OF EXAM: 06/11/2021 10:59 AM Comparison: 2019 CLINICAL HISTORY: I73.9 PERIPHERAL VASCULAR DISEASE UNSPECIFIED. Peripheral vascular disease per trish ash. Hx hypertension, prior smoker, claudication bilaterally. Right brachial pressure deferred- patient fell and injured right arm. Doppler Waveforms: Right: Multiphasic to biphasic Dorsalis pedis and posterior tibial appear more monophasic. Left: Multiphasic. Dorsalis pedis appears biphasic. Posterior tibial appears monophasic. Pressure Gradients: Ankle-Brachial Indices: Right: 1.12 Left: 1.09 Toe Brachial Indices: Right: 0.51 Left: 0.59 IMPRESSION: 1. STEPHANIE within normal limits 2. Toe brachial indices are abnormal correlate for claudication. 3. Abnormal waveforms within the infrapopliteal vasculature as noted above.
== END | disposition home or self-care (01) ==
LOC: RADUSWWP 09:30
PROVIDERS: ATTEND Family Medicine
DX: I73.9 Peripheral vascular disease, unspecified (principal)
CPT/HCPCS: 93922

== ENCOUNTER 2021-08-04 06:23 | Day surgery (SDC) | payer MEDICARE, BC ==
[2021-07-31 15:59] VITALS: BMI 23.9
[~2021-08-04 06:23] MED LIST changes: +ACETAMINOPHEN TAB 500 MG TAB PO PRN; +DEXAMETHASONE SOD PHOSPHATE 4 MG/ML 1 ML VIAL IV ONE; +HEPARIN SODIUM,PORCINE/PF 5,000 UNIT/0.5 ML SYRINGE SQ PRN; +LACTATED RINGERS 1,000 ML IV SCH; +LIDOCAINE 1% (10MG/ML) FOR IV START INTRADERMA PRN; -LIDOCAINE 1% INJ 10MG/ML (20 ML MDV) SQ ONE; +MIDAZOLAM 2 MG/2 ML VIAL IV PRN; +ONDANSETRON 4 MG/2 ML VIAL IVP ONE
[2021-08-04] MEDS ORDERED: HYDROmorphone 0.5 MG/0.5 ML SYRINGE IVP PRN (07:00)
[2021-08-04] MEDS ORDERED: BUPIVACAIN-EPI 0.25%-1:200,000 30 ML VIAL SQ ONE ×2 (07:22→08:11)
[2021-08-04 07:32] LABS: Basophils % (A) 1 %; Eosinophils # (A) 0.2 k/uL (0-0.7); Eosinophils % (A) 3 %; HCT 36.7 % (39.0-53.0); Lymphocytes % (A) 18 %; MCH 31.2 pg (25.0-35.0); MCHC 32.8 g/dL (31.0-37.0); Mean Platelet Volume 8.3; Monocytes # (A) 0.4 k/uL (0-1.0); Monocytes % (A) 7 %; Neutrophils # (A) 3.8 k/uL (1.3-7.7); Neutrophils % (A) 70 %; Platelet Count 190 k/uL (150-450); RBC 3.86 m/uL (4.30-5.90); RDW 11.8 % (11.5-15.5); WBC 5.5 k/uL (3.8-10.6)
[2021-08-04] MEDS ORDERED: fentaNYL (PF) 50 MCG/ML 2 ML AMP ONE (07:48)
[2021-08-04] MEDS ORDERED: NEOSTIGMINE 1 MG/ML 10 ML VIAL ONE (07:48)
[2021-08-04] MEDS ORDERED: PROPOFOL 10 MG/ML 20 ML VIAL IV ONE (07:48)
[2021-08-04] MEDS ORDERED: MIDAZOLAM 2 MG/2 ML VIAL ONE (07:48)
[2021-08-04] MEDS ORDERED: SUCCINYLCHOLINE CHLORIDE 100 MG/5 ML SYR IV ONE (07:48)
[2021-08-04] MEDS ORDERED: LIDOCAINE 2% INJ 20 MG/ML (2 ML VIAL) ONE (07:48)
[2021-08-04] MEDS ORDERED: KETOROLAC 15 MG/ML 1 ML VIAL ONE (07:48)
[2021-08-04] MEDS ORDERED: ROCURONIUM 10 MG/ML (5 ML VIAL) IV ONE (07:48)
[2021-08-04] MEDS ORDERED: GLYCOPYRROLATE 0.2 MG/ML 2 ML VIAL ONE (07:48)
[2021-08-04 07:52] LABS: ALT 17 U/L (4-49); AST 23 U/L (17-59); African American GFR (CKD) >90 (>60 ml/min/1.73 sqM); Albumin 4.2 g/dL (3.5-5.0); Alkaline Phosphatase 83 U/L (38-126); Anion Gap 6 mmol/L; Blood Urea Nitrogen 12 mg/dL (9-20); Calcium 9.7 mg/dL (8.4-10.2); Carbon Dioxide 29 mmol/L (22-30); Chloride 94 mmol/L (98-107); Glucose 111 mg/dL (74-99); Non-African American GFR(CKD) >90 (>60 ml/min/1.73 sqM); Potassium 4.3 mmol/L (3.5-5.1); Sodium 129 mmol/L (137-145); Total Bilirubin 0.6 mg/dL (0.2-1.3); Total Protein 6.8 g/dL (6.3-8.2)
--- NOTE | 2021-08-04 08:38 | P.GSHP ---
History of Present Illness H&P Date: 08/04/21 Chief Complaint: Right Upper pain This is a 6-year-old male presents today for laparoscopic cholestatic. Patient has had with rectal pain. He is found to have cholelithiasis. Past Medical History Past Medical History: Atrial Fibrillation, Asthma, Hypertension, Pneumonia Additional Past Medical History / Comment(s): hx cellulitis and wound rt heel, glaucoma, hx migraine, gallstones, eczema, History of Any Multi-Drug Resistant Organisms: None Reported Past Surgical History: Heart Catheterization Additional Past Surgical History / Comment(s): colonoscopies, dex Cataracts Past Anesthesia/Blood Transfusion Reactions: No Reported Reaction Smoking Status: Former smoker - Past Family History Sister(s) Family Medical History: Cancer Additional Family Medical History / Comment(s): colon Brother(s) Family Medical History: Cancer Additional Family Medical History / Comment(s): colon Medications and Allergies Home Medications Medication Instructions Recorded Confirmed Type Latanoprost Ophth [Xalatan 0.005%] 1 drops BOTH EYES HS 03/30/17 07/31/21 History atenoloL [Tenormin] 25 mg PO DAILY 03/30/17 07/31/21 History Albuterol Inhaler [Ventolin Hfa 1 puff INHALATION RT-QID PRN 02/08/20 07/31/21 History Inhaler] Albuterol Nebulized [Ventolin 2.5 mg INHALATION RT-Q6H PRN 05/24/20 07/31/21 History Nebulized] Ascorbic Acid [Vitamin C] 500 mg PO DAILY 05/24/20 07/31/21 History hydroCHLOROthiazide [Hydrodiuril] 25 mg PO DAILY 05/24/20 07/31/21 History Cholecalciferol [Vitamin D3 (25 25 mcg PO DAILY 07/31/21 07/31/21 History Mcg = 1000 Iu)] Dabigatran Etexilate Mesylate 75 mg PO BID 07/31/21 07/31/21 History [Pradaxa] Fluticasone Propion/Salmeterol 1 inhalation PO BID 07/31/21 07/31/21 History [Wixela 250-50 Inhub] Losartan Potassium 100 mg PO QAM 07/31/21 07/31/21 History Allergies Allergy/AdvReac Type Severity Reaction Status Date / Time codeine Allergy MOUTH Verified 08/04/21 06:48 SWELLING Penicillins Allergy facial Verified 08/04/21 06:48 swelling Surgical - Exam Vital Signs Temp Pulse Resp BP Pulse Ox 98.1 F 64 16 178/72 99 08/04/21 07:10 08/04/21 07:10 08/04/21 07:10 08/04/21 07:10 08/04/21 07:10 - General well developed, well nourished, no distress - Eyes PERRL - ENT normal pinna - Neck no masses - Respiratory normal expansion - Cardiovascular Rhythm: regular - Abdomen Abdomen: soft, non tender Results - Labs 08/04/21 07:10 08/04/21 07:10 Abnormal Lab Results - Last 24 Hours (Table) 08/04/21 08/04/21 Range/Units 07:10 07:10 RBC 3.86 L (4.30-5.90) m/uL Hgb 12.0 L (13.0-17.5) gm/dL Hct 36.7 L (39.0-53.0) % Sodium 129 L (137-145) mmol/L Chloride 94 L (98-107) mmol/L Creatinine 0.62 L (0.66-1.25) mg/dL Glucose 111 H (74-99) mg/dL Diabetes panel 08/04/21 Range/Units 07:10 Sodium 129 L (137-145) mmol/L Potassium 4.3 (3.5-5.1) mmol/L Chloride 94 L (98-107) mmol/L Carbon Dioxide 29 (22-30) mmol/L BUN 12 (9-20) mg/dL Creatinine 0.62 L (0.66-1.25) mg/dL Glucose 111 H (74-99) mg/dL Calcium 9.7 (8.4-10.2) mg/dL AST 23 (17-59) U/L ALT 17 (4-49) U/L Alkaline Phosphatase 83 (38-126) U/L Total Protein 6.8 (6.3-8.2) g/dL Albumin 4.2 (3.5-5.0) g/dL Calcium panel 08/04/21 Range/Units 07:10 Calcium 9.7 (8.4-10.2) mg/dL Albumin 4.2 (3.5-5.0) g/dL Pituitary panel 08/04/21 Range/Units 07:10 Sodium 129 L (137-145) mmol/L Potassium 4.3 (3.5-5.1) mmol/L Chloride 94 L (98-107) mmol/L Carbon Dioxide 29 (22-30) mmol/L BUN 12 (9-20) mg/dL Creatinine 0.62 L (0.66-1.25) mg/dL Glucose 111 H (74-99) mg/dL Calcium 9.7 (8.4-10.2) mg/dL Adrenal panel 08/04/21 Range/Units 07:10 Sodium 129 L (137-145) mmol/L Potassium 4.3 (3.5-5.1) mmol/L Chloride 94 L (98-107) mmol/L Carbon Dioxide 29 (22-30) mmol/L BUN 12 (9-20) mg/dL Creatinine 0.62 L (0.66-1.25) mg/dL Glucose 111 H (74-99) mg/dL Calcium 9.7 (8.4-10.2) mg/dL Total Bilirubin 0.6 (0.2-1.3) mg/dL AST 23 (17-59) U/L ALT 17 (4-49) U/L Alkaline Phosphatase 83 (38-126) U/L Total Protein 6.8 (6.3-8.2) g/dL Albumin 4.2 (3.5-5.0) g/dL Assessment and Plan Assessment: Right upper quadrant pain Cholelithiasis We'll perform laparoscopic cholecystectomy.
--- NOTE | 2021-08-04 08:40 | P.OP ---
Date of Procedure: 08/04/21 Preoperative Diagnosis: Cholecystitis Postoperative Diagnosis: Cholecystitis Cholelithiasis Procedure(s) Performed: Laparoscopic cholecystectomy Anesthesia: RODGER Surgeon: Prosper Ness Estimated Blood Loss (ml): 5 Pathology: other (Gallbladder) Condition: stable Disposition: PACU Description of Procedure: The patient was placed on the operating table. The patient received a general endotracheal tube anesthesia. The patients abdomen was prepped and draped in the usual sterile fashion. Through an infraumbilical stab incision, the fascia of the anterior abdominal wall was grasped with a pair of Kochers and then the Veress needle was placed in the peritoneal cavity. Position of the Veress needle was confirmed with positive drop test. The abdomen was then insufflated. After adequate insufflation, the 10 mm trocar was placed in the peritoneal cavity. Following this the laparoscope was placed in the peritoneal cavity. The patient was placed in the head-up, right side up position and then a 5 mm trocar was placed in the right lateral and right subcostal position under direct visualization. A 8 mm trocar was placed in the epigastric position. The gallbladder was grasped in the fundus and infundibulum. Traction on the gallbladder was placed in the lateral and the cephalad positions. The triangle of Calot was visualized.. The cystic duct was bluntly dissected until the union of the cystic duct and common bile duct was seen. A critical view of safety was achieved. The cystic duct was then divided and sealed with the Harmonic scissors. A PDS Endoloop was then placed throughout the cystic duct stump. The cystic artery divided and sealed with the Harmonic scissors. The gallbladder was then removed from the liver bed using Harmonic scissors. The gallbladder was then extracted through the epigastric port site. Operative field was checked for any bleeding spots and Harmonic scissors was used to coagulate the liver bed. The abdomen was irrigated. The trocars were removed. The skin was closed using interrupted 3-0 Vicryl suture. Dermabond dressing were applied. The patient tolerated the procedure well.
[2021-08-04 08:43] VITALS: TEMP 97.1
[2021-08-04 11:25] VITALS: BP 162/70; PULSE 48; RESP 14
== END 2021-08-04 11:57 | disposition home or self-care (01) ==
LOC: OR 06:23
PROVIDERS: ATTEND Surgery
DX: K80.12 Calculus of gallbladder with acute and chronic cholecystitis without obstruction (principal)
CPT/HCPCS: 47562; 88304; 80053; 85025; J2250; J1100; J2710; J0690; J2405; J3010; J1885; J0330; J2704; J1644; J2001

== ENCOUNTER → 2021-08-18 | Outpatient (CLI) | payer MEDICARE, BC ==
[2021-08-18 18:04] LABS: Basophils # (A) 0.03 X 10*3/uL (0.00-0.10); Basophils % (A) 0.6 %; Eosinophils # (A) 0.12 X 10*3/uL (0.04-0.35); Eosinophils % (A) 2.3 %; HCT 31.9 % (39.6-50.0); HGB 10.4 g/dL (13.0-17.0); Immature Grans, Automated 0.6 %; Lymphocytes # (A) 1.01 X 10*3/uL (0.90-5.00); Lymphocytes % (A) 19.3 %; MCH 30.5 pg (27.0-32.0); MCHC 32.6 g/dL (32.0-37.0); MCV 93.5 fL (80.0-97.0); Mean Platelet Volume 10.4 fL (9.5-12.2); Monocytes % (A) 9.6 %; NRBC Per 100 WBC 0 /100 WBCS (0.0-0.0); Neutrophils # (A) 3.53 X 10*3/uL (1.80-7.70); Neutrophils % (A) 67.6 %; Platelet Count 212 X 10*3/uL (140-440); RBC 3.41 X 10*6/uL (4.40-5.60); RDW 12.2 % (11.5-14.5); WBC 5.22 X 10*3/uL (4.50-10.00)
== END | disposition home or self-care (01) ==
LOC: LABPAT 14:20
PROVIDERS: ATTEND Surgery
DX: Z01.812 Encounter for preprocedural laboratory examination (principal); K40.91 Unilateral inguinal hernia, without obstruction or gangrene, recurrent
CPT/HCPCS: 85025

== ENCOUNTER 2021-08-25 06:30 | Day surgery (SDC) | payer MEDICARE, BC ==
[~2021-08-25 06:30] MED LIST changes: +HYDROmorphone 0.5 MG/0.5 ML SYRINGE IVP PRN
[2021-08-25 07:25] LABS: ALT 21 U/L (4-49); African American GFR (CKD) >90 (>60 ml/min/1.73 sqM); Albumin 4.3 g/dL (3.5-5.0); Anion Gap 11 mmol/L; Blood Urea Nitrogen 12 mg/dL (9-20); Calcium 9.3 mg/dL (8.4-10.2); Carbon Dioxide 19 mmol/L (22-30); Chloride 98 mmol/L (98-107); Glucose 113 mg/dL (74-99); Non-African American GFR(CKD) >90 (>60 ml/min/1.73 sqM); Sodium 128 mmol/L (137-145); Total Bilirubin 0.7 mg/dL (0.2-1.3)
[2021-08-25 07:50] LABS: Potassium 4.8 mmol/L (3.5-5.1)
[2021-08-25 07:51] LABS: AST 32 U/L (17-59); Alkaline Phosphatase 93 U/L (38-126)
[2021-08-25] MEDS ORDERED: NEOSTIGMINE 1 MG/ML 10 ML VIAL ONE (07:54)
[2021-08-25] MEDS ORDERED: SUCCINYLCHOLINE CHLORIDE 100 MG/5 ML SYR IV ONE (07:54)
[2021-08-25] MEDS ORDERED: LIDOCAINE 2% INJ 20 MG/ML (2 ML VIAL) ONE (07:54)
[2021-08-25] MEDS ORDERED: PROPOFOL 10 MG/ML 20 ML VIAL IV ONE (07:54)
[2021-08-25] MEDS ORDERED: fentaNYL (PF) 50 MCG/ML 2 ML AMP ONE (07:54)
[2021-08-25] MEDS ORDERED: GLYCOPYRROLATE 0.2 MG/ML 2 ML VIAL ONE (07:54)
[2021-08-25] MEDS ORDERED: ROCURONIUM 10 MG/ML (5 ML VIAL) IV ONE (07:54)
[2021-08-25] MEDS ORDERED: KETOROLAC 15 MG/ML 1 ML VIAL ONE (07:54)
[2021-08-25] MEDS ORDERED: BUPIVACAIN-EPI 0.25%-1:200,000 30 ML VIAL SQ ONE (08:17)
[2021-08-25] MEDS ORDERED: SODIUM CHLORIDE 0.9% 50 ML with ceFAZolin 2,000 MG IV ONE ×4 (08:18)
[2021-08-25 09:15] VITALS: TEMP 96.8
--- NOTE | 2021-08-25 09:15 | P.GSHP ---
History of Present Illness H&P Date: 08/25/21 Chief Complaint: Right inguinal hernia This a 6-year-old male developed a large radial hernia. Patient notes today for laparoscopic robotic-assisted repair. Past Medical History Past Medical History: Atrial Fibrillation, Asthma, Hypertension, Osteoarthritis (OA) Additional Past Medical History / Comment(s): cellulitis and wound rt heel, hx. colon polyps, GERD, glaucoma, borderline diabetes mellitus History of Any Multi-Drug Resistant Organisms: None Reported Past Surgical History: Cholecystectomy, Heart Catheterization Additional Past Surgical History / Comment(s): colonoscopies, Cataracts Past Anesthesia/Blood Transfusion Reactions: No Reported Reaction Smoking Status: Former smoker - Past Family History Sister(s) Family Medical History: Cancer Additional Family Medical History / Comment(s): colon Brother(s) Family Medical History: Cancer Additional Family Medical History / Comment(s): colon Medications and Allergies Home Medications Medication Instructions Recorded Confirmed Type Latanoprost Ophth [Xalatan 0.005%] 1 drops BOTH EYES HS 03/30/17 08/25/21 History atenoloL [Tenormin] 25 mg PO DAILY 03/30/17 08/25/21 History Albuterol Inhaler [Ventolin Hfa 1 puff INHALATION RT-QID PRN 02/08/20 08/25/21 History Inhaler] Albuterol Nebulized [Ventolin 2.5 mg INHALATION RT-Q6H PRN 05/24/20 08/20/21 History Nebulized] Ascorbic Acid [Vitamin C] 500 mg PO DAILY 05/24/20 08/25/21 History hydroCHLOROthiazide [Hydrodiuril] 25 mg PO DAILY 05/24/20 08/25/21 History Cholecalciferol [Vitamin D3 (25 25 mcg PO DAILY 07/31/21 08/25/21 History Mcg = 1000 Iu)] Dabigatran Etexilate Mesylate 75 mg PO BID 07/31/21 08/25/21 History [Pradaxa] Fluticasone Propion/Salmeterol 1 inhalation PO BID 07/31/21 08/25/21 History [Wixela 250-50 Inhub] Losartan Potassium 100 mg PO QAM 07/31/21 08/25/21 History Docusate [Colace] 100 mg PO BID #20 capsule 08/04/21 08/25/21 Rx Acetaminophen Tab [Tylenol] 650 mg PO Q6H PRN 08/20/21 08/25/21 History Allergies Allergy/AdvReac Type Severity Reaction Status Date / Time codeine Allergy MOUTH Verified 08/25/21 06:47 SWELLING Penicillins Allergy facial Verified 08/25/21 06:47 swelling Surgical - Exam Vital Signs Temp Pulse Resp BP Pulse Ox 97.6 F 62 16 177/80 99 08/25/21 06:53 08/25/21 06:53 08/25/21 06:53 08/25/21 06:53 08/25/21 06:53 - General well developed, well nourished, no distress - Eyes PERRL - ENT normal pinna - Neck no masses - Respiratory normal expansion - Abdomen Abdomen: soft Hernia: inguinal (Right inguinal hernia) Results - Labs 08/25/21 07:04 Abnormal Lab Results - Last 24 Hours (Table) 08/25/21 Range/Units 07:04 Sodium 128 L (137-145) mmol/L Carbon Dioxide 19 L (22-30) mmol/L Creatinine 0.57 L (0.66-1.25) mg/dL Glucose 113 H (74-99) mg/dL Diabetes panel 08/25/21 Range/Units 07:04 Sodium 128 L (137-145) mmol/L Potassium 4.8 (3.5-5.1) mmol/L Chloride 98 (98-107) mmol/L Carbon Dioxide 19 L (22-30) mmol/L BUN 12 (9-20) mg/dL Creatinine 0.57 L (0.66-1.25) mg/dL Glucose 113 H (74-99) mg/dL Calcium 9.3 (8.4-10.2) mg/dL AST 32 (17-59) U/L ALT 21 (4-49) U/L Alkaline Phosphatase 93 (38-126) U/L Total Protein 7.0 (6.3-8.2) g/dL Albumin 4.3 (3.5-5.0) g/dL Calcium panel 08/25/21 Range/Units 07:04 Calcium 9.3 (8.4-10.2) mg/dL Albumin 4.3 (3.5-5.0) g/dL Pituitary panel 08/25/21 Range/Units 07:04 Sodium 128 L (137-145) mmol/L Potassium 4.8 (3.5-5.1) mmol/L Chloride 98 (98-107) mmol/L Carbon Dioxide 19 L (22-30) mmol/L BUN 12 (9-20) mg/dL Creatinine 0.57 L (0.66-1.25) mg/dL Glucose 113 H (74-99) mg/dL Calcium 9.3 (8.4-10.2) mg/dL Adrenal panel 08/25/21 Range/Units 07:04 Sodium 128 L (137-145) mmol/L Potassium 4.8 (3.5-5.1) mmol/L Chloride 98 (98-107) mmol/L Carbon Dioxide 19 L (22-30) mmol/L BUN 12 (9-20) mg/dL Creatinine 0.57 L (0.66-1.25) mg/dL Glucose 113 H (74-99) mg/dL Calcium 9.3 (8.4-10.2) mg/dL Total Bilirubin 0.7 (0.2-1.3) mg/dL AST 32 (17-59) U/L ALT 21 (4-49) U/L Alkaline Phosphatase 93 (38-126) U/L Total Protein 7.0 (6.3-8.2) g/dL Albumin 4.3 (3.5-5.0) g/dL Assessment and Plan Assessment: Right inguinal hernia. We'll perform laparoscopic robotic assistance repair.
--- NOTE | 2021-08-25 09:17 | P.OP ---
Date of Procedure: 08/25/21 Preoperative Diagnosis: Right inguinal hernia Postoperative Diagnosis: Bilateral inguinal hernia Procedure(s) Performed: Transversus abdominis plane block Laparoscopic robotic cyst repair of bilateral inguinal hernia Anesthesia: RODGER Surgeon: Prosper Ness Estimated Blood Loss (ml): 5 Pathology: none sent Condition: stable Disposition: PACU Description of Procedure: The patient's placed on the operating table in the supine position. The patient received general anesthesia. The patient's abdomen was prepped and draped in usual sterile fashion. The skin was anesthetized 1% local Xylocaine at the incision sites. Using an 11 blade a skin incision was made at the umbilicus. The fascia was grasped with a Becky and then the peritoneal cavity was entered with the Veress needle. Position of the Veress needle was confirmed with a positive drop test. After adequate insufflation a 5 mm trocar was placed into the peritoneal cavity.. A four-quadrant transversus abdominis plane block was performed 1% local Xylocaine. The Laparoscope was placed the peritoneal cavity. And a robotic 8 mm trocar was placed in the right lateral position and then another 8 mm robotic trochars placed in the left lateral position. The original 5 mm trocar was exchanged for a 12 mm trocar. The patient was placed in reverse Trendelenburg and then the patient was docked to the robot. Next the peritoneum over top of the right inguinal hernia was incised and then using blunt and sharp dissection and electrocautery the hernia sac was dissected free from the floor of the inguinal canal. The hernia sac was completely reduced into the peritoneal cavity. And then using the Pro wheel braider mesh the hernia was repaired. The peritoneum was then sutured with 20V lock suture. Next the peritoneum over top of the left inguinal hernia was incised and then using blunt and sharp dissection and electrocautery the hernia sac was dissected free from the floor of the inguinal canal. The hernia sac was completely reduced into the peritoneal cavity. And then using the Pro wheel braider mesh the hernia was repaired. The peritoneum was then sutured with 20V lock suture. The patient was then undocked the robot. The needle was withdrawn from the peritoneal cavity. The umbilical trocar site was closed with 0 Ethibond suture. The skin was closed interrupted 3-0 Monocryl suture. Dermabond dressing was applied. Patient was sent to recovery in stable condition.
[2021-08-25 09:28] VITALS: RESP 16
[2021-08-25] MEDS ORDERED: hydrALAZINE HCL 20 MG/ML 1 ML VIAL IVP ONE (09:37)
[2021-08-25 11:25] VITALS: BP 159/70; PULSE 65
== END 2021-08-25 11:26 | disposition home or self-care (01) ==
LOC: OR 06:30
PROVIDERS: ATTEND Surgery
DX: K40.20 Bilateral inguinal hernia, without obstruction or gangrene, not specified as recurrent (principal); I48.91 Unspecified atrial fibrillation; J45.909 Unspecified asthma, uncomplicated; I10 Essential (primary) hypertension; M19.90 Unspecified osteoarthritis, unspecified site; Z86.010 Personal history of colon polyps; K21.9 Gastro-esophageal reflux disease without esophagitis; R73.03 Prediabetes; H40.9 Unspecified glaucoma; Z90.49 Acquired absence of other specified parts of digestive tract; Z87.891 Personal history of nicotine dependence; Z80.0 Family history of malignant neoplasm of digestive organs; Z79.899 Other long term (current) drug therapy; Z79.01 Long term (current) use of anticoagulants; Z79.51 Long term (current) use of inhaled steroids; Z88.5 Allergy status to narcotic agent; I25.10 Atherosclerotic heart disease of native coronary artery without angina pectoris
CPT/HCPCS: 86900; 86901; 80053; 86850; 49650; C1781 ×2; J0360; J1100; J2710; J2405; J0690; J3010; J1885; J0330; J2704; J1170; J1644; J2001

== ENCOUNTER 2022-03-22 20:44 | Emergency (ER) | payer MEDICARE, BC ==
[2022-03-22 20:51] VITALS: RESP 16
[2022-03-22] MEDS ORDERED: ACETAMINOPHEN TAB 325 MG TAB PO STA (21:05)
[2022-03-22] MEDS ORDERED: SODIUM CHLORIDE 0.9% 500 ML 500 ML IV STA (21:05)
[2022-03-22 22:02] LABS: Basophils % (A) 0 %; Eosinophils # (A) 0.1 k/uL (0-0.7); Eosinophils % (A) 1 %; HCT 36.5 % (39.0-53.0); HGB 12.8 gm/dL (13.0-17.5); Lymphocytes # (A) 0.9 k/uL (1.0-4.8); Lymphocytes % (A) 18 %; MCHC 35.1 g/dL (31.0-37.0); MCV 91.3 fL (80.0-100.0); Monocytes # (A) 0.3 k/uL (0-1.0); Monocytes % (A) 6 %; Neutrophils # (A) 3.9 k/uL (1.3-7.7); Neutrophils % (A) 74 %; Platelet Count 235 k/uL (150-450); RDW 12.2 % (11.5-15.5); WBC 5.3 k/uL (3.8-10.6)
--- NOTE | 2022-03-22 22:09 | XR ---
EXAMINATION TYPE: XR chest 2V DATE OF EXAM: 03/22/2022 COMPARISON: 05/24/2020 HISTORY: Trauma. Pain TECHNIQUE: FINDINGS: Heart is normal. Lungs are clear of consolidation. Diaphragm is normal. Bony thorax is inta ct IMPRESSION: No active cardiopulmonary disease. No adverse change.
[2022-03-22 22:14] LABS: INR 1.1 (<1.2); Partial Thromboplastin Time 33.9 sec (22.0-30.0); Prothrombin Time 11.5 sec (9.0-12.0)
--- NOTE | 2022-03-22 22:16 | XR ---
EXAMINATION TYPE: XR pelvis AP view DATE OF EXAM: 03/22/2022 COMPARISON: NONE HISTORY: Fall. Pain TECHNIQUE: Single view FINDINGS: The pelvic ring is intact. Sacroiliac joints are intact. No fracture. Proximal femurs are i ntact. IMPRESSION: No acute abnormality of the pelvis.
--- NOTE | 2022-03-22 22:26 | CT ---
EXAMINATION TYPE: CT brain scot hobson DATE OF EXAM: 03/22/2022 COMPARISON: None HISTORY: fall laceration to posterior head CT DLP: 1281.2 mGycm Automated exposure control for dose reduction was used. Images of the brain and cervical spine obtained with no contrast. There is cerebral cortical atrophy. There is no mass effect or midline shift. No sign of intracranial hemorrhage. The calvarium is intact. There is some scalp soft tissue swelling in the right midline o ccipital region. Cervical vertebra have fairly normal spacing and alignment. There is anterior hypertrophic bridging o steophyte formation C3-C7 level. Facet joints are intact. There is mild hypertrophic cervical facet a rthropathy. No compression fracture. There is vascular calcification. IMPRESSION: Cerebral atrophy. No acute intracranial abnormality. Mild multilevel cervical hypertrophic degenerative disc changes. No fracture seen. Small occipital sc alp hematoma noted.
[2022-03-22 22:28] LABS: ALT 38 U/L (4-49); AST 38 U/L (17-59); African American GFR (CKD) >90 (>60 ml/min/1.73 sqM); Albumin 4.6 g/dL (3.5-5.0); Alkaline Phosphatase 75 U/L (38-126); Anion Gap 6 mmol/L; Blood Urea Nitrogen 14 mg/dL (9-20); Calcium 9.8 mg/dL (8.4-10.2); Carbon Dioxide 28 mmol/L (22-30); Chloride 91 mmol/L (98-107); Glucose 107 mg/dL (74-99); Non-African American GFR(CKD) >90 (>60 ml/min/1.73 sqM); Potassium 4.2 mmol/L (3.5-5.1); Sodium 125 mmol/L (137-145); Total Bilirubin 0.8 mg/dL (0.2-1.3); Total Protein 7.1 g/dL (6.3-8.2)
--- NOTE | 2022-03-22 22:34 | ED ---
General Adult HPI <Kathleen Dumas - Last Filed: 03/22/22 22:40> - General Source: patient, family, RN notes reviewed, old records reviewed Mode of arrival: ambulatory Limitations: no limitations <Estevan Fleming - Last Filed: 03/22/22 23:14> - General Chief complaint: Fall Stated complaint: Fall/head laceration Time Seen by Provider: 03/22/22 20:56 - History of Present Illness Initial comments: Patient is an 86 year old male with past medical history remarkable for hypertension, atrial fibrillation on attacks, asthma who presents emergency Department complaining status post fall. Patient states she is standing up from a chair, and he was using the arm for support, however a shirt was on the arm of the chair and slid off causing him to lose his balance and he fell backwards striking the back of his head on the nightstand. Denies loss of consciousness. Denies any other injuries. Denies back pain, chest pain, abdominal pain, nausea, vomiting. Denies any weakness or numbness. Denies any blurry vision. This is some bleeding over the back of his head. Presents for further evaluatio n at this time. Does have a history of chronic hyponatremia. (Estevan Fleming) - Related Data Home Medications Medication Instructions Recorded Confirmed Latanoprost Ophth [Xalatan 0.005%] 1 drops BOTH EYES HS 03/30/17 08/25/21 atenoloL [Tenormin] 25 mg PO DAILY 03/30/17 08/25/21 Albuterol Inhaler [Ventolin Hfa 1 puff INHALATION RT-QID PRN 02/08/20 08/25/21 Inhaler] Albuterol Nebulized [Ventolin 2.5 mg INHALATION RT-Q6H PRN 05/24/20 08/20/21 Nebulized] Ascorbic Acid [Vitamin C] 500 mg PO DAILY 05/24/20 08/25/21 hydroCHLOROthiazide [Hydrodiuril] 25 mg PO DAILY 05/24/20 08/25/21 Cholecalciferol [Vitamin D3 (25 25 mcg PO DAILY 07/31/21 08/25/21 Mcg = 1000 Iu)] Dabigatran Etexilate Mesylate 75 mg PO BID 07/31/21 08/25/21 [Pradaxa] Fluticasone Propion/Salmeterol 1 inhalation PO BID 07/31/21 08/25/21 [Wixela 250-50 Inhub] Losartan Potassium 100 mg PO QAM 07/31/21 08/25/21 Acetaminophen Tab [Tylenol] 650 mg PO Q6H PRN 08/20/21 08/25/21 Previous Rx's Medication Instructions Recorded Docusate [Colace] 100 mg PO BID #20 capsule 08/04/21 Acetaminophen Tab [Tylenol] 650 mg PO Q6H #30 tab 08/25/21 Docusate [Colace] 100 mg PO BID #20 capsule 08/25/21 Ibuprofen [Motrin] 600 mg PO Q6HR PRN #40 tab 08/25/21 oxyCODONE HCL [OxyIR] 5 mg PO Q6H PRN 3 Days #10 tab 08/25/21 Allergies Allergy/AdvReac Type Severity Reaction Status Date / Time codeine Allergy MOUTH Verified 08/25/21 06:47 SWELLING Penicillins Allergy facial Verified 08/25/21 06:47 swelling Review of Systems ROS Other: All systems not noted in ROS Statement are negative. <Kathleen Dumas - Last Filed: 03/22/22 22:40> ROS Other: All systems not noted in ROS Statement are negative. <Estevan Fleming - Last Filed: 03/22/22 23:14> ROS Statement: Those systems with pertinent positive or pertinent negative responses have been documented in the HPI. Review of Systems: CONST: Denies fever EYES: Denies blurry vision ENT: Denies nasal congestion C/V: Denies Chest pain RESP: Denies shortness of breath GI: Denies abdominal pain : Denies dysuria SKIN: Endorses scalp laceration MSK: Denies joint pain. NEURO: Denies headache (Estevan Fleming) Past Medical History Past Medical History: Atrial Fibrillation, Asthma, Hypertension, Osteoarthritis (OA) Additional Past Medical History / Comment(s): cellulitis and wound rt heel, hx. colon polyps, GERD, glaucoma, borderline diabetes mellitus History of Any Multi-Drug Resistant Organisms: None Reported Past Surgical History: Heart Catheterization Additional Past Surgical History / Comment(s): colonoscopies, Cataracts Past Anesthesia/Blood Transfusion Reactions: No Reported Reaction Past Psychological History: No Psychological Hx Reported Smoking Status: Never smoker - Past Family History Sister(s) Family Medical History: Cancer Additional Family Medical History / Comment(s): colon Brother(s) Family Medical History: Cancer Additional Family Medical History / Comment(s): colon <Estevan Fleming - Last Filed: 03/22/22 23:14> General Exam Limitations: no limitations <Estevan Fleming - Last Filed: 03/22/22 23:14> - General Exam Comments Initial Comments: General: Appears in no acute distress. HEAD: Normal with no signs of head trauma. Negative garcia sign. Negative raccoon eyes. EYES: PERRLA, EOMI, conjunctiva normal, no discharge. Pupils 3 mm and equal bilaterally. ENT: Hearing grossly intact, normal oropharynx. RESPIRATORY: Clear breath sounds bilaterally. No wheezes, rales, or rhonchi. C/V: Regular rate and rhythm. S1 and S2 auscultated, no edema, peripheral pulses 2+ and intact throughout ABD: Abd is soft, nontender, nondistended EXT: Normal range of motion, no obvious deformity. Pelvis is stable. No midline cervical, thoracic, lumbar spine tenderness to palpation. SKIN: Approximately 2 inch linear laceration located the posterior superior scalp. Will require danica. NEURO: Alert and oriented 4. GCS 15. NIH is 0. (Estevan Fleming) Course Vital Signs 03/22/22 03/22/22 03/22/22 20:47 21:34 22:41 Temperature 98 F 98.1 F Pulse Rate 62 73 72 Respiratory 16 16 Rate Blood Pressure 205/85 191/93 O2 Sat by Pulse 100 98 Oximetry Procedures - Laceration Laceration #1 Consent Obtained: verbal consent Indication: laceration Site: scalp Size (cm): 3 Description: linear Depth: simple, single layer Size of Sutures: other (danica) Number of Sutures: 3 Patient Tolerated Procedure: well, no complications <Kathleen Dumas - Last Filed: 03/22/22 22:40> Medical Decision Making - Lab Data Result diagrams: 03/22/22 21:35 03/22/22 21:35 <Kathleen Dumas - Last Filed: 03/22/22 22:40> - Lab Data Result diagrams: 03/22/22 21:35 03/22/22 21:35 <Estevan Fleming - Last Filed: 03/22/22 23:14> - Medical Decision Making Patient is an 86 year old male who presents status post fall with a scalp laceration on antiplatelet medications. He fell from standing. Therefore is not trauma activation. We will obtain CT brain, C-spine as well as chest and pelvis x-ray and basic labs. He was in agreement this plan. He'll be given Tylenol for pain control. Up-to-date on tetanus. He'll receive an IV fluid bolus as well. Patient's laboratory studies are remarkable for chronic hyponatremia of 125. Remainder the labs are within acceptable limits. CT brain shows no acute intracranial process or injury. CT cervical spine reveals no evidence of acute process or injury. Scalp hematoma is noted. Pelvis x-ray shows no acute injury. Chest x-ray shows no acute cardiopulmonary process or injury. On reevaluation, we did discuss his workup. Patient's laceration was stapled shut by RICHARD Goss. We did discuss his hyponatremia and I did offer admission for IV fluids the patient declines as he states he is always hyponatremic. He already received IV fluids at this time. States he will follow-up with his doctor tomorrow. As he is borderline, I do believe this is appropriate but I do want him to have repeat laboratory studies drawn within the next 1-3 days. He was in agreement this plan. We discussed is negative imaging. He'll be discharged home at this time. Patient was in agreement this plan. Patient is mildly hypertensive but he is asymptomatic. I instructed the patient to follow up with their PCP in the next 1-3 days. I explained that the patient should return to the emergency department if they experience any worsening symptoms. Strict return precautions were discussed with the patient. The patient expressed understanding of these instructions. I a nswered all questions that the patient had. The patient was discharged home in good condition with their prescriptions and follow up information. Was pt. sent in by a medical professional or institution (, PA, DRAMA DIRECTOR, urgent care, hospital, or group home...) When possible be specific @ -No Did you speak to anyone other than the patient for history (EMS, parent, family, police, friend...)? What history was obtained from this source @ -No Did you review nursing and triage notes (agree or disagree)? Why? @ -I reviewed and agree with nursing and triage notes Were old charts reviewed (outside hosp., previous admission, EMS record, old EKG, old radiological studies, urgent care reports/EKG's, group home records)? Report findings @ -No old charts were reviewed Differential Diagnosis (chest pain, altered mental status, abdominal pain women, abdominal pain men, vaginal bleeding, weakness, fever, dyspnea, syncope, head ache, dizziness, GI bleed, back pain, seizure, CVA, palpatations, mental health)? @ -Fall, scalp laceration, intracranial injury, cervical spine injury, this list is not all-inclusive. EKG interpreted by me (3pts min.). @ -None done X-rays interpreted by me (1pt min.). @ -Chest x-ray reveals no acute cardiopulmonary process, injury. Pelvis x-ray reveals no acute injury. CT interpreted by me (1pt min.). @ -CT brain and C-spine reveals no acute injuries. Chronic degenerative changes present. U/S interpreted by me (1pt. min.). @ -None done What testing was considered but not performed or refused? (CT, X-rays, U/S, labs)? Why? @ -None What meds were considered but not given or refused? Why? @ -None Did you discuss the management of the patient with other professionals (professionals i.e. , PA, DRAMA DIRECTOR, lab, RT, psych nurse, social work therapist, utilization review rn, teacher, juvenile corrections officer, rn case mgr)? Give summary @ -No Was smoking cessation discussed for >3mins.? @ -No Was critical care preformed (if so, how long)? @ -No Were there social determinants of health that impacted care today? How? (Homelessness, low income, unemployed, alcoholism, drug addiction, transportation, low edu. Level, literacy, decrease access to med. care, nursing home, rehab)? @ -No Was there de-escalation of care discussed even if they declined (Discuss DNR or withdrawal of care, Hospice)? DNR status @ -No What co-morbidities impacted this encounter? (DM, HTN, Smoking, COPD, CAD, Cancer, CVA, ARF, Chemo, Hep., AIDS, mental health diagnosis, sleep apnea, morbid obesity)? @ -Chronic hyponatremia. Patient is on antiplatelet medications. Was patient admitted / discharged? Hospital course, mention meds given and route, prescriptions, significant lab abnormalities, going to OR and other pertinent info. @ -Discharged home. See above for ED course Undiagnosed new problem with uncertain prognosis? @ -No Drug Therapy requiring intensive monitoring for toxicity (Heparin, Nitro, Insulin, Cardizem)? @ -No Were any procedures done? @ -No Diagnosis/symptom? @ -Mechanical fall Acute, or Chronic, or Acute on Chronic? @ -Acute Uncomplicated (without systemic symptoms) or Complicated (systemic symptoms)? @ -Uncomplicated Side effects of treatment? @ -No Exacerbation, Progression, or Severe Exacerbation? @ -No Poses a threat to life or bodily function? How? (Chest pain, [place], [place], pneumonia, PE, COPD, DKA, ARF, appy, cholecystitis, CVA, Diverticulitis, Homicidal, Suicidal, threat to staff... and all critical care pts) @ -No Diagnosis/symptom? @ -Scalp laceration Acute, or Chronic, or Acute on Chronic? @ -Acute Uncomplicated (without systemic symptoms) or Complicated (systemic symptoms)? @ -Uncomplicated Side effects of treatment? @ -none Exacerbation, Progression, or Severe Exacerbation] @ -no Poses a threat to life or bodily function? @ -no Diagnosis/symptom? @ -Hyponatremia Acute, or Chronic, or Acute on Chronic? @ -Chronic Uncomplicated (without systemic symptoms) or Complicated (systemic symptoms)? @ -Uncomplicated Side effects of treatment? @ -none Exacerbation, Progression, or Severe Exacerbation] @ -no Poses a threat to life or bodily function? @ -no (Estevan Fleming) - Lab Data Lab Results 03/22/22 03/22/22 03/22/22 Range/Units 21:35 21:35 21:35 WBC 5.3 (3.8-10.6) k/uL RBC 4.00 L (4.30-5.90) m/uL Hgb 12.8 L (13.0-17.5) gm/dL Hct 36.5 L (39.0-53.0) % MCV 91.3 (80.0-100.0) fL MCH 32.0 (25.0-35.0) pg MCHC 35.1 (31.0-37.0) g/dL RDW 12.2 (11.5-15.5) % Plt Count 235 (150-450) k/uL MPV 8.0 Neutrophils % 74 % Lymphocytes % 18 % Monocytes % 6 % Eosinophils % 1 % Basophils % 0 % Neutrophils # 3.9 (1.3-7.7) k/uL Lymphocytes # 0.9 L (1.0-4.8) k/uL Monocytes # 0.3 (0-1.0) k/uL Eosinophils # 0.1 (0-0.7) k/uL Basophils # 0.0 (0-0.2) k/uL PT 11.5 (9.0-12.0) sec INR 1.1 (<1.2) APTT 33.9 H (22.0-30.0) sec Sodium 125 L (137-145) mmol/L Potassium 4.2 (3.5-5.1) mmol/L Chloride 91 L (98-107) mmol/L Carbon Dioxide 28 (22-30) mmol/L Anion Gap 6 mmol/L BUN 14 (9-20) mg/dL Creatinine 0.55 L (0.66-1.25) mg/dL Est GFR (CKD-EPI)AfAm >90 (>60 ml/min/1.73 sqM) Est GFR (CKD-EPI)NonAf >90 (>60 ml/min/1.73 sqM) Glucose 107 H (74-99) mg/dL Calcium 9.8 (8.4-10.2) mg/dL Total Bilirubin 0.8 (0.2-1.3) mg/dL AST 38 (17-59) U/L ALT 38 (4-49) U/L Alkaline Phosphatase 75 (38-126) U/L Total Protein 7.1 (6.3-8.2) g/dL Albumin 4.6 (3.5-5.0) g/dL Blood Type Blood Type Recheck Bld Type Recheck Status Antibody Screen Spec Expiration Date 03/22/22 Range/Units 21:35 WBC (3.8-10.6) k/uL RBC (4.30-5.90) m/uL Hgb (13.0-17.5) gm/dL Hct (39.0-53.0) % MCV (80.0-100.0) fL MCH (25.0-35.0) pg MCHC (31.0-37.0) g/dL RDW (11.5-15.5) % Plt Count (150-450) k/uL MPV Neutrophils % % Lymphocytes % % Monocytes % % Eosinophils % % Basophils % % Neutrophils # (1.3-7.7) k/uL Lymphocytes # (1.0-4.8) k/uL Monocytes # (0-1.0) k/uL Eosinophils # (0-0.7) k/uL Basophils # (0-0.2) k/uL PT (9.0-12.0) sec INR (<1.2) APTT (22.0-30.0) sec Sodium (137-145) mmol/L Potassium (3.5-5.1) mmol/L Chloride (98-107) mmol/L Carbon Dioxide (22-30) mmol/L Anion Gap mmol/L BUN (9-20) mg/dL Creatinine (0.66-1.25) mg/dL Est GFR (CKD-EPI)AfAm (>60 ml/min/1.73 sqM) Est GFR (CKD-EPI)NonAf (>60 ml/min/1.73 sqM) Glucose (74-99) mg/dL Calcium (8.4-10.2) mg/dL Total Bilirubin (0.2-1.3) mg/dL AST (17-59) U/L ALT (4-49) U/L Alkaline Phosphatase (38-126) U/L Total Protein (6.3-8.2) g/dL Albumin (3.5-5.0) g/dL Blood Type O Positive Blood Type Recheck O Pos Bld Type Recheck Status No Antibody Screen NEGATIVE Spec Expiration Date 03/25/20222334 Disposition <Kathleen Dumas - Last Filed: 03/22/22 22:40> Is patient prescribed a controlled substance at d/c from ED?: No Time of Disposition: 22:30 <Estevan Fleming - Last Filed: 03/22/22 23:14> Clinical Impression: Fall, Scalp laceration, Hyponatremia Disposition: HOME SELF-CARE Condition: Good Instructions (If sedation given, give patient instructions): Fall Prevention for Older Adults (ED) Referrals: Angel Garcia MD [Primary Care Provider] - 1-2 days
[2022-03-22 22:55] VITALS: BP 191/93; PULSE 72; TEMP 98.1
== END 2022-03-22 23:04 | disposition home or self-care (01) ==
LOC: EC 20:44
DX: S01.01XA Laceration without foreign body of scalp, initial encounter (principal); E87.1 Hypo-osmolality and hyponatremia; J45.909 Unspecified asthma, uncomplicated; I10 Essential (primary) hypertension; Z88.0 Allergy status to penicillin; Z79.899 Other long term (current) drug therapy; Z95.9 Presence of cardiac and vascular implant and graft, unspecified; W07.XXXA Fall from chair, initial encounter; Y92.009 Unspecified place in unspecified non-institutional (private) residence as the place of occurrence of the external cause; Y93.89 Activity, other specified
CPT/HCPCS: 12002; 36415; 70450; 71046; 72125; 72170; 80053; 85025; 85610; 85730; 86850; 86900; 86901; 96360; 99284

== ENCOUNTER → 2022-07-06 | Outpatient (CLI) | payer MEDICARE, BC ==
[2022-07-07 00:32] LABS: % Iron Saturation 10.34 (15.00-50.00); African American GFR (CKD) 95.9 (60.0-200.0); Albumin 4.1 g/dL (3.8-4.9); Albumin/Globulin Ratio 2.28 (1.60-3.17); Anion Gap 9.7 mmol/L (10.00-18.00); BUN/Creat Ratio 14.92 Ratio (12.00-20.00); Blood Urea Nitrogen 11.1 mg/dL (9.0-27.0); Carbon Dioxide 28.1 mmol/L (20.0-27.5); Globulin 1.8 g/dL (1.6-3.3); Non-African American GFR(CKD) 82.8 (60.0-200.0); Potassium 4.7 mmol/L (3.5-5.5); Total Bilirubin 0.9 mg/dL (0.30-1.20); Total Protein 5.9 g/dL (6.2-8.2)
== END | disposition home or self-care (01) ==
LOC: LABWHC1 14:27
PROVIDERS: ATTEND Physician Assistant
DX: R53.83 Other fatigue (principal)
CPT/HCPCS: 36415; 80053; 82607; 82728; 82746; 83540; 83550; 83880

== ENCOUNTER → 2022-07-27 | Outpatient (CLI) | payer MEDICARE, BC ==
[2022-07-27 15:18] LABS: Basophils # (A) 0.03 X 10*3/uL; Basophils % (A) 0.7 %; Eosinophils # (A) 0.12 X 10*3/uL; Eosinophils % (A) 2.6 %; HCT 35.1 %; HGB 11.6 d/dL; Lymphocytes # (A) 1.05 X 10*3/uL; MCH 31.7 pg; MCV 95.9 FL; Mean Platelet Volume 10.5 FL; Monocytes # (A) 0.48 X 10*3/uL; Monocytes % (A) 10.5 %; NRBC Per 100 WBC 0 X 10*3/uL; Neutrophils # (A) 2.86 X 10*3/uL; Neutrophils % (A) 62.8 %; Platelet Count 194 X 10*3/uL; RBC 3.66 X 10*6/uL; RDW 12.2 %; WBC 4.56 X 10*3/uL
== END | disposition home or self-care (01) ==
LOC: LABWHC1 10:57
PROVIDERS: ATTEND Physician Assistant
DX: R53.83 Other fatigue (principal)
CPT/HCPCS: 36415; 85025

== ENCOUNTER 2023-01-29 12:17 | Emergency (ER) | payer MEDICARE, BC ==
[2023-01-29 12:27] VITALS: TEMP 97.6
--- NOTE | 2023-01-29 12:44 | ED ---
Chest Pain HPI - General Chief Complaint: Arrhythmia/Palpitations Stated Complaint: chest pain Time Seen by Provider: 01/29/23 12:28 Source: patient, family, RN notes reviewed Mode of arrival: ambulatory Limitations: no limitations - History of Present Illness Initial Comments: This is an 87-year-old male who presents to the emergency department for chest pain and palpitations. States that last night he started to get a dull aching sensation in his left arm. This is not worse with movement. Denies any pain in the chest itself. He has ongoing shortness of breath, but does not believe that this is any worse than normal. Also felt like he was having palpitations. He does have a history of atrial fibrillation and he is on anticoagulation. Follows with Dr. Davila, cardiology. MD Complaint: chest pain - Related Data Home Medications Medication Instructions Recorded Confirmed Latanoprost Ophth [Xalatan 0.005%] 1 drops BOTH EYES HS 03/30/17 08/25/21 atenoloL [Tenormin] 25 mg PO DAILY 03/30/17 08/25/21 Albuterol Inhaler [Ventolin Hfa 1 puff INHALATION RT-QID PRN 02/08/20 08/25/21 Inhaler] Albuterol Nebulized [Ventolin 2.5 mg INHALATION RT-Q6H PRN 05/24/20 08/20/21 Nebulized] Ascorbic Acid [Vitamin C] 500 mg PO DAILY 05/24/20 08/25/21 hydroCHLOROthiazide [Hydrodiuril] 25 mg PO DAILY 05/24/20 08/25/21 Cholecalciferol [Vitamin D3 (25 25 mcg PO DAILY 07/31/21 08/25/21 Mcg = 1000 Iu)] Dabigatran Etexilate Mesylate 75 mg PO BID 07/31/21 08/25/21 [Pradaxa] Fluticasone Propion/Salmeterol 1 inhalation PO BID 07/31/21 08/25/21 [Wixela 250-50 Inhub] Losartan Potassium 100 mg PO QAM 07/31/21 08/25/21 Acetaminophen Tab [Tylenol] 650 mg PO Q6H PRN 08/20/21 08/25/21 Previous Rx's Medication Instructions Recorded Docusate [Colace] 100 mg PO BID #20 capsule 08/04/21 Acetaminophen Tab [Tylenol] 650 mg PO Q6H #30 tab 08/25/21 Docusate [Colace] 100 mg PO BID #20 capsule 08/25/21 Ibuprofen [Motrin] 600 mg PO Q6HR PRN #40 tab 08/25/21 oxyCODONE HCL [OxyIR] 5 mg PO Q6H PRN 3 Days #10 tab 08/25/21 Allergies Allergy/AdvReac Type Severity Reaction Status Date / Time codeine Allergy MOUTH Verified 01/29/23 12:21 SWELLING Penicillins Allergy facial Verified 01/29/23 12:21 swelling Review of Systems ROS Statement: Those systems with pertinent positive or pertinent negative responses have been documented in the HPI. ROS Other: All systems not noted in ROS Statement are negative. Past Medical History Past Medical History: Atrial Fibrillation, Asthma, Hypertension, Osteoarthritis (OA) Additional Past Medical History / Comment(s): cellulitis and wound rt heel, hx. colon polyps, GERD, glaucoma, borderline diabetes mellitus History of Any Multi-Drug Resistant Organisms: None Reported Past Surgical History: Heart Catheterization Additional Past Surgical History / Comment(s): colonoscopies, Cataracts Past Anesthesia/Blood Transfusion Reactions: No Reported Reaction Past Psychological History: No Psychological Hx Reported Smoking Status: Never smoker - Past Family History Sister(s) Family Medical History: Cancer Additional Family Medical History / Comment(s): colon Brother(s) Family Medical History: Cancer Additional Family Medical History / Comment(s): colon General Exam Limitations: no limitations General appearance: alert, in no apparent distress Head exam: Present: atraumatic, normocephalic, normal inspection Respiratory exam: Present: normal lung sounds bilaterally. Absent: respiratory distress, wheezes, rales, rhonchi, stridor Cardiovascular Exam: Present: bradycardia, irregular rhythm Extremities exam: Present: other (No tenderness to palpation or exacerbation of pain with range of motion of the left upper extremity. Full ROM. No overlying deformities. 2+ radial pulses.) Neurological exam: Present: alert, oriented X3, CN II-XII intact Psychiatric exam: Present: normal affect, normal mood Skin exam: Present: warm, dry, intact, normal color. Absent: rash Course Vital Signs 01/29/23 01/29/23 01/29/23 12:18 14:26 14:54 Temperature 97.6 F Pulse Rate 57 L 54 L 55 L Respiratory 20 18 18 Rate Blood Pressure 142/70 137/59 O2 Sat by Pulse 98 98 98 Oximetry Chest Pain MDM - MDM This is an 87-year-old male who presents to the emergency department for left arm pain and palpitations. Was pt. sent in by a medical professional or institution? @ -No Did you speak to anyone other than the patient for history? @ -No Did you review nursing and triage notes? @ -Yes, and I agree, it is accurate with regards to the patient's symptoms. Were old charts reviewed? @ -No Differential Diagnosis? @ -Differential Palpitations: Ventricular arrhythmias, atrial arrhythmias, myocardial infarction, anemia, thyrotoxicosis, electrolyte imbalance, hypokalemia, pulmonary embolism, pulmonary disease, drugs, alcohol, anxiety, stress.... This is not meant to be an all-inclusive list. EKG interpreted by me (3pts min.)? @ -EKG interpreted by me demonstrating the following: atrial fibrillation with slow ventricular response. Ventricular rate 43 beats per minute, QRS duration 112 ms, QTC 413 ms. X-rays interpreted by me (1pt min.)? @ -Chest x-ray obtained, my interpretation identifies no localized consolidations or infiltrates. CT interpreted by me (1pt min.)? @ -Not obtained U/S interpreted by me (1pt. min.)? @ -Not obtained What testing was considered but not performed? (CT, X-rays, U/S, labs)? Why? @ -None What meds were considered but not given? Why? @ -None Did you discuss the management of the patient with other professionals? @ -No Did you reconcile home meds? @ -No Was smoking cessation discussed for >3mins.? @ -No Was critical care preformed (if so, how long)? @ -No Were there social determinants of health that impacted care today? How? (Homelessness, low income, unemployed, alcoholism, drug addiction, transportation, low edu. Level, literacy, decrease access to med. care, [facility], rehab)? @ -No Was there de-escalation of care discussed even if they declined? (Discuss DNR or withdrawal of care, Hospice)? @ -No What co-morbidities impacted this encounter? (DM, HTN, Smoking, COPD, CAD, Cancer, CVA, Hep., AIDS, mental health diagnosis, sleep apnea, morbid obesity)? @ -Atrial fibrillation, asthma, HTN Was patient admitted / discharged? @ -Discharged. Lab work obtained and found to be unremarkable. Chest x-ray reveals borderline cardiomegaly without any acute process. Patient was in atrial fibrillation with slow ventricular response. States that his heart rate is always slow. Given the vague symptom of left arm pain that is not reproducible, which can be seen in ischemic cardiac disease, I did offer and recommend admission for cardiac observation. However, patient states that he did start to feel better and requested discharge home. 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 Undiagnosed new problem with uncertain prognosis? @ -None Drug Therapy requiring intensive monitoring for toxicity (Heparin, Nitro, Insulin, Cardizem)? @ -None Were any procedures done? @ -None Diagnosis/symptom? @ -Left arm pain Acute, or Chronic, or Acute on Chronic? @ -Acute Uncomplicated (without systemic symptoms) or Complicated (systemic symptoms)? @ -Uncomplicated Side effects of treatment? @ -None Exacerbation, Progression, or Severe Exacerbation] @ -Not applicable Poses a threat to life or bodily function? @ -Unlikely, however this will depend on the cause Return precautions reviewed in depth, the patient is instructed to return to the emergency department with any new, worsening, or concerning symptoms. Patient verbalized understanding. This case was discussed in detail with the attending ED physician, Dr. Jarrett. Presentation, findings, and treatment plan discussed in detail as well. Disposition Clinical Impression: Left arm pain, Palpitations Disposition: HOME SELF-CARE Instructions (If sedation given, give patient instructions): Heart Palpitations (ED) Additional Instructions: Return to the emergency department with any new, worsening, or concerning symptoms. Follow up with your primary care provider in 1-2 days. Is patient prescribed a controlled substance at d/c from ED?: No Referrals: Kolby Juarez MD [Primary Care Provider] - 1-2 days
[2023-01-29 13:11] LABS: Basophils % (A) 1 %; Eosinophils # (A) 0.1 k/uL (0-0.7); Eosinophils % (A) 3 %; HCT 32.7 % (39.0-53.0); HGB 11.1 gm/dL (13.0-17.5); Lymphocytes # (A) 1.1 k/uL (1.0-4.8); Lymphocytes % (A) 24 %; MCH 32.2 pg (25.0-35.0); MCHC 33.8 g/dL (31.0-37.0); MCV 95.3 fL (80.0-100.0); Mean Platelet Volume 8.5; Monocytes # (A) 0.3 k/uL (0-1.0); Monocytes % (A) 7 %; Neutrophils # (A) 2.9 k/uL (1.3-7.7); Neutrophils % (A) 63 %; Platelet Count 191 k/uL (150-450); RBC 3.44 m/uL (4.30-5.90); WBC 4.5 k/uL (3.8-10.6)
[2023-01-29 13:23] LABS: INR 1.2 (<1.2); Partial Thromboplastin Time 35.9 sec (22.0-30.0); Prothrombin Time 12.4 sec (10.0-12.5)
[2023-01-29 13:28] LABS: ALT 19 U/L (4-49); AST 25 U/L (17-59); African American GFR (CKD) >90 (>60 ml/min/1.73 sqM); Albumin 3.8 g/dL (3.5-5.0); Alkaline Phosphatase 57 U/L (38-126); Anion Gap 9 mmol/L; Blood Urea Nitrogen 24 mg/dL (9-20); Calcium 10.1 mg/dL (8.4-10.2); Carbon Dioxide 25 mmol/L (22-30); Chloride 96 mmol/L (98-107); Glucose 107 mg/dL (74-99); Magnesium 1.9 mg/dL (1.6-2.3); Non-African American GFR(CKD) >90 (>60 ml/min/1.73 sqM); Potassium 4.4 mmol/L (3.5-5.1); Sodium 130 mmol/L (137-145); Total Bilirubin 0.5 mg/dL (0.2-1.3); Total Protein 6.1 g/dL (6.3-8.2)
--- NOTE | 2023-01-29 13:40 | XR ---
EXAMINATION TYPE: XR chest 2V DATE OF EXAM: 01/29/2023 COMPARISON: 03/22/2022 HISTORY: 87-year-old male with chest pain TECHNIQUE: PA and lateral views FINDINGS: Heart is upper limits of normal in size. Relative upper lung lucencies. Interstitial prominence has a chronic appearance. No consolidation or pleural effusion. IMPRESSION: Borderline heart size and chronic appearing changes. No acute process seen.
[2023-01-29 14:40] VITALS: BP 137/59; RESP 18
[2023-01-29 15:03] VITALS: PULSE 55
== END 2023-01-29 14:56 | disposition home or self-care (01) ==
LOC: EC 12:17 → SUPCPDRO 12:17 → EC 14:56
DX: I48.91 Unspecified atrial fibrillation (principal); M79.602 Pain in left arm; I10 Essential (primary) hypertension; J45.909 Unspecified asthma, uncomplicated; H40.9 Unspecified glaucoma; Z79.01 Long term (current) use of anticoagulants; Z79.51 Long term (current) use of inhaled steroids; Z79.899 Other long term (current) drug therapy; Z88.0 Allergy status to penicillin; Z88.5 Allergy status to narcotic agent
CPT/HCPCS: 36415; 71046; 80053; 83735; 84484; 85025; 85610; 85730; 87636; 93005; 99285

== ENCOUNTER 2023-06-04 11:25 | Emergency (ER) | payer MEDICARE, BC ==
[2023-06-04 11:59] VITALS: TEMP 97.5
--- NOTE | 2023-06-04 12:22 | ED ---
Extremity Problem HPI - General Source: patient, RN notes reviewed Mode of arrival: wheelchair Limitations: no limitations <Elva Renee - Last Filed: 06/04/23 12:21> - General Source: patient, family, RN notes reviewed Limitations: no limitations <Nhan Valdez - Last Filed: 06/04/23 15:53> - General Chief complaint: Extremity Problem,Nontraumatic Stated complaint: leg infection Time Seen by Provider: 06/04/23 11:45 - History of Present Illness Initial comments: This is an 87-year-old male presents emergency department chief complaint of right-sided leg pain. Patient states that he has been treated for an infection of his right leg and foot 2 weeks ago with Doxy. States that he has been experiencing pain of his and addition to having fever sensations at home. (Elva Renee) Patient is a pleasant 87-year-old male presenting to the emergency department with concerns for right leg infection. Onset of symptoms was around 2 or more weeks ago. Patient had doxycycline and it started to improve. Symptoms worsened again and patient had a second prescription of doxycycline this time for 10 days. First was 7. Patient states symptoms have started to worsen again. He just finished the second prescription. Patient has redness and discomfort right lower leg, more anterior. Patient does have history of chronic heel wound however that has not been bothering him. No fever. (Nhan Valdez) - Related Data Home Medications Medication Instructions Recorded Confirmed Latanoprost Ophth [Xalatan 0.005%] 1 drops BOTH EYES HS 03/30/17 08/25/21 atenoloL [Tenormin] 25 mg PO DAILY 03/30/17 08/25/21 Albuterol Inhaler [Ventolin Hfa 1 puff INHALATION RT-QID PRN 02/08/20 08/25/21 Inhaler] Albuterol Nebulized [Ventolin 2.5 mg INHALATION RT-Q6H PRN 05/24/20 08/20/21 Nebulized] Ascorbic Acid [Vitamin C] 500 mg PO DAILY 05/24/20 08/25/21 hydroCHLOROthiazide [Hydrodiuril] 25 mg PO DAILY 05/24/20 08/25/21 Cholecalciferol [Vitamin D3 (25 25 mcg PO DAILY 07/31/21 08/25/21 Mcg = 1000 Iu)] Dabigatran Etexilate Mesylate 75 mg PO BID 07/31/21 08/25/21 [Pradaxa] Fluticasone Propion/Salmeterol 1 inhalation PO BID 07/31/21 08/25/21 [Wixela 250-50 Inhub] Losartan Potassium 100 mg PO QAM 07/31/21 08/25/21 Acetaminophen Tab [Tylenol] 650 mg PO Q6H PRN 08/20/21 08/25/21 Previous Rx's Medication Instructions Recorded Docusate [Colace] 100 mg PO BID #20 capsule 08/04/21 Acetaminophen Tab [Tylenol] 650 mg PO Q6H #30 tab 08/25/21 Docusate [Colace] 100 mg PO BID #20 capsule 08/25/21 Ibuprofen [Motrin] 600 mg PO Q6HR PRN #40 tab 08/25/21 oxyCODONE HCL [OxyIR] 5 mg PO Q6H PRN 3 Days #10 tab 08/25/21 Clindamycin [Cleocin] 450 mg PO TID #90 cap 06/04/23 Allergies Allergy/AdvReac Type Severity Reaction Status Date / Time codeine Allergy MOUTH Verified 06/04/23 11:53 SWELLING Penicillins Allergy facial Verified 06/04/23 11:53 swelling Review of Systems ROS Other: All systems not noted in ROS Statement are negative. <Elva Renee - Last Filed: 06/04/23 12:21> ROS Other: All systems not noted in ROS Statement are negative. Constitutional: Denies: fever Eyes: Denies: eye pain ENT: Denies: ear pain Respiratory: Denies: cough, dyspnea Cardiovascular: Denies: chest pain Musculoskeletal: Denies: back pain Skin: Reports: as per HPI, rash <Nhan Valdez - Last Filed: 06/04/23 15:53> ROS Statement: Those systems with pertinent positive or pertinent negative responses have been documented in the HPI. Past Medical History Past Medical History: Atrial Fibrillation, Asthma, Hypertension, Osteoarthritis (OA) Additional Past Medical History / Comment(s): cellulitis and wound rt heel, hx. colon polyps, GERD, glaucoma, borderline diabetes mellitus History of Any Multi-Drug Resistant Organisms: None Reported Past Surgical History: Heart Catheterization Additional Past Surgical History / Comment(s): colonoscopies, Cataracts Past Anesthesia/Blood Transfusion Reactions: No Reported Reaction Past Psychological History: No Psychological Hx Reported Smoking Status: Never smoker Past Alcohol Use History: Rare Past Drug Use History: None Reported - Past Family History Sister(s) Family Medical History: Cancer Additional Family Medical History / Comment(s): colon Brother(s) Family Medical History: Cancer Additional Family Medical History / Comment(s): colon <Elva Renee - Last Filed: 06/04/23 12:21> General Exam Limitations: no limitations <Elva Renee - Last Filed: 06/04/23 12:21> Limitations: no limitations General appearance: alert, in no apparent distress Head exam: Present: normocephalic Eye exam: Present: normal appearance Respiratory exam: Present: normal lung sounds bilaterally Cardiovascular Exam: Present: regular rate, normal rhythm Expanded Peripheral pulses: 2+: Dorsalis Pedis (R) GI/Abdominal exam: Present: soft. Absent: tenderness Extremities exam: Present: other (Right lower leg with mild swelling. Mild erythema and mild warmth anterior mid hernández. Mild right calf tenderness. Distally the extremity is neurovascular intact) Neurological exam: Present: alert Psychiatric exam: Present: normal affect, normal mood Skin exam: Present: erythema (Mild right anterior hernández) <Nhan Valdez - Last Filed: 06/04/23 15:53> - General Exam Comments Initial Comments: Visual Physical Exam Vital signs reviewed General: Well-appearing, nontoxic, no acute distress. Head: Normocephalic, atraumatic Eyes: PERRLA, EOMI ENT: Airway patent Chest: Nonlabored breathing Skin: No visual rash, normal skin tone Neuro: Alert and oriented 3 Musculoskeletal: No gross abnormalities (Elva Renee) Course Vital Signs 06/04/23 11:48 Temperature 97.5 F L Pulse Rate 55 L Respiratory 18 Rate Blood Pressure 164/73 O2 Sat by Pulse 97 Oximetry Medical Decision Making <Elva Renee - Last Filed: 06/04/23 12:21> - Lab Data Result diagrams: 06/04/23 12:34 06/04/23 12:34 <Nhan Valdez Last Filed: 06/04/23 15:53> - Medical Decision Making I completed the quick note portion of this chart signed Elva Renee PA-C (Stieler,Elva) Was pt. sent in by a medical professional or institution (REILLY Wilson, CLINICAL LEADER, urgent care, hospital, or care home...) When possible be specific @ -No Did you speak to anyone other than the patient for history (EMS, parent, family, police, friend...)? What history was obtained from this source @ -No Did you review nursing and triage notes (agree or disagree)? Why? @ -I reviewed and agree with nursing and triage notes Were old charts reviewed (outside hosp., previous admission, EMS record, old EKG, old radiological studies, urgent care reports/EKG's, care home records)? Report findings @ -No old charts were reviewed Differential Diagnosis (chest pain, altered mental status, abdominal pain women, abdominal pain men, vaginal bleeding, weakness, fever, dyspnea, syncope, headache, dizziness, GI bleed, back pain, seizure, CVA, palpatations, mental health, musculoskeletal)? @ -Differential Fever: Pneumonia, viral URI, endocarditis, myocarditis, pericarditis, otitis, sinusitis, peritonsillar Abscess, retropharyngeal Abscess, epiglottitis, peritonitis, appendicitis, Myrtle cystitis, diverticulitis, hepatitis, colitis, UTI, PID, TOA, pyelonephritis, prostatitis, epididymitis, meningitis, encephalitis, pulmonary embolism, CVA, thyroid storm, pancreatitis, adrenal crisis, cavernous sinus thrombosis, this is not meant to be an all-inclusive list. EKG interpreted by me (3pts min.). @ -As above X-rays interpreted by me (1pt min.). @ -X-ray shows no evidence of infection in the bone CT interpreted by me (1pt min.). @ -None done U/S interpreted by me (1pt. min.). @ -Some negative for DVT What testing was considered but not performed or refused? (CT, X-rays, U/S, labs)? Why? @ -None What meds were considered but not given or refused? Why? @ -None Did you discuss the management of the patient with other professionals (professionals i.e. REILLY Wilson, CLINICAL LEADER, lab, RT, psych nurse, psychiatric social worker supervisor, finishing trimmer, teacher, commissioned security officer, bottle caser)? Give summary @ -No Was smoking cessation discussed for >3mins.? @ -No Was critical care preformed (if so, how long)? @ -No Were there social determinants of health that impacted care today? How? (Homelessness, low income, unemployed, alcoholism, drug addiction, transportation, low edu. Level, literacy, decrease access to med. care, correction, rehab)? @ -No Was there de-escalation of care discussed even if they declined (Discuss DNR or withdrawal of care, Hospice)? DNR status @ -Discussion with patient regarding outpatient versus inpatient treatment. Patient is comfortable with trying outpatient treatment again. What co-morbidities impacted this encounter? (DM, HTN, Smoking, COPD, CAD, Cancer, CVA, ARF, Chemo, Hep., AIDS, mental health diagnosis, sleep apnea, morbid obesity)? @ -None Was patient admitted / discharged? Hospital course, mention meds given and route, prescriptions, significant lab abnormalities, going to OR and other pertinent info. @ -Patient presents with minimal cellulitic changes right anterior hernández. Failed antibiotics that was repeated with the same antibiotic. Patient symptoms do appear mild. No elevation of white blood cell count or bone involvement changes on x-ray or ultrasound. Patient will be discharged with close follow-up and recommended return if symptoms worsen. Patient will be given clindamycin Undiagnosed new problem with uncertain prognosis? @ -No Drug Therapy requiring intensive monitoring for toxicity (Heparin, Nitro, Insulin, Cardizem)? @ -No Were any procedures done? @ -No Diagnosis/symptom? @ -Cellulitis right lower leg Acute, or Chronic, or Acute on Chronic? @ -Acute Uncomplicated (without systemic symptoms) or Complicated (systemic symptoms)? @ -Default Side effects of treatment? @ -No Exacerbation, Progression, or Severe Exacerbation? @ -No Poses a threat to life or bodily function? How? (Chest pain, USA, NH, pneumonia, PE, COPD, DKA, ARF, appy, cholecystitis, CVA, Diverticulitis, Homicidal, Suicidal, threat to staff... and all critical care pts) @ -No (Nhan Valdez) - Lab Data Lab Results 06/04/23 06/04/23 06/04/23 Range/Units 12:34 12:34 12:34 WBC 5.2 (3.8-10.6) k/uL RBC 3.87 L (4.30-5.90) m/uL Hgb 11.7 L (13.0-17.5) gm/dL Hct 36.3 L (39.0-53.0) % MCV 93.8 (80.0-100.0) fL MCH 30.2 (25.0-35.0) pg MCHC 32.2 (31.0-37.0) g/dL RDW 12.6 (11.5-15.5) % Plt Count 173 (150-450) k/uL MPV 8.8 Neutrophils % 72 % Lymphocytes % 17 % Monocytes % 6 % Eosinophils % 3 % Basophils % 1 % Neutrophils # 3.8 (1.3-7.7) k/uL Lymphocytes # 0.9 L (1.0-4.8) k/uL Monocytes # 0.3 (0-1.0) k/uL Eosinophils # 0.2 (0-0.7) k/uL Basophils # 0.0 (0-0.2) k/uL Sodium 130 L (137-145) mmol/L Potassium 4.8 (3.5-5.1) mmol/L Chloride 99 (98-107) mmol/L Carbon Dioxide 27 (22-30) mmol/L Anion Gap 4 mmol/L BUN 14 (9-20) mg/dL Creatinine 0.59 L (0.66-1.25) mg/dL Est GFR (CKD-EPI)AfAm >90 (>60 ml/min/1.73 sqM) Est GFR (CKD-EPI)NonAf >90 (>60 ml/min/1.73 sqM) Glucose 110 H (74-99) mg/dL Plasma Lactic Acid Riky 1.0 (0.7-2.0) mmol/L Calcium 9.7 (8.4-10.2) mg/dL Total Bilirubin 0.6 (0.2-1.3) mg/dL AST 27 (17-59) U/L ALT 20 (4-49) U/L Alkaline Phosphatase 67 (38-126) U/L C-Reactive Protein <0.5 (<1.0) mg/dL Total Protein 6.5 (6.3-8.2) g/dL Albumin 4.1 (3.5-5.0) g/dL Disposition <Elva Renee - Last Filed: 06/04/23 12:21> Is patient prescribed a controlled substance at d/c from ED?: No Time of Disposition: 15:52 <Nhan Valdez - Last Filed: 06/04/23 15:53> Clinical Impression: Cellulitis of right lower leg Disposition: HOME SELF-CARE Condition: Stable Instructions (If sedation given, give patient instructions): Cellulitis (ED) Additional Instructions: Prescription sent to pharmacy. Please do follow-up with your primary care physician Tuesday. Return for fever, increased redness, increased pain, increased swelling, worsening or changing symptoms or any other concerns. Prescriptions: Clindamycin [Cleocin] 450 mg PO TID #90 cap Referrals: Angel Garcia MD [Primary Care Provider] - 1-2 days
[2023-06-04 12:57] LABS: Basophils % (A) 1 %; Eosinophils # (A) 0.2 k/uL (0-0.7); Eosinophils % (A) 3 %; HCT 36.3 % (39.0-53.0); HGB 11.7 gm/dL (13.0-17.5); Lymphocytes # (A) 0.9 k/uL (1.0-4.8); Lymphocytes % (A) 17 %; MCH 30.2 pg (25.0-35.0); MCHC 32.2 g/dL (31.0-37.0); MCV 93.8 fL (80.0-100.0); Mean Platelet Volume 8.8; Monocytes # (A) 0.3 k/uL (0-1.0); Monocytes % (A) 6 %; Neutrophils # (A) 3.8 k/uL (1.3-7.7); Neutrophils % (A) 72 %; Platelet Count 173 k/uL (150-450); RBC 3.87 m/uL (4.30-5.90); RDW 12.6 % (11.5-15.5); WBC 5.2 k/uL (3.8-10.6)
[2023-06-04 13:51] LABS: ALT 20 U/L (4-49); AST 27 U/L (17-59); African American GFR (CKD) >90 (>60 ml/min/1.73 sqM); Albumin 4.1 g/dL (3.5-5.0); Alkaline Phosphatase 67 U/L (38-126); Anion Gap 4 mmol/L; Blood Urea Nitrogen 14 mg/dL (9-20); C Reactive Protein <0.5 mg/dL (<1.0); Calcium 9.7 mg/dL (8.4-10.2); Carbon Dioxide 27 mmol/L (22-30); Chloride 99 mmol/L (98-107); Glucose 110 mg/dL (74-99); Non-African American GFR(CKD) >90 (>60 ml/min/1.73 sqM); Potassium 4.8 mmol/L (3.5-5.1); Sodium 130 mmol/L (137-145); Total Bilirubin 0.6 mg/dL (0.2-1.3); Total Protein 6.5 g/dL (6.3-8.2)
--- NOTE | 2023-06-04 14:26 | US ---
EXAMINATION TYPE: US venous doppler duplex LE RT DATE OF EXAM: 06/04/2023 1:49 PM COMPARISON: NONE CLINICAL INDICATION: Male, 87 years old with history of pain swelling; infection in right foot, no h/ o dvt SIDE PERFORMED: Right TECHNIQUE: The lower extremity deep venous system is examined utilizing real time linear array sonog behzad with graded compression, doppler sonography and color-flow sonography. VESSELS IMAGED: Common Femoral Vein Deep Femoral Vein Greater Saphenous Vein * Femoral Vein Popliteal Vein Small Saphenous Vein * Proximal Calf Veins (* superficial vessels) Right Leg: Negative for DVT IMPRESSION: Grayscale, color doppler, spectral doppler imaging performed of the deep veins of the lo wer extremities. There is normal flow, compressibility, vascular waveforms.
--- NOTE | 2023-06-04 14:39 | XR ---
EXAMINATION TYPE: XR tibia fibula RT DATE OF EXAM: 06/04/2023 2:04 PM CLINICAL INDICATION:Male, 87 years old with history of swelling; [facility] COMPARISON: None TECHNIQUE: XR tibia fibula RT; tibia/fibula was examined in AP and lateral projections. FINDINGS: No evidence of any acute osseous pathology, joint dislocation, or soft tissue swelling is n oted. Severe atherosclerosis throughout the arterial vasculature. Degeneration changes of the knee an d joint to the foot and ankle with osteophyte reformation joint space narrowing. Soft tissue swelling around the ankle. IMPRESSION: 1. No evidence of acute fracture. 2. Soft tissue swelling around the ankle. No evidence for osseous erosion.
[2023-06-04] MEDS: KETOROLAC 15 MG/ML 1 ML VIAL IVP STA (14:58)
[2023-06-04] MEDS: CLINDAMYCIN 300 MG in DEXTROSE 5% IN WATER 50 ML IVPB STA (16:23)
[2023-06-04 18:15] VITALS: BP 158/79; PULSE 57; RESP 17
[2023-06-04 23:55] LABS: Erythrocyte Sedimentation Rate 6 mm/Hr (0-20)
== END 2023-06-04 17:53 | disposition home or self-care (01) ==
LOC: EC 11:25
DX: L03.115 Cellulitis of right lower limb (principal); Z88.0 Allergy status to penicillin; Z88.5 Allergy status to narcotic agent
CPT/HCPCS: 36415; 80053; 85652; 83605; 85025; 86140; 73590; 93971; 99284; 96365; 96375; J1885; J0736

== ENCOUNTER → 2024-03-02 | Day surgery (SDC) | payer MEDICARE, BC ==
[~2024-03-02] MED LIST changes: -ACETAMINOPHEN TAB 500 MG TAB PO PRN; -DEXAMETHASONE SOD PHOSPHATE 4 MG/ML 1 ML VIAL IV ONE; -HEPARIN SODIUM,PORCINE/PF 5,000 UNIT/0.5 ML SYRINGE SQ PRN; -HYDROmorphone 0.5 MG/0.5 ML SYRINGE IVP PRN; -LIDOCAINE 1% (10MG/ML) FOR IV START INTRADERMA PRN; +LIDOCAINE 2% (PF) 20 MG/ML 5 ML VIAL ONE; -MIDAZOLAM 2 MG/2 ML VIAL IV PRN; -ONDANSETRON 4 MG/2 ML VIAL IVP ONE; +PROPOFOL 10 MG/ML 20 ML VIAL IV ONE
[2024-03-02] MEDS: IV FLUID CONTINUATION 1,000 ML IV ONE ×2 (13:21→14:22)
[2024-03-02 13:31] VITALS: TEMP 97.8
[2024-03-02 13:46] LABS: Glucose,Whole Blood 114 mg/dL (70-110)
--- NOTE | 2024-03-02 14:40 | P.PCN ---
Date of Procedure: 03/02/24 Procedure(s) Performed: BRIEF HISTORY: Patient is a 88-year-old, pleasant, white male scheduled an upper endoscopy as a part of evaluation of black tarry stools for the last 1 month duration. He denies any abdominal pain nausea vomiting. He was noted to have occult blood positive in the stool. History of A-fib on Pradaxa which is on hold for 2 days.. PROCEDURE PERFORMED: Esophagogastroduodenoscopy with argon plasma coagulation. PREOPERATIVE DIAGNOSIS: Melena of 1 month duration. IV sedation per anesthesia. PROCEDURE: After informed consent was obtained, the patient was brought into the endoscopy unit. IV sedation was administered by Anesthesia under continuous monitoring. Initially the Olympus GIF-140 video endoscope was inserted into the mouth. Esophagus intubated without any difficulty. It was gradually advanced into the stomach and duodenum and carefully examined. The bulb and the second part of the duodenum appeared normal. The scope at this time was withdrawn to the stomach, adequately insufflated with air, and upon careful examination, mucosa of the antrum, body, mild diffuse gastritis. In the proximal body of the stomach there were 2 nonbleeding arteriovenous malformations identified measuring between 3 mm and 7 mm in size both of which were coagulated using argon plasma. Rest of the cardia and the fundus appeared normal. The scope was then withdrawn into the esophagus. Hiatal hernia noted. The GE junction was located at 39 cm from the incisors. The esophagus appeared normal. There were no erosions or ulcerations seen and the patient tolerated the procedure well. IMPRESSION: 1. 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 2. Small hiatal hernia 3. Diffuse mild gastritis. RECOMMENDATIONS: The findings of this examination were discussed with the patient as well as his family. He was advised to resume Pradaxa today. Monitor CBC on a monthly basis.
[2024-03-02 15:02] VITALS: BP 142/66; RESP 16
[2024-03-02 15:07] VITALS: PULSE 64
== END ==
LOC: ORWHC2ENDO 12:11
PROVIDERS: ATTEND Internal Medicine Gastroenterology
DX: K29.70 Gastritis, unspecified, without bleeding (principal); K21.9 Gastro-esophageal reflux disease without esophagitis; K92.1 Melena; I48.91 Unspecified atrial fibrillation; I10 Essential (primary) hypertension; J45.909 Unspecified asthma, uncomplicated; E11.9 Type 2 diabetes mellitus without complications; Z88.0 Allergy status to penicillin; Z88.5 Allergy status to narcotic agent; Z90.89 Acquired absence of other organs; Z79.01 Long term (current) use of anticoagulants; Z79.899 Other long term (current) drug therapy
CPT/HCPCS: 43255; J2704; J2003; 43270

== ENCOUNTER → 2024-08-06 | Outpatient (CLI) | payer MEDICARE, BC ==
[2024-08-06 18:27] LABS: Basophils # (A) 0.06 X 10*3/uL (0.00-0.10); Eosinophils # (A) 0.13 X 10*3/uL (0.04-0.35); Eosinophils % (A) 2.2 %; HCT 35.2 % (39.6-50.0); HGB 11.4 g/dL (13.0-17.0); Lymphocytes # (A) 1.27 X 10*3/uL (0.90-5.00); Lymphocytes % (A) 21.2 %; MCH 30.6 pg (27.0-32.0); MCHC 32.4 g/dL (32.0-37.0); MCV 94.6 FL (80.0-97.0); Mean Platelet Volume 10.9 FL (9.5-12.2); Monocytes # (A) 0.55 X 10*3/uL (0.20-1.00); Monocytes % (A) 9.2 %; NRBC Per 100 WBC 0 X 10*3/uL (0.00-0.01); Neutrophils # (A) 3.93 X 10*3/uL (1.80-7.70); Neutrophils % (A) 65.7 %; Platelet Count 187 X 10*3/uL (140-440); RBC 3.72 X 10*6/uL (4.40-5.60); RDW 12.4 % (11.5-14.5); WBC 5.98 X 10*3/uL (4.50-10.00)
== END | disposition home or self-care (01) ==
LOC: LABWHC1 13:24
PROVIDERS: ATTEND Internal Medicine Gastroenterology
DX: I99.8 Other disorder of circulatory system (principal)
CPT/HCPCS: 36415; 85025

== ENCOUNTER 2024-08-09 15:43 | Observation (INO) | payer MEDICARE, BC ==
[2024-08-09 17:06] LABS: Basophils # (A) 0.04 10*3/uL (0.00-0.10); Basophils % (A) 0.8 %; Eosinophils # (A) 0.16 10*3/uL (0.04-0.35); Eosinophils % (A) 3.1 %; HCT 34.7 % (39.6-50.0); HGB 11.8 g/dL (13.0-17.0); Lymphocytes # (A) 1.19 10*3/uL (0.90-5.00); MCH 31.4 pg (27.0-32.0); MCV 92.3 fL (80.0-97.0); Mean Platelet Volume 10.9 fL (9.5-12.2); Monocytes # (A) 0.48 10*3/uL (0.20-1.00); Monocytes % (A) 9.3 %; Neutrophils # (A) 3.27 10*3/uL (1.80-7.70); Neutrophils % (A) 63.2 %; Platelet Count 171 10*3/uL (140-440); RBC 3.76 10*6/uL (4.40-5.60); RDW 12.2 % (11.5-14.5); WBC 5.17 10*3/uL (4.50-10.00)
[2024-08-09] MEDS: SODIUM CHLORIDE 0.9% 1,000 ML IV ONE (17:06)
[2024-08-09 17:14] LABS: ALT 20 U/L (4-49); AST 29 U/L (17-59); African American GFR (CKD) >90 (>60 ml/min/1.73 sqM); Albumin 4.2 g/dL (3.5-5.0); Alkaline Phosphatase 85 U/L (38-126); Anion Gap 8 mmol/L; Blood Urea Nitrogen 15 mg/dL (9-20); Calcium 10.2 mg/dL (8.4-10.2); Carbon Dioxide 26 mmol/L (22-30); Chloride 97 mmol/L (98-107); Glucose 104 mg/dL (74-99); Magnesium 1.9 mg/dL (1.6-2.3); Non-African American GFR(CKD) >90 (>60 ml/min/1.73 sqM); Potassium 4.4 mmol/L (3.5-5.1); Sodium 131 mmol/L (137-145); Total Bilirubin 0.5 mg/dL (0.2-1.3); Total Protein 6.7 g/dL (6.3-8.2)
--- NOTE | 2024-08-09 17:25 | XR ---
EXAMINATION TYPE: XR chest 2V DATE OF EXAM: 08/09/2024 5:20 PM COMPARISON: Chest radiographs from 01/29/2023 TECHNIQUE: XR chest 2V Frontal and lateral views of the chest. CLINICAL INDICATION:Male, 89 years old with history of dizzy; FINDINGS: Lungs/Pleura: There is no evidence of pleural effusion, focal consolidation, or pneumothorax. Pulmonary vascularity: Unremarkable. Heart/mediastinum: Cardiomediastinal silhouette is enlarged and stable. Atherosclerotic calcificatio ns are seen in the aorta. Musculoskeletal: No acute osseous pathology. IMPRESSION: Chronic changes without acute pulmonary process. No significant change from prior. [facility], , 08/09/2024 5:23 PM
[2024-08-09 17:46] LABS: Appearance,Urine Clear (Clear); Bilirubin,Urine Negative (Negative); Blood,Urine Negative (Negative); Color,Urine Colorless; Glucose,Urine (UA) Negative (Negative); Ketones,Urine Negative (Negative); Leukocyte Esterase,Urine Negative (Negative); Nitrite,Urine Negative (Negative); Protein,Urine Negative (Negative); Specific Gravity,Urine 1.007 (1.001-1.035); Urobilinogen,Urine <2.0 mg/dL (<2.0)
[2024-08-09 17:49] LABS: INR 1.2 (<1.2); Partial Thromboplastin Time 25.9 sec (22.0-30.0); Prothrombin Time 12.5 sec (10.0-12.5)
[2024-08-09] MEDS: hydrALAZINE HCL 20 MG/ML 1 ML VIAL IVP STA ×2 (18:35→20:26)
--- NOTE | 2024-08-09 19:00 | ED ---
General Adult HPI - General Chief complaint: Dizziness Stated complaint: Light Headed/Low heart rate Time Seen by Provider: 08/09/24 15:50 Source: patient, RN notes reviewed, old records reviewed Mode of arrival: ambulatory Limitations: no limitations - History of Present Illness Initial comments: Patient is a 89-year-old male who presents emergency department after being sent by PCP for bradycardia on EKG. Has a history of atrial fibrillation on blood thinners, hypertension, diabetes, asthma. States he has been compliant with all blood pressure medications. States he was sent in for low heart rate. Was seen at PCP today because he had elevated blood pressure at his GI physicians appointment yesterday with no symptoms. [place]anner a little lightheaded this morning. Went to see the PCP we did an EKG and sent him here for further evaluation. Currently has no complaints. No chest pain or shortness of breath at any point. Presents for further evaluation at this time. - Related Data Home Medications Medication Instructions Recorded Confirmed Latanoprost Ophth [Xalatan 0.005%] 1 drop BOTH EYES HS 03/30/17 08/09/24 atenoloL [Tenormin] 25 mg PO DAILY 03/30/17 08/09/24 hydroCHLOROthiazide [Hydrodiuril] 25 mg PO DAILY 05/24/20 08/09/24 Cholecalciferol [Vitamin D3 (25 25 mcg PO DAILY 07/31/21 08/09/24 Mcg = 1000 Iu)] Dabigatran Etexilate Mesylate 75 mg PO BID 07/31/21 08/09/24 [Pradaxa] Fluticasone Propion/Salmeterol 1 puff INHALATION RT-BID 07/31/21 08/09/24 [Wixela 250-50 Inhub] Losartan Potassium 100 mg PO DAILY 07/31/21 08/09/24 Albuterol Sulfate [Ventolin HFA] 2 puff INHALATION RT-Q4H PRN 08/09/24 08/09/24 Ascorbic Acid [Vitamin C] 500 mg PO DAILY 08/09/24 08/09/24 Gabapentin [Neurontin] 100 mg PO BID 08/09/24 08/09/24 Allergies Allergy/AdvReac Type Severity Reaction Status Date / Time codeine Allergy MOUTH Verified 08/09/24 16:22 SWELLING Penicillins Allergy facial Verified 08/09/24 16:22 swelling Review of Systems ROS Statement: Those systems with pertinent positive or pertinent negative responses have been documented in the HPI. Review of Systems: CONST: Denies fever EYES: Denies blurry vision ENT: Denies nasal congestion C/V: Denies Chest pain RESP: Denies shortness of breath GI: Denies abdominal pain : Denies dysuria SKIN: Denies rash. MSK: Denies joint pain. NEURO: Denies headache ROS Other: All systems not noted in ROS Statement are negative. Past Medical History Past Medical History: Atrial Fibrillation, Asthma, Diabetes Mellitus, GERD /Reflux, Hypertension, Osteoarthritis (OA) Additional Past Medical History / Comment(s): cellulitis and wound rt heel, hx. colon polyps, GERD, glaucoma, borderline diabetes mellitus History of Any Multi-Drug Resistant Organisms: None Reported Past Surgical History: Heart Catheterization, Hernia Repair Additional Past Surgical History / Comment(s): colonoscopies, Cataracts Past Anesthesia/Blood Transfusion Reactions: No Reported Reaction Past Psychological History: No Psychological Hx Reported Smoking Status: Former smoker Past Alcohol Use History: Occasional Past Drug Use History: None Reported - Past Family History Sister(s) Family Medical History: Cancer Additional Family Medical History / Comment(s): colon Brother(s) Family Medical History: Cancer Additional Family Medical History / Comment(s): colon General Exam - General Exam Comments Initial Comments: General: Appears in no acute distress. HEAD: Normal with no signs of head trauma. EYES: PERRLA, EOMI, conjunctiva normal, no discharge. ENT: Hearing grossly intact, normal oropharynx. RESPIRATORY: Clear breath sounds bilaterally. No wheezes, rales, or rhonchi. C/V: Bradycardia with an irregular rhythm. S1 and S2 auscultated, no edema, peripheral pulses 2+ and intact throughout ABD: Abd is soft, nontender, nondistended EXT: Normal range of motion, no obvious deformity SKIN: No rashes or lesions observed on exposed skin. NEURO: Alert and oriented x 4. Cranial nerves II-XII intact. No focal sensory or strength deficits. GCS 15. Limitations: no limitations Course Vital Signs 08/09/24 08/09/24 08/09/24 15:44 17:02 20:24 Temperature 97.5 F L 98.2 F Pulse Rate 54 L 52 L 62 Respiratory 16 18 18 Rate Blood Pressure 177/65 191/82 167/92 O2 Sat by Pulse 98 97 99 Oximetry 08/09/24 21:24 Temperature Pulse Rate 71 Respiratory 18 Rate Blood Pressure 154/63 O2 Sat by Pulse 99 Oximetry Medical Decision Making - Medical Decision Making Was pt. sent in by a medical professional or institution (REILLY Wilson, MARKETING DESIGNER, urgent care, hospital, or long-term...) When possible be specific @ -No Did you speak to anyone other than the patient for history (EMS, parent, family, police, friend...)? What history was obtained from this source @ -No Did you review nursing and triage notes (agree or disagree)? Why? @ -I reviewed and agree with nursing and triage notes Were old charts reviewed (outside hosp., previous admission, EMS record, old EKG, old radiological studies, urgent care reports/EKG's, long-term records)? Report findings @ -All charts reviewed including EKG from January 2023 which does document a slow atrial fibrillation at heart rate of 40 Differential Diagnosis (chest pain, altered mental status, abdominal pain women, abdominal pain men, vaginal bleeding, weakness, fever, dyspnea, syncope, headache, dizziness, GI bleed, back pain, seizure, CVA, palpatations, mental health, musculoskeletal)? @ -Symptomatic bradycardia, electrolyte abnormality, asymptomatic hypertension. This list is not all inclusive. EKG interpreted by me (3pts min.). @ -As above X-rays interpreted by me (1pt min.). @ -Chest x-ray reveals no obvious acute cardiopulmonary process. CT interpreted by me (1pt min.). @ -None done U/S interpreted by me (1pt. min.). @ -None done What testing was considered but not performed or refused? (CT, X-rays, U/S, labs)? Why? @ -None What meds were considered but not given or refused? Why? @ -None Did you discuss the management of the patient with other professionals (professionals i.e. REILLY Wilson, MARKETING DESIGNER, lab, RT, psych nurse, licensed clinical social worker, tube puller, teacher, special forces warrant officer, briefcase sewer)? Give summary @ -Spoke with who accepted the admission. Was smoking cessation discussed for >3mins.? @ -No Was critical care preformed (if so, how long)? @ -No Were there social determinants of health that impacted care today? How? (Homelessness, low income, unemployed, alcoholism, drug addiction, transportation, low edu. Level, literacy, decrease access to med. care, long-term, rehab)? @ -No Was there de-escalation of care discussed even if they declined (Discuss DNR or withdrawal of care, Hospice)? DNR status @ -No What co-morbidities impacted this encounter? (DM, HTN, Smoking, COPD, CAD, Cancer, CVA, ARF, Chemo, Hep., AIDS, mental health diagnosis, sleep apnea, morbid obesity)? @ -Atrial fibrillation Was patient admitted / discharged? Hospital course, mention meds given and route, prescriptions, significant lab abnormalities, going to OR and other pertinent info. @ -Presents with bradycardia. Currently has no symptoms. We will obtain general workup. He was in agreement this plan. Vital signs are within acceptable limits. Mildly hypertensive and given antihypertensive medication. EKG shows no signs of acute ischemia. He is bradycardic but has a history of this when compared with prior EKGs. Labs are within acceptable limits. Chest x-ray unremarkable. On reevaluation, patient received a dose of hydralazine and had some chest discomfort just prior. Blood pressure minimally responded. We did decide to admit the patient at this time and he was in agreement this plan. Chest discomfort resolved on its own. He was given 324 milligrams of aspirin. We will admit the patient and trend the troponin. First troponin was undetectable. Cardiology consulted. I spoke with the admitting physician, Dr. Pitts who accepted the admission. Undiagnosed new problem with uncertain prognosis? @ -No Drug Therapy requiring intensive monitoring for toxicity (Heparin, Nitro, Insulin, Cardizem)? @ -No Were any procedures done? @ -No Diagnosis/symptom? @ -Bradycardia, hypertension, chest pain Acute, or Chronic, or Acute on Chronic? @ -Acute Uncomplicated (without systemic symptoms) or Complicated (systemic symptoms)? @ -complicated Side effects of treatment? @ -No Exacerbation, Progression, or Severe Exacerbation? @ -No Poses a threat to life or bodily function? How? (Chest pain, [place], [place], pneumonia, PE, COPD, DKA, ARF, appy, cholecystitis, CVA, Diverticulitis, Homicidal, Suicidal, threat to staff... and all critical care pts) @ -Potentially, yes - Lab Data Result diagrams: 08/09/24 16:48 08/09/24 16:48 Lab Results 08/09/24 08/09/24 08/09/24 Range/Units 16:48 16:48 16:48 WBC 5.17 (4.50-10.00) 10*3/uL RBC 3.76 L (4.40-5.60) 10*6/uL Hgb 11.8 L (13.0-17.0) g/dL Hct 34.7 L (39.6-50.0) % MCV 92.3 (80.0-97.0) fL MCH 31.4 (27.0-32.0) pg MCHC 34.0 (32.0-37.0) g/dL Plt Count 171 (140-440) 10*3/uL MPV 10.9 (9.5-12.2) fL Immature Gran % (Auto) 0.6 % Neutrophils % 63.2 % Lymphocytes % 23.0 % Monocytes % 9.3 % Eosinophils % 3.1 % Basophils % 0.8 % Immature Gran # 0.03 (0.00-0.04) 10*3/uL Neutrophils # 3.27 (1.80-7.70) 10*3/uL Lymphocytes # 1.19 (0.90-5.00) 10*3/uL Monocytes # 0.48 (0.20-1.00) 10*3/uL Eosinophils # 0.16 (0.04-0.35) 10*3/uL Basophils # 0.04 (0.00-0.10) 10*3/uL PT 12.5 (10.0-12.5) sec INR 1.2 H (<1.2) APTT 25.9 (22.0-30.0) sec Sodium 131 L (137-145) mmol/L Potassium 4.4 (3.5-5.1) mmol/L Chloride 97 L (98-107) mmol/L Carbon Dioxide 26 (22-30) mmol/L Anion Gap 8 mmol/L BUN 15 (9-20) mg/dL Creatinine 0.58 L (0.66-1.25) mg/dL Est GFR (CKD-EPI)AfAm >90 (>60 ml/min/1.73 sqM) Est GFR (CKD-EPI)NonAf >90 (>60 ml/min/1.73 sqM) Glucose 104 H (74-99) mg/dL Calcium 10.2 (8.4-10.2) mg/dL Magnesium 1.9 (1.6-2.3) mg/dL Total Bilirubin 0.5 (0.2-1.3) mg/dL AST 29 (17-59) U/L ALT 20 (4-49) U/L Alkaline Phosphatase 85 (38-126) U/L Troponin I (0.000-0.034) ng/mL Total Protein 6.7 (6.3-8.2) g/dL Albumin 4.2 (3.5-5.0) g/dL TSH 1.250 (0.465-4.680) mIU/L Urine Color Urine Appearance (Clear) Urine pH (5.0-8.0) Ur Specific [place] (1.001-1.035) Urine Protein (Negative) Urine Glucose (UA) (Negative) Urine Ketones (Negative) Urine Blood (Negative) Urine Nitrite (Negative) Urine Bilirubin (Negative) Urine Urobilinogen (<2.0) mg/dL Ur Leukocyte Esterase (Negative) 08/09/24 08/09/24 Range/Units 17:39 20:04 WBC (4.50-10.00) 10*3/uL RBC (4.40-5.60) 10*6/uL Hgb (13.0-17.0) g/dL Hct (39.6-50.0) % MCV (80.0-97.0) fL MCH (27.0-32.0) pg MCHC (32.0-37.0) g/dL Plt Count (140-440) 10*3/uL MPV (9.5-12.2) fL Immature Gran % (Auto) % Neutrophils % % Lymphocytes % % Monocytes % % Eosinophils % % Basophils % % Immature Gran # (0.00-0.04) 10*3/uL Neutrophils # (1.80-7.70) 10*3/uL Lymphocytes # (0.90-5.00) 10*3/uL Monocytes # (0.20-1.00) 10*3/uL Eosinophils # (0.04-0.35) 10*3/uL Basophils # (0.00-0.10) 10*3/uL PT (10.0-12.5) sec INR (<1.2) APTT (22.0-30.0) sec Sodium (137-145) mmol/L Potassium (3.5-5.1) mmol/L Chloride (98-107) mmol/L Carbon Dioxide (22-30) mmol/L Anion Gap mmol/L BUN (9-20) mg/dL Creatinine (0.66-1.25) mg/dL Est GFR (CKD-EPI)AfAm (>60 ml/min/1.73 sqM) Est GFR (CKD-EPI)NonAf (>60 ml/min/1.73 sqM) Glucose (74-99) mg/dL Calcium (8.4-10.2) mg/dL Magnesium (1.6-2.3) mg/dL Total Bilirubin (0.2-1.3) mg/dL AST (17-59) U/L ALT (4-49) U/L Alkaline Phosphatase (38-126) U/L Troponin I <0.012 (0.000-0.034) ng/mL Total Protein (6.3-8.2) g/dL Albumin (3.5-5.0) g/dL TSH (0.465-4.680) mIU/L Urine Color Colorless Urine Appearance Clear (Clear) Urine pH 7.0 (5.0-8.0) Ur Specific [place] 1.007 (1.001-1.035) Urine Protein Negative (Negative) Urine Glucose (UA) Negative (Negative) Urine Ketones Negative (Negative) Urine Blood Negative (Negative) Urine Nitrite Negative (Negative) Urine Bilirubin Negative (Negative) Urine Urobilinogen <2.0 (<2.0) mg/dL Ur Leukocyte Esterase Negative (Negative) - EKG Data -: EKG Interpreted by Me EKG Comments: 12-lead Electrocardiogram Interpretation Note EKG was reviewed and interpreted by myself. 12-lead ECG performed at 1657 is interpreted by me as revealing atrial fibrillation with slow ventricular response at a rate of 40 beats per minute. [place] is normal. QRS duration 108 ms, QTc is 397 ms.. There were no ST or T wave abnormalities to suggest myocardial ischemia or injury. R wave progression across the precordium was satisfactory. By my interpretation this EKG is non-diagnostic for acute ischemia. 12-lead Electrocardiogram Interpretation Note EKG was reviewed and interpreted by myself. 12-lead ECG performed at 1926 is interpreted by me as revealing atrial fibrillation at a rate of 63 beats per minute. [place] normal. QRS durations 115 ms, QTc is 1443 ms.. There were no ST or T wave abnormalities to suggest myocardial ischemia or injury. R wave progression across the precordium was satisfactory. By my interpretation this EKG is non-diagnostic for acute ischemia. Disposition Clinical Impression: Bradycardia, Hypertension, Chest pain Disposition: ADMITTED IP TO THIS HOSP Condition: Stable Time of Disposition: 21:12
[2024-08-09] MEDS ORDERED: ALBUTEROL NEBULIZED 2.5 MG/3 ML INHALATION PRN (20:06)
[2024-08-09 20:25] VITALS: TEMP 98.2
[2024-08-09] MEDS: ASPIRIN 81 MG PO STA (20:25)
[2024-08-09] MEDS: GABAPENTIN 100 MG CAP PO SCH (20:26)
[2024-08-09] MEDS ORDERED: NALOXONE 0.4 MG/ML 1 ML VIAL IV PRN (20:49)
[2024-08-09] MEDS ORDERED: hydrALAZINE HCL 20 MG/ML 1 ML VIAL IVP PRN (21:06)
--- NOTE | 2024-08-09 21:10 | P.HPIM ---
History of Present Illness H&P Date: 08/09/24 Chief Complaint: Low heart rate and lightheadedness This is an 89-year-old male patient with a past medical history of chronic A-fib and chronically anticoagulated on Pradaxa, essential hypertension, arthritis and GERD along with asthma who presents to the ER with CC of low heart rate and lightheadness . Patient reports that he has been taking his medications as usual. He did report that his symptoms were associated with left-sided sharp chest pain, moderate in severity, nonradiating, associated with palpitations and lightheadedness and not related to exertion. It is reproducible with palpation . No reports of fever or chills. No history of DVT/PE. He does take Pradaxa due to history of A-fib and does take atenolol. Upon arrival to the ED, he was hypertensive with a systolic blood pressure of 190 and his heart rate was 54. EKG was done showing A-fib with slow ventricular rate at a rate of 40 bpm. His current heart rate is around 55-60 . No signs of acute ischemia. Labs done showing a sodium level of 131, kidney function normal, troponin not elevated, TSH 1.2. Urinalysis not remarkable. CBC with a hemoglobin of 11.8. Chest x- ray unremarkable. Patient will be admitted under observation for cardiology evaluation Review of system : Negative except what mentioned HPI PE: General: nontoxic, no distress, appears at stated age Derm: warm, dry, intact Head: atraumatic, normocephalic, symmetric Eyes: EOMI, anicteric sclera Mouth: no lip lesion, mucus membranes moist Cardiovascular: S1 S2 reg, no murmur, rubs, or gallops , irregular rhythm, bradycardic Lungs: CTA bilateral, no rales, no accessory muscle use Abdominal: soft, non-tender to palpataion, no appreciable organomegaly Extremities: +1 pitting edema bilaterally Assessment and plan : - Presyncopal symptoms with lightheadedness and dizziness /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 : Patient presented with a heart rate around 40-50 TSH within normal limit Will order orthostatic blood pressure measurement Cardiology consulted Will order echocardiogram Will hold atenolol for now -Chest pain : Likely musculoskeletal in nature v.s ACS Patient reports that his pain is reproducible with palpation Initial troponin was not elevated Cardiology consulted Echocardiogram -Accelerated hypertension : Continue home antihypertensive medication IV hydralazine as needed -Chronic A-fib with slow ventricular rate : Hold atenolol for now Continue with anticoagulation -Mild intermittent asthma : Not in exacerbation Albuterol as needed DVT prophylaxis on oral anticoagulation CODE STATUS is full code Disposition : Likely home when patient is stable. Will have PT evaluate patient as patient reported a mechanical fall back in March Time spent : 60 min Past Medical History Past Medical History: Atrial Fibrillation, Asthma, Diabetes Mellitus, GERD/Reflux, Hypertension, Osteoarthritis (OA) Additional Past Medical History / Comment(s): cellulitis and wound rt heel, hx. colon polyps, GERD, glaucoma, borderline diabetes mellitus History of Any Multi-Drug Resistant Organisms: None Reported Past Surgical History: Heart Catheterization, Hernia Repair Additional Past Surgical History / Comment(s): colonoscopies, Cataracts Past Anesthesia/Blood Transfusion Reactions: No Reported Reaction Past Psychological History: No Psychological Hx Reported Smoking Status: Former smoker Past Alcohol Use History: Occasional Past Drug Use History: None Reported - Past Family History Sister(s) Family Medical History: Cancer Additional Family Medical History / Comment(s): colon Brother(s) Family Medical History: Cancer Additional Family Medical History / Comment(s): colon Medications and Allergies Home Medications Medication Instructions Recorded Confirmed Type Latanoprost Ophth [Xalatan 0.005%] 1 drop BOTH EYES HS 03/30/17 08/09/24 History atenoloL [Tenormin] 25 mg PO DAILY 03/30/17 08/09/24 History hydroCHLOROthiazide [Hydrodiuril] 25 mg PO DAILY 05/24/20 08/09/24 History Cholecalciferol [Vitamin D3 (25 25 mcg PO DAILY 07/31/21 08/09/24 History Mcg = 1000 Iu)] Dabigatran Etexilate Mesylate 75 mg PO BID 07/31/21 08/09/24 History [Pradaxa] Fluticasone Propion/Salmeterol 1 puff INHALATION RT-BID 07/31/21 08/09/24 History [Wixela 250-50 Inhub] Losartan Potassium 100 mg PO DAILY 07/31/21 08/09/24 History Albuterol Sulfate [Ventolin HFA] 2 puff INHALATION RT-Q4H PRN 08/09/24 08/09/24 History Ascorbic Acid [Vitamin C] 500 mg PO DAILY 08/09/24 08/09/24 History Gabapentin [Neurontin] 100 mg PO BID 08/09/24 08/09/24 History Allergies Allergy/AdvReac Type Severity Reaction Status Date / Time codeine Allergy MOUTH Verified 08/09/24 16:22 SWELLING Penicillins Allergy facial Verified 08/09/24 16:22 swelling Physical Exam Vitals: Vital Signs Temp Pulse Resp BP Pulse Ox 08/09/24 20:24 98.2 F 62 18 167/92 99 08/09/24 17:02 52 L 18 191/82 97 08/09/24 15:44 97.5 F L 54 L 16 177/65 98 Intake and Output 08/09/24 08/09/24 08/09/24 06:59 14:59 22:59 Other: Weight 63.503 kg Results CBC & Chem 7: 08/09/24 16:48 08/09/24 16:48 Labs: Abnormal Lab Results - Last 24 Hours (Table) 08/09/24 08/09/24 08/09/24 Range/Units 16:48 16:48 16:48 RBC 3.76 L (4.40-5.60) 10*6/uL Hgb 11.8 L (13.0-17.0) g/dL Hct 34.7 L (39.6-50.0) % INR 1.2 H (<1.2) Sodium 131 L (137-145) mmol/L Chloride 97 L (98-107) mmol/L Creatinine 0.58 L (0.66-1.25) mg/dL Glucose 104 H (74-99) mg/dL
[2024-08-09] MEDS: LATANOPROST 0.005% OPHTH DROPS 2.5 ML BTL BOTH EYES SCH (21:17)
[2024-08-09] MEDS: DABIGATRAN 75 MG CAP PO SCH (21:17)
[2024-08-09] MEDS: SODIUM CHLORIDE 0.9% 1,000 ML IV SCH (21:20)
[2024-08-10 04:39] LABS: Basophils # (A) 0.04 10*3/uL (0.00-0.10); Basophils % (A) 0.8 %; Eosinophils # (A) 0.17 10*3/uL (0.04-0.35); Eosinophils % (A) 3.3 %; HCT 33.3 % (39.6-50.0); Lymphocytes # (A) 0.87 10*3/uL (0.90-5.00); Lymphocytes % (A) 16.8 %; MCH 30.9 pg (27.0-32.0); MCV 93.5 fL (80.0-97.0); Mean Platelet Volume 10.1 fL (9.5-12.2); Monocytes # (A) 0.48 10*3/uL (0.20-1.00); Monocytes % (A) 9.2 %; Neutrophils # (A) 3.62 10*3/uL (1.80-7.70); Neutrophils % (A) 69.7 %; Platelet Count 161 10*3/uL (140-440); RBC 3.56 10*6/uL (4.40-5.60); RDW 12.5 % (11.5-14.5); WBC 5.19 10*3/uL (4.50-10.00)
[2024-08-10 05:12] LABS: ALT 17 U/L (4-49); AST 36 U/L (17-59); African American GFR (CKD) >90 (>60 ml/min/1.73 sqM); Albumin 3.5 g/dL (3.5-5.0); Alkaline Phosphatase 86 U/L (38-126); Anion Gap 8 mmol/L; Blood Urea Nitrogen 12 mg/dL (9-20); Calcium 9.7 mg/dL (8.4-10.2); Carbon Dioxide 25 mmol/L (22-30); Chloride 101 mmol/L (98-107); Glucose 105 mg/dL (74-99); Non-African American GFR(CKD) >90 (>60 ml/min/1.73 sqM); Potassium 3.9 mmol/L (3.5-5.1); Sodium 134 mmol/L (137-145); Total Bilirubin 0.6 mg/dL (0.2-1.3); Total Protein 5.8 g/dL (6.3-8.2)
[2024-08-10] MEDS ORDERED: atenoloL 25 MG TAB PO SCH (09:00)
[2024-08-10 09:16] VITALS: RESP 16
[2024-08-10] MEDS: hydroCHLOROthiazide 25 MG TAB PO SCH (09:24)
[2024-08-10] MEDS: LOSARTAN 50 MG TAB PO SCH (09:25)
[2024-08-10] MEDS: SYMBICORT 80-4.5 MCG INHALER INHALATION SCH (09:41)
--- NOTE | 2024-08-10 09:47 | P.CRDCN ---
History of Present Illness History of present illness: HISTORY OF PRESENT ILLNESS: This is a 89-year-old male with a past medical history significant for normal coronary arteries, permanent atrial fibrillation, hypertension, and former nicotine dependence. Patient follows in the office with Dr. Davila. We have been asked to see the patient in consultation for bradycardia. Patient examined at the bedside. Patient states he was at Dr. Susan Mratinez's office when he was noted to have elevated blood pressure. He was instructed to keep an eye on his blood pressure. He states the next morning he called his PCP and went and to be seen. He was found to be bradycardic with an EKG was performed and he was directed to come to the emergency room. The patient does report having some lightheadedness initially that has since resolved. The patient was taking atenolol 25 mg on an outpatient basis which has been discontinued. At the time of examination he is in atrial fibrillation with heart rate in the 60s. No complaints of chest pain or shortness of breath. DIAGNOSTICS: - EKG reveals atrial fibrillation with slow ventricular rate. Repeat EKG reveals A-fib with heart rate in the 60s. - Chest xray chronic changes without acute pulmonary process. No significant change from prior. - Laboratory data: WBC 5.19. Hemoglobin 11.0. Platelet count 161. Sodium 134. Potassium 3.9. BUN 12. Creatinine 0.47. Troponin negative x 3. TSH 1.250 - Current home cardiac medications include hydrochlorothiazide 25 mg daily, losartan 100 mg daily, Pradaxa 75 mg twice a day - Most recent echocardiogram obtained in March 2021 revealed normal EF, mild MR, mild AR, moderate TR - Cardiac catheterization history: 2003 revealing normal coronary arteries REVIEW OF SYSTEMS: At the time of my exam: CONSTITUTIONAL: Denies fever or chills. HEENT: Denies blurred vision, vision changes, or eye pain. Denies hemoptysis CARDIOVASCULAR: Denies chest pain. Denies orthopnea. Denies PND. Denies palpitations RESPIRATORY: Denies shortness of breath. GASTROINTESTINAL: Denies abdominal pain. Denies nausea or vomiting. HEMATOLOGIC: Denies bleeding disorders. GENITOURINARY: Denies any blood in urine. SKIN: Denies pruitis. Denies rash. PHYSICAL EXAM: VITAL SIGNS: Reviewed. GENERAL: Well-developed in no acute distress. HEENT: Head is normocephalic. Pupils are equal, round. Sclerae anicteric. Mucous membranes of the mouth are moist. Neck supple. No JVD or thyromegaly LUNGS: Respirations even and unlabored. Lungs essentially clear to auscultation bilaterally. HEART: Irregular rate and rhythm. S1 and S2 heard. ABDOMEN: Soft. Nondistended. Nontender. EXTREMITIES: Normal range of motion. No clubbing or cyanosis. Peripheral pulses intact. No lower extremity edema NEUROLOGIC: Awake and alert. Oriented x 3. ASSESSMENT: Dizziness Bradycardia, on atenolol patient, resolved Permanent atrial fibrillation with controlled ventricular rate Normal coronary arteries, per cath 2003 Hypertension Former nicotine dependence PLAN: No need to obtain echocardiogram at this time Continue to hold atenolol. Do not resume upon discharge Patient is stable for discharge home today from a cardiac standpoint Patient to follow-up in the office with Dr. Davila Nurse practitioner note has been reviewed by physician. Signing provider agrees with the documented findings, assessment, and plan of care documented by [employer] AD[employer] as a scribe. Past Medical History Past Medical History: Atrial Fibrillation, Asthma, Diabetes Mellitus, GERD/Reflux, Hypertension, Osteoarthritis (OA) Additional Past Medical History / Comment(s): cellulitis and wound rt heel, hx. colon polyps, GERD, glaucoma, borderline diabetes mellitus History of Any Multi-Drug Resistant Organisms: None Reported Past Surgical History: Heart Catheterization, Hernia Repair Additional Past Surgical History / Comment(s): colonoscopies, Cataracts Past Anesthesia/Blood Transfusion Reactions: No Reported Reaction Past Psychological History: No Psychological Hx Reported Smoking Status: Former smoker Past Alcohol Use History: Occasional Past Drug Use History: None Reported - Past Family History Sister(s) Family Medical History: Cancer Additional Family Medical History / Comment(s): colon Brother(s) Family Medical History: Cancer Additional Family Medical History / Comment(s): colon Medications and Allergies Home Medications Medication Instructions Recorded Confirmed Type Latanoprost Ophth [Xalatan 0.005%] 1 drop BOTH EYES HS 03/30/17 08/09/24 History hydroCHLOROthiazide [Hydrodiuril] 25 mg PO DAILY 05/24/20 08/09/24 History Cholecalciferol [Vitamin D3 (25 25 mcg PO DAILY 07/31/21 08/09/24 History Mcg = 1000 Iu)] Dabigatran Etexilate Mesylate 75 mg PO BID 07/31/21 08/09/24 History [Pradaxa] Fluticasone Propion/Salmeterol 1 puff INHALATION RT-BID 07/31/21 08/09/24 History [Wixela 250-50 Inhub] Losartan Potassium 100 mg PO DAILY 07/31/21 08/09/24 History Albuterol Sulfate [Ventolin HFA] 2 puff INHALATION RT-Q4H PRN 08/09/24 08/09/24 History Ascorbic Acid [Vitamin C] 500 mg PO DAILY 08/09/24 08/09/24 History Gabapentin [Neurontin] 100 mg PO BID 08/09/24 08/09/24 History Allergies Allergy/AdvReac Type Severity Reaction Status Date / Time codeine Allergy MOUTH Verified 08/09/24 16:22 SWELLING Penicillins Allergy facial Verified 08/09/24 16:22 swelling Physical Exam Vitals: Vital Signs Temp Pulse Resp BP Pulse Ox 08/10/24 09:09 98.2 F 61 16 180/80 98 08/10/24 05:00 74 15 153/70 98 08/10/24 04:00 53 L 15 114/40 94 L 08/10/24 03:00 72 22 127/77 97 08/10/24 02:00 62 18 127/52 96 08/10/24 01:00 64 23 130/56 95 08/09/24 21:24 71 18 154/63 99 08/09/24 20:24 98.2 F 62 18 167/92 99 08/09/24 17:02 52 L 18 191/82 97 08/09/24 15:44 97.5 F L 54 L 16 177/65 98 Intake and Output 08/09/24 08/10/24 08/10/24 22:59 06:59 14:59 Other: Weight 63.503 kg Results 08/10/24 04:22 08/10/24 04:22 Cardiac Enzymes 08/09/24 08/09/24 08/10/24 Range/Units 16:48 20:04 00:42 AST 29 (17-59) U/L Troponin I <0.012 <0.012 (0.000-0.034) ng/mL 08/10/24 08/10/24 Range/Units 04:22 04:22 AST 36 (17-59) U/L Troponin I 0.012 (0.000-0.034) ng/mL Coagulation 08/09/24 Range/Units 16:48 PT 12.5 (10.0-12.5) sec APTT 25.9 (22.0-30.0) sec CBC 08/09/24 08/10/24 Range/Units 16:48 04:22 WBC 5.17 5.19 (4.50-10.00) 10*3/uL RBC 3.76 L 3.56 L (4.40-5.60) 10*6/uL Hgb 11.8 L 11.0 L (13.0-17.0) g/dL Hct 34.7 L 33.3 L (39.6-50.0) % Plt Count 171 161 (140-440) 10*3/uL Comprehensive Metabolic Panel 08/09/24 08/10/24 Range/Units 16:48 04:22 Sodium 131 L 134 L (137-145) mmol/L Potassium 4.4 3.9 (3.5-5.1) mmol/L Chloride 97 L 101 (98-107) mmol/L Carbon Dioxide 26 25 (22-30) mmol/L BUN 15 12 (9-20) mg/dL Creatinine 0.58 L 0.47 L (0.66-1.25) mg/dL Glucose 104 H 105 H (74-99) mg/dL Calcium 10.2 9.7 (8.4-10.2) mg/dL AST 29 36 (17-59) U/L ALT 20 17 (4-49) U/L Alkaline Phosphatase 85 86 (38-126) U/L Total Protein 6.7 5.8 L (6.3-8.2) g/dL Albumin 4.2 3.5 (3.5-5.0) g/dL Current Medications Generic Name Dose Route Start Last Admin Trade Name Freq PRN Reason Stop Dose Admin Albuterol Sulfate 2.5 mg 08/09/24 20:06 Albuterol Nebulized 2.5 Mg/3 Ml INHALATION RT-Q4H PRN Shortness Of Breath Budesonide/Formoterol Fumarate 2 puff 08/10/24 08:00 08/10/24 09:41 Symbicort 80-4.5 Mcg Inhaler INHALATION 2 puff RT-BID NAYLA Administration Dabigatran 75 mg 08/09/24 21:00 08/09/24 21:17 Dabigatran 75 Mg Cap PO 75 mg BID NAYLA Administration Protocol Gabapentin 100 mg 08/09/24 21:00 08/10/24 09:24 Gabapentin 100 Mg Cap PO 100 mg BID NAYLA Administration Hydrochlorothiazide 25 mg 08/10/24 09:00 08/10/24 09:24 Hydrochlorothiazide 25 Mg Tab PO 25 mg DAILY NAYLA Administration Sodium Chloride 1,000 mls @ 75 mls/hr 08/09/24 21:15 08/09/24 21:20 Saline 0.9% IV 75 mls/hr .[id number] NAYLA Administration Latanoprost 1 drops 08/09/24 21:00 08/09/24 21:17 Latanoprost 0.005% Ophth Drops 2.5 Ml Btl BOTH EYES 1 drops HS NAYLA Administration Losartan Potassium 100 mg 08/10/24 09:00 08/10/24 09:25 Losartan 50 Mg Tab PO 100 mg DAILY NAYLA Administration Naloxone HCl 0.2 mg 08/09/24 20:49 Naloxone 0.4 Mg/Ml 1 Ml Vial IV Q2M PRN Opioid Reversal Intake and Output 08/09/24 08/10/24 08/10/24 22:59 06:59 14:59 Other: Weight 63.503 kg 08/10/24 04:22 08/10/24 04:22
--- NOTE | 2024-08-10 11:07 | P.DS ---
Providers Date of admission: 08/09/24 20:49 Expected date of discharge: 08/10/24 Attending physician: Adarsh Pitts MD Consults: 08/09/24 20:54 Consult Physician Routine Consulting Provider: [facility] Consult Reason/Comments: chest pain, bradycardia Do you want consulting provider notified?: Yes Primary care physician: [facility] Course: Discharge Diagnosis: Symptomatic bradycardia with presyncopal episode. EKG completed showing atrial fibrillation with a slow ventricular rate of 40 bpm. Chest x-ray completed showing chronic changes but negative for acute cardiopulmonary process. Troponins were trended overnight all negative at less than 0.012 x 3 draws. Repeat EKG completed showing atrial fibrillation with a controlled ventricular rate of 63 bpm. Blood pressure increasing up to 191/82 and currently 180/80 with heart rate of 61 prior to morning antihypertensive medication administration. Patient was evaluated by cardiology stated no need to obtain repeat echocardiogram at this time in agreement with holding of atenolol and discontinuing upon discharge, recommending no further cardiac medication changes at this time. Cardiology clearing patient from cardiac perspective for discharge recommending outpatient follow-up in their office with Dr. Davila in 1 week. Patient is medically optimized at this time, free from any complaints including headache, lightheadedness, dizziness, chest pain, palpitations, shortness of breath, or exertional dyspnea. He denies any numbness/tingling/weakness in his extremities and is ambulatory at baseline without difficulties. Discussed discharge instructions with patient and for family members at bedside. Atenolol discontinued and patient to follow-up outpatient with PCP in 1 to 2 days and with film processor in 1 week. Chest pain, acute coronary event ruled out. Chronic atrial fibrillation Hypertension Hospital Course: Patient is a very pleasant 89-year-old male with a past medical history of chronic atrial fibrillation on anticoagulation with Pradaxa, hypertension, asthma/COPD and former nicotine dependence. He follows outpatient with film processor, Dr. Davila. Patient presented to the emergency department at 08/09/2024 as directed by his primary care provider for concerns of dizziness/lightheadedness and bradycardia with an isolated episode of sharp chest pain. Upon arrival to our facility, patient underwent evaluation in the emergency department. Vital signs upon arrival show blood pressure 177/65, heart rate 54, respiratory rate 16, temp 97.5 F, and SpO2 of 98% on room air. EKG completed showing atrial fibrillation with a slow ventricular rate of 40 bpm. Chest x-ray completed showing chronic changes but negative for acute cardiopulmonary process. Labs completed and reviewed. CBC showing normocytic anemia with hemoglobin of 11.8. Coagulation profile showing elevated INR 1.2 otherwise normal findings. BMP showing hypochloremic hyponatremia with sodium of 131 and chloride of 97. Blood glucose 104. Magnesium 1.9. Liver profile unremarkable. TSH normal findings at 1.250. Patient admitted under services with consultation to cardiology. Troponins were trended overnight all negative at less than 0.012 x 3 draws. Repeat EKG completed showing atrial fibrillation with a controlled ventricular rate of 63 bpm. Blood pressure increasing up to 191/82 and currently 180/80 with heart rate of 61 prior to morning antihypertensive medication administration. Patient was evaluated by cardiology stated no need to obtain repeat echocardiogram at this time in agreement with holding of atenolol and discontinuing upon discharge, recommending no further cardiac medication changes at this time. Cardiology clearing patient from cardiac perspective for discharge recommending outpatient follow-up in their office with Dr. Davila in 1 week. Physical exam: Patient seen and examined at bedside. Vital signs reviewed and stable. General: Nontoxic, no distress and appears stated age. Derm: Skin warm and dry, normal coloration for ethnicity. Head: Atraumatic, normocephalic and symmetric. Eyes: EOM's intact, no lid lag, and anicteric sclera Mouth: no lip lesions, mucus membranes moist Cardiovascular: Irregularly irregular, systolic murmur, positive posterior tibial pulses bilaterally, and cap refill < 2 seconds. Lungs: Respirations even, regular, and unlabored on room air. Lungs CTA bilaterally, no rhonchi, no rales, no wheezing, and no accessory muscle usage. Abdominal: soft, nontender to palpation, no guarding, no appreciable organom egaly Ext: ROM intact. No gross muscle atrophy, no edema, no contractures Neuro: Speech clear, face symmetrical and CN II-XII grossly intact with no noted focal neuro deficits Psych: Alert and oriented to person, place, time, and situation. Appropriate and pleasant affect. A total of 35 minutes of time were spent preparing this complex discharge summary. Pt was discharged on 08/10/2024 at 11:06 AM Patient was seen independently by Nurse Practitioner. This document was prepared using [employer] dictation software. Please allow for errors in oracle pl sql developer while rare they do occur. Zak Gaona NP rendered care for this patient independently, reviewed the findings and plan as documented in the note above. I did not physically speak with or examine the patient on this date. Patient Condition at Discharge: Stable Plan - Discharge Summary New Discharge Prescriptions: Continue Gabapentin [Neurontin] 100 mg PO BID Albuterol Sulfate [Ventolin HFA] 2 puff INHALATION RT-Q4H PRN PRN Reason: Shortness Of Breath Ascorbic Acid [Vitamin C] 500 mg PO DAILY Discontinued atenoloL [Tenormin] 25 mg PO DAILY No Action Latanoprost Ophth [Xalatan 0.005%] 1 drop BOTH EYES HS hydroCHLOROthiazide [Hydrodiuril] 25 mg PO DAILY Fluticasone Propion/Salmeterol [Wixela 250-50 Inhub] 1 puff INHALATION RT-BID Losartan Potassium 100 mg PO DAILY Cholecalciferol [Vitamin D3 (25 Mcg = 1000 Iu)] 25 mcg PO DAILY Dabigatran Etexilate Mesylate [Pradaxa] 75 mg PO BID Discharge Medication List Latanoprost Ophth [Xalatan 0.005%] 1 drop BOTH EYES HS 03/30/17 [History] hydroCHLOROthiazide [Hydrodiuril] 25 mg PO DAILY 05/24/20 [History] Cholecalciferol [Vitamin D3 (25 Mcg = 1000 Iu)] 25 mcg PO DAILY 07/31/21 [History] Dabigatran Etexilate Mesylate [Pradaxa] 75 mg PO BID 07/31/21 [History] Fluticasone Propion/Salmeterol [Wixela 250-50 Inhub] 1 puff INHALATION RT-BID 07/31/21 [History] Losartan Potassium 100 mg PO DAILY 07/31/21 [History] Albuterol Sulfate [Ventolin HFA] 2 puff INHALATION RT-Q4H PRN 08/09/24 [History] Ascorbic Acid [Vitamin C] 500 mg PO DAILY 08/09/24 [History] Gabapentin [Neurontin] 100 mg PO BID 08/09/24 [History] Follow up Appointment(s)/Referral(s): Acacia Davila MD [STAFF PHYSICIAN] - 1 Week Angel Garcia MD [Primary Care Provider] - 1-2 days Patient Instructions/Handouts: Bradycardia (DC), Near Syncope (DC), Dizziness (GEN) Activity/Diet/Wound Care/Special Instructions: Activity: As tolerated. Take breaks as needed. Change positions slowly from lying to sitting, sitting before standing, and standing before walking. If you feel dizzy or lightheaded at any time please return to previous seated or lying position. Diet: Heart healthy and carb consistent diet. Special Instructions: Take all of your medications as directed and remember to keep all of your doctor's appointments and follow-up as needed. Your has been discontinued. Please ensure that this medication is removed from your other daily medications to prevent accidental taking. You will need to follow-up with your primary film processor, Dr. Davila in 1 week., Thank you for allowing us to participate in your care, it was truly a pleasure having you for our patient!!! Discharge Disposition: HOME SELF-CARE
[2024-08-10 11:52] VITALS: BP 164/104; PULSE 68
== END 2024-08-10 12:10 | disposition home or self-care (01) ==
LOC: EC 15:43 → 6NMEDSUR 20:49
PROVIDERS: ADMIT Student in an Organized Health Care Education/Training Program; ATTEND Student in an Organized Health Care Education/Training Program
DX: R00.1 Bradycardia, unspecified (principal); R07.89 Other chest pain; I48.21 Permanent atrial fibrillation; I10 Essential (primary) hypertension; I08.3 Combined rheumatic disorders of mitral, aortic and tricuspid valves; E87.1 Hypo-osmolality and hyponatremia; J45.20 Mild intermittent asthma, uncomplicated; J44.89 Other specified chronic obstructive pulmonary disease; E87.8 Other disorders of electrolyte and fluid balance, not elsewhere classified; E11.9 Type 2 diabetes mellitus without complications; K21.9 Gastro-esophageal reflux disease without esophagitis; M19.90 Unspecified osteoarthritis, unspecified site; D64.9 Anemia, unspecified; R60.9 Edema, unspecified; Z79.01 Long term (current) use of anticoagulants; Z79.51 Long term (current) use of inhaled steroids; Z79.899 Other long term (current) drug therapy; Z88.0 Allergy status to penicillin; Z88.5 Allergy status to narcotic agent; Z87.891 Personal history of nicotine dependence
CPT/HCPCS: 96376; 96361 ×2; 96374; 99285; 36415; 94640; 93005; 80053 ×2; 83735; 84443; 84484 ×2; 85025 ×2; 85610; 85730; 81003; 71046; G0378 ×2; J0360

== ENCOUNTER 2024-09-20 11:41 | Emergency (ER) | payer MEDICARE, BC ==
--- NOTE | 2024-09-20 12:17 | ED ---
General Adult HPI - General Chief complaint: Neuro Symptoms/Deficit Stated complaint: R sided numbness/pain Time Seen by Provider: 09/20/24 11:49 Source: patient, RN notes reviewed Mode of arrival: wheelchair Limitations: no limitations - History of Present Illness Initial comments: Patient is an 89-year-old male present to the emergency department with concerns with right sided back discomfort. Onset of symptoms was when he woke this morning. Symptoms somewhat worsened since that time. Discomfort increases with movement. Discomfort is right side of the back, from the upper to the lower. There is a little radiation towards the neck as well. No chest pain. No dyspnea. No weakness. - Related Data Home Medications Medication Instructions Recorded Confirmed Latanoprost Ophth [Xalatan 0.005%] 1 drop BOTH EYES HS 03/30/17 08/09/24 hydroCHLOROthiazide [Hydrodiuril] 25 mg PO DAILY 05/24/20 08/09/24 Cholecalciferol [Vitamin D3 (25 25 mcg PO DAILY 07/31/21 08/09/24 Mcg = 1000 Iu)] Dabigatran Etexilate Mesylate 75 mg PO BID 07/31/21 08/09/24 [Pradaxa] Fluticasone Propion/Salmeterol 1 puff INHALATION RT-BID 07/31/21 08/09/24 [Wixela 250-50 Inhub] Losartan Potassium 100 mg PO DAILY 07/31/21 08/09/24 Albuterol Sulfate [Ventolin HFA] 2 puff INHALATION RT-Q4H PRN 08/09/24 08/09/24 Ascorbic Acid [Vitamin C] 500 mg PO DAILY 08/09/24 08/09/24 Gabapentin [Neurontin] 100 mg PO BID 08/09/24 08/09/24 Previous Rx's Medication Instructions Recorded Cyclobenzaprine [Flexeril] 10 mg PO TID PRN #12 tablet 09/20/24 Allergies Allergy/AdvReac Type Severity Reaction Status Date / Time codeine Allergy MOUTH Verified 09/20/24 11:46 SWELLING Penicillins Allergy facial Verified 09/20/24 11:46 swelling Review of Systems ROS Statement: Those systems with pertinent positive or pertinent negative responses have been documented in the HPI. ROS Other: All systems not noted in ROS Statement are negative. Constitutional: Denies: fever Eyes: Denies: eye pain ENT: Denies: ear pain Respiratory: Denies: dyspnea Cardiovascular: Denies: chest pain Gastrointestinal: Denies: abdominal pain Musculoskeletal: Reports: as per HPI, back pain Neurological: Denies: headache, weakness Past Medical History Past Medical History: Atrial Fibrillation, Asthma, Diabetes Mellitus, GERD/Reflux, Hypertension, Osteoarthritis (OA) Additional Past Medical History / Comment(s): cellulitis and wound rt heel, hx. colon polyps, GERD, glaucoma, borderline diabetes mellitus History of Any Multi-Drug Resistant Organisms: None Reported Past Surgical History: Heart Catheterization, Hernia Repair Additional Past Surgical History / Comment(s): colonoscopies, Cataracts Past Anesthesia/Blood Transfusion Reactions: No Reported Reaction Past Psychological History: No Psychological Hx Reported Smoking Status: Former smoker Past Alcohol Use History: Occasional Past Drug Use History: None Reported - Past Family History Sister(s) Family Medical History: Cancer Additional Family Medical History / Comment(s): colon Brother(s) Family Medical History: Cancer Additional Family Medical History / Comment(s): colon General Exam Limitations: no limitations General appearance: alert, in no apparent distress Head exam: Present: normocephalic Eye exam: Present: normal appearance Neck exam: Present: normal inspection Respiratory exam: Present: normal lung sounds bilaterally. Absent: chest wall tenderness Cardiovascular Exam: Present: regular rate, irregular rhythm Expanded Peripheral pulses: 2+: Radial (R), Radial (L), Posterior Tibialis (R), Posterior Tibialis (L) GI/Abdominal exam: Present: soft. Absent: tenderness, pulsatile mass Back exam: Present: tenderness (Right lateral paralumbar diffusely) Neurological exam: Present: alert. Absent: motor sensory deficit Psychiatric exam: Present: normal affect, normal mood Skin exam: Present: normal color Course Vital Signs 09/20/24 09/20/24 11:43 13:00 Temperature 98.0 F Pulse Rate 71 68 Respiratory 18 16 Rate Blood Pressure 186/71 174/88 O2 Sat by Pulse 97 97 Oximetry EKG Findings - EKG Results: EKG: interpreted by ERMD (Left axis deviation. Septal Q waves. LVH criteria.), normal ST/T EKG shows: atrial fibrillation Medical Decision Making - Medical Decision Making Was pt. sent in by a medical professional or institution (, PA, [employer], urgent care, hospital, or fdc...) When possible be specific @ -No Did you speak to anyone other than the patient for history (EMS, parent, family, police, friend...)? What history was obtained from this source @ -No Did you review nursing and triage notes (agree or disagree)? Why? @ -I reviewed and agree with nursing and triage notes Were old charts reviewed (outside hosp., previous admission, EMS record, old EKG, old radiological studies, urgent care reports/EKG's, fdc records)? Report findings @ -No old charts were reviewed Differential Diagnosis (chest pain, altered mental status, abdominal pain women, abdominal pain men, vaginal bleeding, weakness, fever, dyspnea, syncope, headache, dizziness, GI bleed, back pain, seizure, CVA, palpatations, mental health, musculoskeletal)? @ -Differential Musculoskeletal Muscular strain, contusion, ligament sprain, fracture, arthritis, septic arthritis, bursitis, cellulitis, muscle spasm, nerve compression, DVT, arterial occlusion, herpes zoster, electrolyte abnormality, tumor.... This is not meant to be in all inclusive list EKG interpreted by me (3pts min.). @ -As above X-rays interpreted by me (1pt min.). @ -Chest x-ray does not reveal acute abnormality CT interpreted by me (1pt min.). @ -None done U/S interpreted by me (1pt. min.). @ -None done What testing was considered but not performed or refused? (CT, X-rays, U/S, labs)? Why? @ -None What meds were considered but not given or refused? Why? @ -None Did you discuss the management of the patient with other professionals (professionals i.e. , PA, [employer], lab, RT, psych nurse, social media director, box truck driver, teacher, major gifts officer, binder caser)? Give summary @ -No Was smoking cessation discussed for >3mins.? @ -No Was critical care preformed (if so, how long)? @ -No Were there social determinants of health that impacted care today? How? (Homelessness, low income, unemployed, alcoholism, drug addiction, transportation, low edu. Level, literacy, decrease access to med. care, snf, rehab)? @ -No Was there de-escalation of care discussed even if they declined (Discuss DNR or withdrawal of care, Hospice)? DNR status @ -No What co-morbidities impacted this encounter? (DM, HTN, Smoking, COPD, CAD, Cancer, CVA, ARF, Chemo, Hep., AIDS, mental health diagnosis, sleep apnea, morbid obesity)? @ -None Was patient admitted / discharged? Hospital course, mention meds given and route, prescriptions, significant lab abnormalities, going to OR and other p ertinent info. @ -Patient presents with right sided back discomfort. On reevaluation patient is significantly improved and comfortable with discharge home. Patient and family are updated on results and need for follow-up. Undiagnosed new problem with uncertain prognosis? @ -No Drug Therapy requiring intensive monitoring for toxicity (Heparin, Nitro, Insulin, Cardizem)? @ -No Were any procedures done? @ -No Diagnosis/symptom? @ -Back pain Acute, or Chronic, or Acute on Chronic? @ -Acute Uncomplicated (without systemic symptoms) or Complicated (systemic symptoms)? @ -Default Side effects of treatment? @ -No Exacerbation, Progression, or Severe Exacerbation? @ -No Poses a threat to life or bodily function? How? (Chest pain, USA, MS, pneumonia, PE, COPD, DKA, ARF, appy, cholecystitis, CVA, Diverticulitis, Homicidal, Suicidal, threat to staff... and all critical care pts) @ -No - Lab Data Result diagrams: 09/20/24 12:17 09/20/24 12:17 Lab Results 09/20/24 09/20/24 09/20/24 Range/Units 12:17 12:17 12:17 WBC 5.91 (4.50-10.00) 10*3/uL RBC 3.73 L (4.40-5.60) 10*6/uL Hgb 11.9 L (13.0-17.0) g/dL Hct 34.9 L (39.6-50.0) % MCV 93.6 (80.0-97.0) fL MCH 31.9 (27.0-32.0) pg MCHC 34.1 (32.0-37.0) g/dL Plt Count 178 (140-440) 10*3/uL MPV 10.5 (9.5-12.2) fL Immature Gran % (Auto) 0.5 % Neutrophils % 73.6 % Lymphocytes % 14.7 % Monocytes % 8.5 % Eosinophils % 2.2 % Basophils % 0.5 % Immature Gran # 0.03 (0.00-0.04) 10*3/uL Neutrophils # 4.35 (1.80-7.70) 10*3/uL Lymphocytes # 0.87 L (0.90-5.00) 10*3/uL Monocytes # 0.50 (0.20-1.00) 10*3/uL Eosinophils # 0.13 (0.04-0.35) 10*3/uL Basophils # 0.03 (0.00-0.10) 10*3/uL PT 11.4 (10.0-12.5) sec INR 1.0 (<1.2) APTT 30.4 H (22.0-30.0) sec D-Dimer 0.39 (<0.60) mg/L FEU Sodium 133 L (137-145) mmol/L Potassium 4.3 (3.5-5.1) mmol/L Chloride 97 L (98-107) mmol/L Carbon Dioxide 28 (22-30) mmol/L Anion Gap 8 mmol/L BUN 12 (9-20) mg/dL Creatinine 0.60 L (0.66-1.25) mg/dL Est GFR (CKD-EPI)AfAm >90 (>60 ml/min/1.73 sqM) Est GFR (CKD-EPI)NonAf 90 (>60 ml/min/1.73 sqM) Glucose 109 H (74-99) mg/dL Calcium 10.0 (8.4-10.2) mg/dL Total Bilirubin 0.9 (0.2-1.3) mg/dL AST 24 (17-59) U/L ALT 18 (4-49) U/L Alkaline Phosphatase 93 (38-126) U/L Total Protein 6.8 (6.3-8.2) g/dL Albumin 4.3 (3.5-5.0) g/dL Disposition Clinical Impression: Back pain Disposition: HOME SELF-CARE Condition: Stable Instructions (If sedation given, give patient instructions): Back Pain (ED) Additional Instructions: Prescription for muscle relaxer sent to pharmacy. [id number] Tylenol or Motrin as needed. Return for increased pain, difficulty breathing, fever, worsening or changing symptoms or other concerns. Prescriptions: Cyclobenzaprine [Flexeril] 10 mg PO TID PRN #12 tablet PRN Reason: Pain Is patient prescribed a controlled substance at d/c from ED?: No Referrals: Angel Garcia MD [Primary Care Provider] - 1-2 days Time of Disposition: 13:54
[2024-09-20] MEDS: ACETAMINOPHEN IV (For NPO) 1,000 MG in EMPTY BAG 1 BAG IVPB ONE (12:24)
[2024-09-20] MEDS: KETOROLAC 15 MG/ML 1 ML VIAL IVP STA (12:25)
[2024-09-20 12:31] LABS: Basophils # (A) 0.03 10*3/uL (0.00-0.10); Basophils % (A) 0.5 %; Eosinophils # (A) 0.13 10*3/uL (0.04-0.35); Eosinophils % (A) 2.2 %; HCT 34.9 % (39.6-50.0); HGB 11.9 g/dL (13.0-17.0); Lymphocytes # (A) 0.87 10*3/uL (0.90-5.00); Lymphocytes % (A) 14.7 %; MCH 31.9 pg (27.0-32.0); MCHC 34.1 g/dL (32.0-37.0); MCV 93.6 fL (80.0-97.0); Monocytes # (A) 0.50 10*3/uL (0.20-1.00); Monocytes % (A) 8.5 %; Neutrophils # (A) 4.35 10*3/uL (1.80-7.70); Neutrophils % (A) 73.6 %; Platelet Count 178 10*3/uL (140-440); RBC 3.73 10*6/uL (4.40-5.60); RDW 12.0 % (11.5-14.5); WBC 5.91 10*3/uL (4.50-10.00)
[2024-09-20 12:45] LABS: INR 1.0 (<1.2); Partial Thromboplastin Time 30.4 sec (22.0-30.0); Prothrombin Time 11.4 sec (10.0-12.5)
[2024-09-20 12:46] LABS: ALT 18 U/L (4-49); AST 24 U/L (17-59); African American GFR (CKD) >90 (>60 ml/min/1.73 sqM); Albumin 4.3 g/dL (3.5-5.0); Alkaline Phosphatase 93 U/L (38-126); Anion Gap 8 mmol/L; Blood Urea Nitrogen 12 mg/dL (9-20); Calcium 10.0 mg/dL (8.4-10.2); Carbon Dioxide 28 mmol/L (22-30); Chloride 97 mmol/L (98-107); Glucose 109 mg/dL (74-99); Non-African American GFR(CKD) 90 (>60 ml/min/1.73 sqM); Potassium 4.3 mmol/L (3.5-5.1); Sodium 133 mmol/L (137-145); Total Protein 6.8 g/dL (6.3-8.2)
--- NOTE | 2024-09-20 12:47 | XR ---
EXAMINATION TYPE: XR chest 2V DATE OF EXAM: 09/20/2024 12:24 PM COMPARISON: 08/09/24 CLINICAL INDICATION: Male, 89 years old with history of pain: Shortness of breath TECHNIQUE: XR chest 2V views of the chest are obtained. FINDINGS: Scattered senescent parenchymal changes noted. Hyperinflation compatible with COPD. No evidence for infiltrate. No evidence for atelectasis. Heart size is stable. Mediastinal structures are stable and grossly unremarkable. No evidence for hilar prominence. Degenerative changes dorsal spine. IMPRESSION: 1. No evidence for acute pulmonary disease. [facility], , 09/20/2024 12:45 PM
[2024-09-20 13:01] VITALS: RESP 16
[2024-09-20 14:22] VITALS: BP 164/87; PULSE 59; TEMP 97.6
== END 2024-09-20 14:33 | disposition home or self-care (01) ==
LOC: EC 11:41
DX: M54.9 Dorsalgia, unspecified (principal); Z88.0 Allergy status to penicillin; Z88.5 Allergy status to narcotic agent; Z87.891 Personal history of nicotine dependence
CPT/HCPCS: 36415; 85379; 80053; 85025; 85610; 85730; 71046; 99284; 96365; 96375; J0131; J1885